=== PATIENT | female | born 1930 | race Caucasian/White ===

== ENCOUNTER → 2016-05-12 | Outpatient (CLI) | payer MEDICARE, OTHER ==
[~2016-05-12] MED LIST: /ONDA4TA OR; /PANT40TA OR; /PANT40TA PO; ACET-654 PO; ACET65TA OR; ALBU17IN INH; ASPI81TA83 OR; ASPI81TA85 PO; ATEN50TA2 OR; ATOR40TA PO; BACITAB OR; BACITAB3 PO; CALCCHW12 OR; CALCTAB9 OR; CALTRATE 600 + D PO; CALTTAB11 PO; CENTTAB PO; CIPR500T89 PO; CIPRO OR; COLA100C PO; DYAZ37.5 OR; ENSUPOW PO; ENTO3CAP5 PO; FERG1TAB PO; FLAG500T OR; FLAG500T PO; FLEEENE4 PR; LIDO5DIS36 TD; LIPI10TA OR; LIPI80TA PO; LOPR1TAB6 PO; LORT5TAB PO; LOVE1INJ SC; LYRI75CA PO; MAGN1TAB25 PO; MAGN250T PO; MAGO400T PO; MECL-68 PO; MECL25CH PO; MELOPOW OR; METO25TAB PO; METR0.00 TOP; METRONIDAZOLE TD; MILKSUS PO; MIRA3350 PO; MOME50SP; MULTCAP11 PO; NYAM10003 EXT; PERCOCET PO; PREG25CA PO; RECL5INJ2 IV; RECLAST IV IV; SENO8.6T10 PO; SENO8.6T2 PO; SYSTANE EYE DROPS OU; SYSTSOL11 OU; TRIA37.53 PO; TYLE167L PO; TYLE500T78 PO; VALI5TAB PO; VITA100037 PO; VITAMIN D OR; WARF05TA PO; [UNRECOGNIZED DRUG - CODE] OR; bactroban TOP
--- NOTE | 2016-05-17 10:17 | RADONC ---
RADIATION ONCOLOGY FOLLOWUP NOTE: DATE: 05/12/2016 DIAGNOSIS: Left breast cancer. STAGE: Stage I A, [id number] ECOG PERFORMANCE STATUS: 0 Ms. 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 The patient presents today reporting that she is doing quite well with no complaints at this time related to her radiation therapy or disease. She has no breast or bone pain. REVIEW OF SYSTEMS: The patient's review of systems is noncontributory. Denies nausea, vomiting, fevers, chills, night sweats, diplopia, headaches, anxiety or depression, anorexia, weight loss, visual disturbances, chest pain, urinary or bowel difficulties, bone pain, or neurological problems. PHYSICAL EXAMINATION: The patient is a well-developed, well-nourished female in no acute distress. HEENT exam is normocephalic, atraumatic. Extraocular movements are intact. There is no palpable cervical, supraclavicular, infraclavicular, axillary, or inguinal lymphadenopathy present. Lungs are clear to auscultation and percussion. Heart has a regular rate and rhythm. Abdomen is benign with no hepatosplenomegaly, masses, or tenderness. Breast examination reveals no masses or discharge bilaterally. Skeletal examination reveals no tenderness to pressure or percussion of the bony skeleton. Extremities reveal no clubbing, cyanosis, or edema. Neurologic exam is grossly intact, as is the remainder of the physical examination. ASSESSMENT: The patient is clinically CHARLES at this time and will be seen by us again in 6 months for further followup. She will also continue to be followed by her other physicians as well. cc: José Antonio Rodriguez MD
== END ==
LOC: M ONCR 13:14
PROVIDERS: ATTEND Radiology Radiation Oncology
DX: C50.412 Malignant neoplasm of upper-outer quadrant of left female breast (principal)

== ENCOUNTER 2016-07-09 20:10 | Observation (INO) | payer MEDICARE, OTHER ==
[~2016-07-09] VITALS: Ht 157.5 cm; Wt 60.0 kg
[~2016-07-09 20:10] MED LIST changes: -COLA100C PO; +COLA100C3 PO
[2016-07-09] MEDS ORDERED: TAMO20TA4 PO (20:41)
[2016-07-09] MEDS ORDERED: FLUTISP (20:41)
[2016-07-09] MEDS ORDERED: LABETALOL HCL 100 MG/20 ML VIAL IV STA (20:44)
[2016-07-09] MEDS ORDERED: MORPHINE 4 MG/ML 1ML SYRINGE IV ONE (20:45)
[2016-07-09 20:47] LABS: BASO % 0.5 % (0.0-1.0); EOS # 0.1 K/mm3 (0.0-0.50); EOS % 1.1 % (0.0-3.0); LARGE UNSTAINED CELL # 0.1 K/mm3 (0.0-0.4); LARGE UNSTAINED CELL % 2.1 % (0.0-4.0); LYMPH # 1.6 K/mm3 (1.5-4.5); LYMPH % 22.9 % (24.0-44.0); MEAN CORPUSCULAR HEMOGLOBIN 29.8 pg (27.0-33.0); MEAN CORPUSCULAR HGB CONC 32.4 g/dl (32.0-36.5); MONO # 0.5 K/mm3 (0.0-0.8); MONO % 8.2 % (0.0-5.0); NEUTROPHILS # 4.3 K/mm3 (1.8-7.7); NEUTROPHILS % 65.2 % (36.0-66.0); PLATELET COUNT, AUTOMATED 158 k/mm3 (150-450); RED CELL DISTRIBUTION WIDTH 13.1 % (11.5-14.5); WHITE BLOOD COUNT 6.5 K/mm3 (4.0-10.0)
[2016-07-09 21:12] LABS: ALBUMIN 3.6 GM/DL (3.2-5.2); ALBUMIN/GLOBULIN RATIO 1.09 (1.00-1.93); ALKALINE PHOSPHATASE 36 U/L (45-117); ALT/SGPT 21 U/L (12-78); ANION GAP 5 MEQ/L (8-16); AST/SGOT 29 U/L (15-37); BILIRUBIN,DIRECT 0.2 MG/DL (0.0-0.2); BILIRUBIN,TOTAL 0.6 MG/DL (0.2-1.0); BLOOD UREA NITROGEN 18 MG/DL (7-18); CALCIUM LEVEL 8.7 MG/DL (8.8-10.2); CARBON DIOXIDE LEVEL 33 MEQ/L (21-32); CHLORIDE LEVEL 101 MEQ/L (98-107); CREATININE FOR GFR 1.22 MG/DL (0.55-1.02); GLOMERULAR FILTRATION RATE 44.4 (>32); GLUCOSE, FASTING 104 MG/DL (83-110); POTASSIUM SERUM 3.8 MEQ/L (3.5-5.1); SODIUM LEVEL 139 MEQ/L (136-145); TOTAL PROTEIN 6.9 GM/DL (6.4-8.2)
[2016-07-09] MEDS ORDERED: ISOVUE-370 76% 100ML VIAL (Q9967) As Ordered ONE (21:33)
--- NOTE | 2016-07-09 22:30 | REPUSA ---
Clinical statement: Pain. Technique: Multiple axial CT images were obtained from the thoracic inlet through the floor of the pe lvis after administration of oral and nonionic intravenous contrast. No comparison is available. Findings: Chest: The pulmonary arteries are well-opacified with contrast, with no intraluminal filling defects to suggest embolism. The thoracic aorta is unremarkable. There is no pericardial or pleural effusion. The lungs are clear. There is no thoracic lymphadenopathy. The thyroid gland is within normal limits . Abdomen: The liver, spleen, pancreas, kidneys, and adrenal glands are unremarkable. Gallbladder is di stended, with moderate amount of pericholecystic free fluid. No gallstones are identified. There is n o evidence of biliary ductal dilatation. The aorta is within normal limits. There is no evidence of a bdominal lymphadenopathy or ascites. Pelvis: There is a large well circumscribed cystic mass in the left lower quadrant, measuring 6.9 x 9 .1 cm. This mass displaces bowel loops to the lateral aspect. There Is moderate sigmoid diverticulos is, without evidence of diverticulitis. Moderate amount of stool fills the colon. The urinary bladder is within normal limits. The other pelvic structures appear grossly intact. There is no evidence of pelvic lymphadenopathy or ascites. Bones: There are no suspicious osseous abnormalities seen. Minimal dextroscoliosis of the thoracis sp ine is appreciated. Right hip arthroplasty is intact. There is internal fixation of the proximal left femur. Multilevel degenerative disc disease is noted in the lower thoracic and lower lumbar spine, m ost severe from L3 through S1. Impression: 1. No evidence of aorticaneurysm or dissection. 2. No acute intrapulmonary disease. 3. Distended gallbladder with moderate pericholecystic free fluid. No gallstones or biliary ductal d ilatation. If there is further clinical concern, ultrasound is recommended. 4. Large, well circumscribed cystic mass in the left lower quadrant. No solid component is seen with in this lesion. Ultrasound may be helpful for further characterizes lesion. 5.. Moderate sigmoid diverticulosis without evidence of diverticulitis. Moderate constipation. No obs tructive or inflammatory bowel changes. 6. Spondylosis of the thoracic and lumbar spine as described. No acute osseous abnormalities.
--- NOTE | 2016-07-09 23:30 | REPUSA ---
Clinical history: Right upper quadrant pain. Findings: The pancreas is limited in visualization secondary to overlying bowel gas, but appears priya sly unremarkable. The liver demonstrates uniform echotexture and echogenicity, with no mass lesions. The gallbladder demonstrates echogenic shadowing foci consistent with gallstones. Gallbladder wall i s thickened, measuring 7 mm. There is a small amount of pericholecystic free fluid. The common bile d uct measures measuring up to 1 c. The right kidney measures 9.6 x 6.7 x 4.6 cm.There is no evidence o f hydronephrosis or nephrolithiasis. Impression: Cholelithiasis with gallbladder wall thickening, pericholecystic free fluid and extrahepa tic biliary ductal dilatation. The findings are highly suspicious for acute cholecystitis..
[2016-07-09] MEDS ORDERED: metroNIDAZOLE 500 MG in APPROPRIATE DILUENT 1 EA IV ONE (23:45)
[2016-07-09] MEDS ORDERED: CIPROFLOXACIN 400 MG in APPROPRIATE DILUENT 1 EA IV ONE (23:45)
[2016-07-10] MEDS ORDERED: METO12TA PO (00:14)
[2016-07-10] MEDS ORDERED: VITMTA PO (00:14)
[2016-07-10] MEDS ORDERED: BUDE3CAP PO (00:14)
[2016-07-10 01:10] VITALS: BP 172/84
[2016-07-10] MEDS ORDERED: ONDANSETRON 4MG/2ML VIAL (J2405) IV PRN (01:30)
[2016-07-10] MEDS ORDERED: MORPHINE 2 MG/ML 1ML SYRINGE IV PRN (01:30)
[2016-07-10] MEDS ORDERED: LR 1,000 ML IV SCH (01:30)
[2016-07-10 06:30] VITALS: BP 186/88
--- NOTE | 2016-07-10 08:48 | ECGEPIP ---
Stationary ECG Study [facility] - ED Test Date: 2016-07-09 Pat Name: LEA CAMPBELL Department: Room: [place] [address] Gender: F Virologist: chen : [id number] Requested By: LUH ALBA Order Number: [id number] Reading MD: Jory Murillo Measurements Intervals [place] Rate: 89 P: 61 NV: 152 QRS: 55 QRSD: 93 T: 112 QT: 356 QTc: 433 Interpretive Statements SINUS RHYTHM NONSPECIFIC ST & T-WAVE ABNORMALITY INCREASED RATE 12/03/15 Electronically Signed On 07-10-2016 8:47:55 EDT by Jory Murillo
--- NOTE | 2016-07-10 15:05 | REP ---
PORTABLE CHEST: ONE VIEW: HISTORY: Chest pain. COMPARISON: 08/02/2015 The lungs are hyperinflated. An increase in interstitial markings is present in the lungs. The cardiac silhouette is enlarged. The pulmonary vasculature is normal in appearance. IMPRESSION: 1. COPD. 2. Cardiomegaly. Signed by Faheem Marks MD 07/10/2016 08:11 A
--- NOTE | 2016-07-10 19:56 | HPE ---
DATE OF ADMISSION: 07/09/2016 CHIEF COMPLAINT: Epigastric pain. HISTORY OF PRESENT ILLNESS: The patient is a 85-year-old female who has never had any types of abdominal or epigastric pains in the past. No recent trauma or travel. She developed pain shortly after eating last evening right in the epigastric area wrapping around both sides of her upper abdomen towards her back. She tried walking it off, thinking that it was gas pains, but without any improvement. She came into emergency room for evaluation. CT scan was completed due to hypertension and to rule out acute vascular injury. However, it did show signs of likely acute cholecystitis which were confirmed on ultrasound. Therefore I was called to evaluate. This morning her pain has completely resolved. She has not had any problems since midnight, denies having any nausea or vomiting, fever, sweats or chills, or changes in bowel or bladder habits associated with this pain. It was a one-time pain and she has never had anything like it in the past. No previous abdominal surgeries. No problems with heartburn or acid reflux or any difficulty with swallowing. PAST MEDICAL HISTORY: Positive for hypertension, previous left breast cancer, hyperlipidemia, diverticulitis. PAST SURGICAL HISTORY: Cataract surgery, sinus surgery, left breast lumpectomy, left femur repair and right hip repair. ALLERGIES: ALENDRONATE KEFLEX, CIPRO, SULFA DRUGS: HOME MEDICATIONS: Please see med rec. SOCIAL HISTORY: Denies drug, alcohol, tobacco abuse. FAMILY HISTORY: Noncontributory. REVIEW OF SYSTEMS: Pertinent positives and negatives as stated in the history of present illness (HPI). PHYSICAL EXAMINATION: GENERAL: Alert and oriented times three. No acute distress. VITALS: Temperature 98.7, pulse 64, respirations 18, blood pressure 165/77, pulse oximetry 99% room air. HEENT: Pupils equal, round, and react to light and accommodation. HEART: S1, S2, regular rate and rhythm. LUNGS: Clear to auscultation bilaterally. ABDOMEN: Soft, nontender, nondistended. Bowel sounds positive. EXTREMITIES: No clubbing, cyanosis or edema. LABORATORY DATA: White count 6.5, hemoglobin 13, platelets 158. Potassium 3.8, creatinine 1.22. BNP 450. IMAGING STUDIES Abdominal ultrasound shows a gallbladder wall thickening at 7 mm. There are also gallstones, bile duct is up to 1 cm, and a very trace amount of pericholecystic fluid. ASSESSMENT/PLAN: The patient is an 85-year-old female with acute onset epigastric abdominal pain that has since then resolved, which was likely secondary to acute on chronic cholecystitis versus a very mild gastritis. Ultrasound findings of wall thickening and trace pericholecystic fluid and stones appear to be more chronic in nature rather than acute, especially associated with normal labs, both normal white count and the liver enzymes. With the patient's symptoms pain completely resolved at this time, recommendation is to discharge home. If symptoms return within the next couple days to a couple weeks, then she will see me in the office and after appropriate cardiac clearance, we will plan for elective surgery. However, if her symptoms do not return anytime in the near future, then she likely will not need any surgical intervention completed.
== END 2016-07-10 11:04 | disposition home or self-care (01) ==
LOC: M ED 21:04 → M ED INP 21:05 → M MSPAV 07-10 01:19
PROVIDERS: ADMIT Surgery; ATTEND Surgery
DX: K81.0 Acute cholecystitis (principal); I10 Essential (primary) hypertension; E78.4 Other hyperlipidemia; K57.32 Diverticulitis of large intestine without perforation or abscess without bleeding; Z85.3 Personal history of malignant neoplasm of breast; Z88.2 Allergy status to sulfonamides; Z79.899 Other long term (current) drug therapy; R06.02 Shortness of breath
CPT/HCPCS: 71010; 71260; 74177; 76705; 80048; 80076; 82550; 82553; 83690; 83880; 84484; 85025; 93005; 93041; 94760; 96365; 96367; 96375; 99285; G0378; J0744; Q9967

== ENCOUNTER 2016-07-12 10:43 | Emergency (ER) | payer MEDICARE, OTHER ==
[~2016-07-12] VITALS: Ht 157.5 cm; Wt 61.2 kg
[~2016-07-12 10:43] MED LIST changes: +BUDE3CAP PO; +FLUTISP; +METO12TA PO; +TAMO20TA4 PO; +VITMTA PO
[2016-07-12] MEDS ORDERED: ENSULIQ2 PO (10:53)
[2016-07-12] MEDS ORDERED: [UNRECOGNIZED DRUG - CODE] TD (10:53)
[2016-07-12] MEDS ORDERED: ONDANSETRON 4 MG TAB (S0181) PO ONE (11:15)
[2016-07-12 11:17] LABS: BASO % 0.6 % (0.0-1.0); EOS # 0.1 K/mm3 (0.0-0.50); EOS % 1.6 % (0.0-3.0); LARGE UNSTAINED CELL # 0.1 K/mm3 (0.0-0.4); LARGE UNSTAINED CELL % 2.1 % (0.0-4.0); LYMPH % 12.4 % (24.0-44.0); MEAN CORPUSCULAR HEMOGLOBIN 29.5 pg (27.0-33.0); MEAN CORPUSCULAR HGB CONC 32.2 g/dl (32.0-36.5); MEAN CORPUSCULAR VOLUME 91.7 fl (80.0-96.0); MONO # 0.4 K/mm3 (0.0-0.8); MONO % 6.2 % (0.0-5.0); NEUTROPHILS # 5.3 K/mm3 (1.8-7.7); PLATELET COUNT, AUTOMATED 176 k/mm3 (150-450); WHITE BLOOD COUNT 6.9 K/mm3 (4.0-10.0)
[2016-07-12] MEDS ORDERED: ZOFR4TAB3 PO (11:55)
[2016-07-12 12:00] VITALS: BP 178/80
[2016-07-16] MEDS ORDERED: AMOX500T2 PO (10:12)
== END 2016-07-12 12:12 | disposition home or self-care (01) ==
LOC: M ED 11:22
DX: R11.0 Nausea (principal); I10 Essential (primary) hypertension; M54.9 Dorsalgia, unspecified; E05.90 Thyrotoxicosis, unspecified without thyrotoxic crisis or storm; Z85.3 Personal history of malignant neoplasm of breast; Z79.82 Long term (current) use of aspirin; Z79.899 Other long term (current) drug therapy; Z79.818 Long term (current) use of other agents affecting estrogen receptors and estrogen levels

== ENCOUNTER 2016-07-26 07:24 | Inpatient (IN) | payer MEDICARE, OTHER ==
[~2016-07-26] VITALS: Ht 157.5 cm; Wt 58.1 kg
[~2016-07-26 07:24] MED LIST changes: +AMOX500T2 PO; +ENSULIQ2 PO; +ZOFR4TAB3 PO; +[UNRECOGNIZED DRUG - CODE] TD
[2016-07-26] MEDS ORDERED: NS 1,000 ML IV SCH (07:50)
[2016-07-26] MEDS ORDERED: ONDANSETRON 4MG/2ML VIAL (J2405) IV ONE (08:00)
--- NOTE | 2016-07-26 08:23 | REP ---
Clinical: Lower chest and abdominal pain . Comparison: 07/09/2016 . Findings: The mediastinum and cardiac silhouette are stable and within normal limits for portable technique. The lung betancur demonstrate chronic stable changes without acute consolidation, effusion, or pneumothorax. Skeletal structures are intact. Impression: No acute cardiopulmonary process. Signed by Pasquale Naranjo MD 07/26/2016 08:14 A
[2016-07-26] MEDS: MORPHINE 2 MG/ML 1ML SYRINGE IV PRN ×2 (08:30→08:54)
[2016-07-26 08:33] LABS: BASO % 0.5 % (0.0-1.0); EOS % 0.5 % (0.0-3.0); LARGE UNSTAINED CELL # 0.1 K/mm3 (0.0-0.4); LARGE UNSTAINED CELL % 1.5 % (0.0-4.0); LYMPH # 0.9 K/mm3 (1.5-4.5); LYMPH % 11.4 % (24.0-44.0); MEAN CORPUSCULAR HEMOGLOBIN 31.2 pg (27.0-33.0); MEAN CORPUSCULAR HGB CONC 33.4 g/dl (32.0-36.5); MEAN CORPUSCULAR VOLUME 93.4 fl (80.0-96.0); MONO # 0.6 K/mm3 (0.0-0.8); MONO % 8.2 % (0.0-5.0); NEUTROPHILS % 77.9 % (36.0-66.0); PLATELET COUNT, AUTOMATED 141 k/mm3 (150-450); RED CELL DISTRIBUTION WIDTH 12.9 % (11.5-14.5); WHITE BLOOD COUNT 7.7 K/mm3 (4.0-10.0)
[2016-07-26 08:45] LABS: INR 1.09
[2016-07-26 08:54] LABS: RENAL EPITHELIAL CELLS 1 /HPF
[2016-07-26 09:01] LABS: ALBUMIN 3.4 GM/DL (3.2-5.2); ALBUMIN/GLOBULIN RATIO 0.87 (1.00-1.93); BILIRUBIN,DIRECT 0.2 MG/DL (0.0-0.2); BILIRUBIN,TOTAL 0.7 MG/DL (0.2-1.0); CALCIUM LEVEL 9.2 MG/DL (8.8-10.2); GLOMERULAR FILTRATION RATE 55.8 (>32); POTASSIUM SERUM 3.5 MEQ/L (3.5-5.1); TOTAL PROTEIN 7.3 GM/DL (6.4-8.2)
[2016-07-26] MEDS ORDERED: ISOVUE-370 76% 100ML VIAL (Q9967) As Ordered ONE (09:28)
--- NOTE | 2016-07-26 11:40 | REP ---
CT STUDY OF THE ABDOMEN AND PELVIS WITH IV BUT WITHOUT ORAL CONTRAST: HISTORY: Left lower quadrant pain. Question diverticulitis. Comparison CT study July 09, 2016. Comparison is also made with November 13, [address] study[address] A remote prior CT is reviewed from February 2010. CT contrast dose: 100 mL of Isovue [address] FINDINGS: Again noted is the known right hepatic lobe hemangioma stable since the 2009 prior study measuring 3.9 cm in greatest diameter. There is some diffuse fatty infiltration of the liver with areas of fat sparing near the hemangioma. No other liver mass lesion is seen. The spleen is unchanged in size and homogeneous in texture. No adrenal lesion is seen on either side. No pancreatic lesion is seen. There is a large cyst at the lower pole left kidney again noted measuring 9.6 x 9.5 x 8.2 cm. No hydronephrosis or renal mass lesion is seen. The gallbladder is unremarkable. No retroperitoneal mass or adenopathy is seen. There is left colonic diverticulosis. There is a segment of left colon demonstrating mural thickening which may reflect mild diverticulitis but no abscess or free air is seen. There is minimal pericolonic stranding. Victor artifact is seen on pelvic CT imaging because of metallic hip replacement on the right and pins on the left. No abdominal wall defect is seen. Moderate colonic stool. IMPRESSION: 1. Segment of mural thickening in the sigmoid colon involved by diverticulosis with some pericolonic stranding. These changes are compatible with mild diverticulitis. No abscess or free air seen. 2. Benign large left renal cyst again noted. 3. Stable 3.9 cm hemangioma of the liver high in the right lobe. 4. No other significant finding. Signed by Ajith Pastrana MD 07/26/2016 12:19 P
[2016-07-26] MEDS ORDERED: metroNIDAZOLE 500 MG in APPROPRIATE DILUENT 1 EA IV ONE (11:45)
[2016-07-26] MEDS ORDERED: ERTAPENEM SODIUM 1 GM in NS MINI-BAG PLUS 50 ML IV ONE (11:45)
[2016-07-26] MEDS ORDERED: KETOROLAC 30 MG/ML VIAL (J1885) IV PRN (12:00)
[2016-07-26] MEDS ORDERED: NORCO, ANEXSIA 5/325MG TABLET (HYDROcodone/ACETAMINOPHEN) PO PRN (12:00)
[2016-07-26] MEDS ORDERED: ACETAMINOPHEN TAB 650MG DOSE (2X325MG) PO PRN (12:00)
[2016-07-26] MEDS ORDERED: ONDANSETRON 4MG/2ML VIAL (J2405) IV PRN (12:00)
[2016-07-26] MEDS ORDERED: MOM 30ML SUSPENSION UDC PO PRN (12:00)
[2016-07-26] MEDS ORDERED: MORPHINE 2 MG/ML 1ML SYRINGE IV PRN (12:00)
[2016-07-26 13:35] VITALS: BP 147/69
[2016-07-26] MEDS: LR 1,000 ML IV SCH ×2 (14:44→20:55)
[2016-07-26] MEDS: HEPARIN SOD (PORCINE) 5000 UNITS/ML VIAL SC SCH ×2 (14:45→20:54)
[2016-07-26] MEDS: SENOKOT S TAB PO SCH ×2 (14:45→20:56)
[2016-07-26] MEDS: ASPIRIN 81 MG ENTERIC TAB PO SCH (14:45)
[2016-07-26] MEDS: MULTIVITAMINS/MINERALS THERAP 1 TAB PO SCH (14:45)
[2016-07-26] MEDS: BUDESONIDE EC 3 MG CAP (ENTOCORT EC) PO SCH (14:45)
[2016-07-26] MEDS: TAMOXIFEN CITRATE 10 MG TAB PO SCH (14:45)
[2016-07-26] MEDS: FLUTICASONE PROP 0.05% NASAL SPRAY 16 GM (FLONASE) SCH (14:45)
[2016-07-26] MEDS: PANTOPRAZOLE 40MG TAB (PROTONIX) PO SCH (14:45)
[2016-07-26] MEDS: VITAMIN D 1,000 INTERNATIONAL UNITS TABLET PO SCH (14:46)
--- NOTE | 2016-07-26 18:49 | CR ---
DATE OF CONSULTATION: 07/26/2016 CONSULT REQUESTED BY: Dr. Morris. REASON FOR CONSULT: Medical management. CHIEF COMPLAINT: Abdominal pain. PRIMARY CARE PHYSICIAN: Dr. Rodriguez. RADIOLOGY ONCOLOGIST: Dr. Schumacher. ONCOLOGIST: Dr. Lopez. PREMISES TECHNICIAN: Dr. Benavides. CODE STATUS: DO NOT RESUSCITATE/DO NOT INTUBATE. HISTORY OF PRESENT ILLNESS: MS. Serrano is an 85-year-old female with multiple past medical history who presented due to experiencing abdominal pain. Patient expressed that the pain is mostly sharp and tender to palpation all over her abdomen and especially on the left lower quadrant. Patient expressed that he pain started yesterday in the morning, 4 or 5 out of 10. Patient could tolerate orals in that time. Patient had three episodes of bowel movements; however, patient did not experience any diarrhea or hematochezia or melena. She also lost her appetite and had some chicken broth for lunch and toast for dinner; however, this morning , around 5 a.m., patient expressed that her pain increased tremendously to 10 out of 10, sharp, especially on the left lower quadrant. Patient expressed that around 6:30, she called her neighbor to bring her to the hospital. Patient had one episode of small bowel movement; however, patient denies noticing melena or hematochezia. Patient also expressed that she was mildly nauseated. However, patient denied episode of vomiting. Patient did not experience chest pain, palpitation, racing or skipping heartbeat. Patient also denies noticing erythema or extending of her abdominal. patient admitted on 07/09/2016 due to epigastric pain secondary to acute on chronic cholecystitis. she was schedule to have elective cholecystectomy today by Dr. Morris. Due to her extended cardiac history she was seen and cleared by Dr. Benavides for elective cholecystectomy. patient also expressed that she has sore throat and rapid test was positive for strep throat. General surgery was consulted and patient was admitted by general surgery. Hospitalist consulted for medical management. Patient received one dose of Zofran as well as started on ertapenem and metronidazole IV. ALLERGIES: ALENDRONATE, CEPHALEXIN, CIPROFLOXACIN, SULFA DRUGS. HOME MEDICATIONS: - amoxicillin clavulanate 500 mg by mouth twice a day - aspirin 81 mg by mouth daily - atorvastatin 40 mg by mouth every evening - budesonide 3 mg by mouth daily - Caltrate one tablet by mouth twice a day - Ensure 1 liquid twice a day - fluticasone propionate one aspirate in nares daily - magnesium 400 mg by mouth twice a day - meclizine 25 mg by mouth as needed for vertigo, dizziness - metoprolol 25 mg by mouth twice a day - metronidazole 1 dose topical daily as needed for rosacea - multivitamin 1 tablet by mouth daily - oxybutynin 3.9 mg transdermally every four days - Systane Ultra one drop each eye as needed for dry eye - tamoxifen 20 mg by mouth daily - vitamin D 1000 units by mouth daily PAST MEDICAL HISTORY: 1. Coronary artery disease. Had dqa-[id number] myocardial infarction (NSTEMI ) 12/2013 and 02/2014. Normal perfusion, ejection fraction 51%. [facility] in [place] 11/2015 was normal, normal perfusion. 2. Hypertension. White coat syndrome. 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 4. Hyperlipidemia. 5. Osteoporosis. Dexa last done on 07/2009, not repeated as had left/right hip fracture, gets re-classed , , 2014 and discontinue after five doses. 6. Hyperplastic cone biopsies in 1988. 7. Generalized osteoarthritis (OA). 8. Vitamin D deficiency. 9. Meniere's disease. 10. Diverticulitis, recurrent. 11. Thyroid nodule. 12. Vestibular neuritis. 13. Echocardiogram 12/2013. Normal left side and systolic function, grade 1 diastolic congestive heart failure and mildly hypokinetic right ventricle, moderate tricuspid insufficiency, severe pulmonary hypertension. 14. Left hip fracture 12/2013. Qny-TN-ohafwhkyc myocardial infarction (NSTEMI) found postoperatively. 15. Right breast cancer, finding ductal carcinoma, ER+ - HI+ - HER2 negative and one scan 12/27 negative for metastasis. 16. Stress urinary incontinence/urge incontinence. PAST SURGICAL HISTORY: 1. Fine needle aspiration (FNA) of thyroid nodules 12/2002. 2. Sinus symptoms times two. 3. Colonoscopy. Hydroplastic polyp only 10/2008. 4. Left hip fracture 11/2011. 5. Right hip fracture 11/2013. 6. Left breast lumpectomy 09/2015. FAMILY HISTORY: Patient does not have any children. Patient does not have any brothers or sisters. Patient's father due to coronary artery disease, diagnosed with heart disease. Patient's mother due to ulcers, due to old age. SOCIAL HISTORY: Patient denies history of illicit drug use. Patient denies history of smoking or alcohol usage. Patient has traveled to [place] and [place]. Patient does not have pets at home. Patient lives alone. REVIEW OF SYSTEMS: GENERAL: Patient denies fever, chills, night sweats, weight loss, weight gain. HEENT: Patient denies acute vision or hearing changes. Patient denies problems with chewing food or sinusitis. NECK: Patient has loss of circulation and motion of her neck; however, she expressed that she has a sore throat. HEART: Patient denies palpitation, racing or skipping heartbeat. No chest pain. LUNGS: Patient has shortness of breath and coughing. ABDOMEN: Patient expressed that her pain has decreased to 5/10, especially on the left lower quadrant, which exists with palpitations. Patient denies melena, hematochezia, hemoptysis; however, patient was nauseated, but no vomiting. NEUROLOGICAL: Patient has history of transient ischemic attack, seizure-type activities. PHYSICAL EXAMINATION: VITAL SIGNS: Temperature 98.1, pulse 88, respiratory rate 16, blood pressure 176/74, pulse oximetry 98% on room air. GENERAL APPEARANCE: Patient was lying on the bed, in no acute distress. Patient was alert, awake and oriented to time, place and person. HEENT: Normocephalic, atraumatic. Pupils are reactive to light. Oral mucosa is moist. NECK: Soft. No lymphadenopathy or thyromegaly. No jugular venous distention (JVD). HEART: Regular rate and rhythm. Normal S1, S2. ABDOMEN: Soft. Tender to palpation in all quadrants, especially tender to palpation in the left upper and lower quadrants; however, no guarding. Positive bowl sounds in all quadrants. No erythema or lymphadenopathy or swelling was noted. No hepatosplenomegaly. LUNGS: Clear breath sounds bilaterally. Good air movement. NEUROLOGIC: Cranial nerves II-XII intact. No focal deficiencies. EXTREMITIES: No lower extremity edema. Plus two pulses in both upper and lower extremities. Normal strength in both upper and lower extremities (however, at this point 5/5). LABORATORY DATA: White blood cells 7.7, red blood cells 4.36, hemoglobin 13.6, hematocrit 40.7, MCV 93.4, MCH 31.2, MCHC 33.4, RDW 12.9, platelet count 141. Neutrophil percentage 7.9, lymphocyte percentage 14.4, monocyte percentage 8.2, eosinophil percentage 0.5, basophil percentage 0.2, leukocyte percentage 1.5. PT 14.2. INR 1.09. APTT 25.4. Sodium 141, potassium 3.5, chloride 103, carbon dioxide 30, anion gap 8, BUN 20, creatinine 1, glomerular filtration rate 55.8, fasting glucose 107, lactic acid 1.2, calcium 9.2, magnesium 2. Total bilirubin 0.7, direct bilirubin 0.2, AST 20, ALT 15, alkaline phosphatase 38, total protein 7.3, albumin 3.4, lipase 233. Urinalysis (UA): Urine color yellow, urine appearance hazy, urine pH 8, urine specific gravity 1.019, urine protein negative, urine glucose negative, urine ketones negative, urine blood negative, urine nitrate negative, urine bilirubin negative, urine urobilinogen 0.2, urine leukocyte esterase negative, urine white blood cells 2, urine red blood cells 2, urine hyaline casts 0.2, urine bacteria negative, urine common epithelial cells 11, urine transient epithelial cells 2. IMAGING TECHNIQUE: Chest x-ray shows no acute cardiopulmonary process. CT abdomen and pelvis with IV contrast only shows segment of mural thickening in the sigmoid colon involved by the diverticulosis and some pericolonic ascending. These changes are compatible with mild diverticulitis. No abscess or free air is seen. A benign large renal cyst again noted. A stable at 3.9 cm hemangioma of the liver high in the right lobe. No other significant finding was noticed. ASSESSMENT AND PLAN: 1. Noncomplicated diverticulitis. Dr. Morris has been consulted by the emergency room (ER). At this time, patient was started on lactate Ringer's at the rate of 125 mL per hour. Patient is also on Flagyl and Invanz 1 gram IV every 24 hours. Patient is on a clear liquid diet. Patient is on Zofran and Protonix. We will continue the patient on Toradol 50 mg IV every 6 hours as needed and morphine. 2. History of coronary artery disease. Patient has a history of eoz-[id number] myocardial infarction (NSTEMI). At this time, we will continue patient on aspirin and Lipitor. Continue patient on Lopressor 25 mg by mouth twice a day. 3. Hyperlipidemia. Patient is on Lipitor 40 mg by mouth every evening. 4. Vitamin D deficiency. We will continue patient on vitamin D 1000 units by mouth daily. 5. Gastrointestinal (GI) prophylaxis. Patient is on Protonix 40 mg by mouth daily. 6. Mixed stress and urgency urinary incontinence. Patient is on oxybutynin 5 mg by mouth daily. 7. Deep venous thrombosis (DVT) prophylaxis. Patient is on heparin 5000 units subcutaneously every 8 hours. 8. Nasal allergies. We will continue patient on fluticasone one spray in each nostril daily. 9. Strep throat. Patient is on Invanz. 10. Chronic Cholecystitis. At this time patient is stable. Surgery is consulted. My preceptor for this patient encounter was Dr. Franchesca Hoff. The preceptor was physically present in the building during the encounter and was fully available as needed. All aspects of the patient interview, examination, medical decision-making process, and medical care plan development were reviewed and approved by the preceptor. The preceptor is aware and concurs with the plan as stated in the body of this note and will attest to such by his/her co-signature. SHYANN
[2016-07-26] MEDS: ATORVASTATIN 20 MG TAB PO SCH (20:55)
[2016-07-26] MEDS: metroNIDAZOLE 500 MG in APPROPRIATE DILUENT 1 EA IV SCH (20:55)
[2016-07-26] MEDS: METOPROLOL TART 25 MG TABLET PO SCH (20:56)
[2016-07-26 22:00] VITALS: BP 119/57
[2016-07-27] MEDS: metroNIDAZOLE 500 MG in APPROPRIATE DILUENT 1 EA IV SCH ×3 (04:24→20:07)
[2016-07-27] MEDS: LR 1,000 ML IV SCH (05:43)
[2016-07-27] MEDS: HEPARIN SOD (PORCINE) 5000 UNITS/ML VIAL SC SCH ×3 (05:44→21:58)
[2016-07-27 06:00] VITALS: BP 142/68
[2016-07-27 07:03] LABS: MEAN CORPUSCULAR HEMOGLOBIN 30.7 pg (27.0-33.0); MEAN CORPUSCULAR HGB CONC 33.4 g/dl (32.0-36.5); MEAN CORPUSCULAR VOLUME 91.7 fl (80.0-96.0); WHITE BLOOD COUNT 5.2 K/mm3 (4.0-10.0)
[2016-07-27 07:19] LABS: ALBUMIN 2.8 GM/DL (3.2-5.2); ALBUMIN/GLOBULIN RATIO 0.78 (1.00-1.93); ALKALINE PHOSPHATASE 33 U/L (45-117); ALT/SGPT 12 U/L (12-78); ANION GAP 3 MEQ/L (8-16); AST/SGOT 19 U/L (15-37); BILIRUBIN,TOTAL 0.6 MG/DL (0.2-1.0); BLOOD UREA NITROGEN 11 MG/DL (7-18); CARBON DIOXIDE LEVEL 33 MEQ/L (21-32); CHLORIDE LEVEL 106 MEQ/L (98-107); CREATININE FOR GFR 0.92 MG/DL (0.55-1.02); GLOMERULAR FILTRATION RATE > 60.0 (>32); GLUCOSE, FASTING 87 MG/DL (83-110); MAGNESIUM LEVEL 1.9 MG/DL (1.8-2.4); POTASSIUM SERUM 3.5 MEQ/L (3.5-5.1); SODIUM LEVEL 142 MEQ/L (136-145); TOTAL PROTEIN 6.4 GM/DL (6.4-8.2)
[2016-07-27] MEDS: TAMOXIFEN CITRATE 10 MG TAB PO SCH (08:40)
[2016-07-27] MEDS: SENOKOT S TAB PO SCH ×2 (08:40→20:06)
[2016-07-27] MEDS: VITAMIN D 1,000 INTERNATIONAL UNITS TABLET PO SCH (08:40)
[2016-07-27] MEDS: MULTIVITAMINS/MINERALS THERAP 1 TAB PO SCH (08:40)
[2016-07-27] MEDS: BUDESONIDE EC 3 MG CAP (ENTOCORT EC) PO SCH (08:40)
[2016-07-27] MEDS: METOPROLOL TART 25 MG TABLET PO SCH ×2 (08:41→20:07)
[2016-07-27] MEDS: ASPIRIN 81 MG ENTERIC TAB PO SCH (08:41)
[2016-07-27] MEDS: PANTOPRAZOLE 40MG TAB (PROTONIX) PO SCH (08:41)
[2016-07-27] MEDS: FLUTICASONE PROP 0.05% NASAL SPRAY 16 GM (FLONASE) SCH (08:41)
[2016-07-27] MEDS ORDERED: oxyBUTYnin *DITROPAN XL* 5 MG TABCR PO SCH (09:00)
[2016-07-27] MEDS ORDERED: ENTER DRUG NAME HERE (PATIENT'S OWN MED) TD SCH (09:00)
--- NOTE | 2016-07-27 09:15 | HPE ---
DATE OF ADMISSION: 07/26/2016 CHIEF COMPLAINT: Abdominal pain. HISTORY OF PRESENT ILLNESS: The patient is an 85-year-old female well-known to me. She was scheduled to have surgery today, 07/26/2016. However, she called in in the morning and canceled her surgery, saying that she was in the emergency room. I came down to evaluate her. She claims that she has been having mild pain the last couple days. However, she woke up around 5 this morning with excruciating sharp pains in the left lower side of her abdomen, as well as a sore throat, so she came into emergency room to be evaluated. They did a rapid stress test that was positive for strep throat and also found that she had severe left lower quadrant abdominal pain. She denies any right upper quadrant pains. No fevers or chills. No nausea or vomiting. No changes in bowel movements. She has had episodes of diverticulitis in the past, most recently 2 years ago, and her pains today feel very similar to that type of pain. Therefore, the emergency room did check a CT abdomen and pelvis, which did come out positive for acute diverticulitis. Her white laboratories are normal. However, she has difficulty taking by mouth Flagyl. Therefore, we will keep her in the hospital for a day or two with intravenous (IV) antibiotics and likely will reschedule her cholecystectomy for the next couple of weeks. ALLERGIES ALENDRONATE. KEFLEX. CIPRO. SULFA DRUGS. HOME MEDICATIONS: Please see medical record. PAST MEDICAL HISTORY: Coronary artery disease, hypertension, hyperlipidemia, osteoporosis, osteoarthritis, vitamin D deficiency, Meniere disease, diverticulitis, right breast cancer. PAST SURGICAL HISTORY: Sinus surgery times two, colonoscopy, left hip fracture repair, right hip fracture repair, left breast lumpectomy. FAMILY HISTORY: Noncontributory. SOCIAL HISTORY: Denies any drug, alcohol, tobacco abuse. REVIEW OF SYSTEMS: Pertinent positives and negative as stated in the history of present illness (HPI). PHYSICAL EXAMINATION: General: Alert and oriented times three. No acute stress. Vitals: Temperature 98.1, pulse 88, respirations 16, blood pressure 176/74, pulse oximetry 98% on room air. HEENT: Pupils equal, round, and react to light accommodation. Heart: S1, S2. Regular rate and rhythm. Lungs: Clear to auscultation bilaterally. Abdomen: Soft, tender to palpation left lower quadrant only. No rebound and no guarding. Extremities: No clubbing, cyanosis, or edema. LABORATORIES: White count 7.7, hemoglobin 13.6, platelets 141. IMAGING: CT abdomen and pelvis with contrast shows segment of mural thickening in the sigmoid colon involved by diverticulosis with some pericolonic ascending inflammation. Changes are compatible with mild diverticulitis. No signs of abscess or free air. There is also benign large right renal cyst again noted and a stable 3.9 cm hemangioma of the liver of the right lobe. ASSESSMENT AND PLAN: Again, the patient is an 85-year-old female currently with noncomplicated diverticulitis having severe pains in the left side. We will keep her in the hospital for a day or two with IV antibiotics, clear-liquid diet until her pain is resolved. Once her pain is resolved, she will be discharged home with by mouth antibiotics, and she will followup with me to reschedule her outpatient cholecystectomy in the next week or two. She has already been cleared by Dr. Benavides for that procedure. She also has a history of [id number] elevation myocardial infarction (NSTEMI), hyperlipidemia, vitamin D deficiency, stress urgency, urinary incontinence, and recent breast cancer. I have asked the medicine service to evaluate her and help with her medical management during this hospital stay. She will be seen by Dr. Franchesca Hoff. Any recommendations that they have will be appreciated.
[2016-07-27] MEDS ORDERED: ERTAPENEM SODIUM 1 GM in NS MINI-BAG PLUS 50 ML IV SCH (12:00)
[2016-07-27 14:00] VITALS: BP 155/69
[2016-07-27] MEDS: ATORVASTATIN 20 MG TAB PO SCH (20:06)
[2016-07-27 22:00] VITALS: BP 170/78
[2016-07-28] MEDS: metroNIDAZOLE 500 MG in APPROPRIATE DILUENT 1 EA IV SCH (03:35)
[2016-07-28] MEDS: HEPARIN SOD (PORCINE) 5000 UNITS/ML VIAL SC SCH (05:14)
[2016-07-28 06:00] VITALS: BP 164/74
[2016-07-28 06:12] LABS: ALBUMIN 2.6 GM/DL (3.2-5.2); ALBUMIN/GLOBULIN RATIO 0.84 (1.00-1.93); ALKALINE PHOSPHATASE 29 U/L (45-117); ALT/SGPT 12 U/L (12-78); ANION GAP 7 MEQ/L (8-16); AST/SGOT 22 U/L (15-37); BILIRUBIN,TOTAL 0.4 MG/DL (0.2-1.0); BLOOD UREA NITROGEN 9 MG/DL (7-18); CALCIUM LEVEL 8.5 MG/DL (8.8-10.2); CARBON DIOXIDE LEVEL 31 MEQ/L (21-32); CHLORIDE LEVEL 106 MEQ/L (98-107); CREATININE FOR GFR 0.84 MG/DL (0.55-1.02); GLOMERULAR FILTRATION RATE > 60.0 (>32); GLUCOSE, FASTING 88 MG/DL (83-110); MAGNESIUM LEVEL 1.7 MG/DL (1.8-2.4); POTASSIUM SERUM 3.4 MEQ/L (3.5-5.1); SODIUM LEVEL 144 MEQ/L (136-145); TOTAL PROTEIN 5.7 GM/DL (6.4-8.2)
[2016-07-28 06:16] LABS: MEAN CORPUSCULAR HEMOGLOBIN 30.5 pg (27.0-33.0); MEAN CORPUSCULAR HGB CONC 32.9 g/dl (32.0-36.5); MEAN CORPUSCULAR VOLUME 92.7 fl (80.0-96.0); RED CELL DISTRIBUTION WIDTH 12.8 % (11.5-14.5)
[2016-07-28] MEDS ORDERED: AMOX500T2 PO (07:27)
[2016-07-28] MEDS ORDERED: FLUC10TA PO (07:27)
[2016-07-28] MEDS: BUDESONIDE EC 3 MG CAP (ENTOCORT EC) PO SCH (08:26)
[2016-07-28] MEDS: TAMOXIFEN CITRATE 10 MG TAB PO SCH (08:26)
[2016-07-28] MEDS: SENOKOT S TAB PO SCH (08:26)
[2016-07-28] MEDS: PANTOPRAZOLE 40MG TAB (PROTONIX) PO SCH (08:26)
[2016-07-28] MEDS: ASPIRIN 81 MG ENTERIC TAB PO SCH (08:26)
[2016-07-28 08:27] VITALS: BP 172/82
[2016-07-28] MEDS: VITAMIN D 1,000 INTERNATIONAL UNITS TABLET PO SCH (08:27)
[2016-07-28] MEDS: MULTIVITAMINS/MINERALS THERAP 1 TAB PO SCH (08:27)
[2016-07-28] MEDS: METOPROLOL TART 25 MG TABLET PO SCH (08:27)
[2016-07-28] MEDS: FLUTICASONE PROP 0.05% NASAL SPRAY 16 GM (FLONASE) SCH (08:27)
[2016-07-28 09:00] VITALS: BP 141/85
--- NOTE | 2016-07-28 10:09 | DSES ---
DATE OF ADMISSION: 07/26/2016 DATE OF DISCHARGE: 07/28/2016 ADMISSION DIAGNOSIS: Acute noncomplicated diverticulitis. DISCHARGE DIAGNOSIS: Acute noncomplicated diverticulitis. HOSPITAL COURSE: The patient 85-year-old female who presented with left lower quadrant abdominal pain, found have acute diverticulitis on CT scan in the emergency room. Due to pain and inability to take p.o. Flagyl at home, with multiple other drug allergies, the recommendation was to keep her in the hospital for a couple of days on IV antibiotics until her pain improved. Over the last 48 hours her pain has continually improved. She is tolerating clear liquid diet. No nausea, no vomiting. No other complaints. She also had a sore throat on admission and was diagnosed positive for strep throat in the ER. By hospital day 1, her pain and her throat was completely resolved. The plan is to discharge home today and continue with clear liquid diet until her pain is 100% gone. Once that is the case, she will be advanced to low-residue, low fiber diet for the next 2 weeks and then she will be switched over to a high fiber diet. She will also be discharged home with p.o. antibiotics for the next 10 days that will cover both the diverticulitis as well as her strep throat. She already has an appointment to followup with me in the office as an outpatient and she has an outpatient cholecystectomy scheduled for next Tuesday as well due to her history of chronic cholecystitis.
== END 2016-07-28 09:08 | disposition home or self-care (01) | DRG 392 ==
LOC: M ED 10:04 → M ED INP 12:00 → M MSPAV 13:36
PROVIDERS: ADMIT Surgery; ATTEND Surgery
DX: K57.92 Diverticulitis of intestine, part unspecified, without perforation or abscess without bleeding (principal); I50.32 Chronic diastolic (congestive) heart failure; Z66 Do not resuscitate; Z79.899 Other long term (current) drug therapy; Z79.82 Long term (current) use of aspirin; I25.2 Old myocardial infarction; I25.10 Atherosclerotic heart disease of native coronary artery without angina pectoris; E78.5 Hyperlipidemia, unspecified; M81.0 Age-related osteoporosis without current pathological fracture; E55.9 Vitamin D deficiency, unspecified; M19.90 Unspecified osteoarthritis, unspecified site; E04.1 Nontoxic single thyroid nodule; I36.0 Nonrheumatic tricuspid (valve) stenosis; N39.46 Mixed incontinence; Z88.2 Allergy status to sulfonamides; Z88.8 Allergy status to other drugs, medicaments and biological substances; Z85.3 Personal history of malignant neoplasm of breast

== ENCOUNTER → 2016-08-06 | Day surgery (SDC) | payer MEDICARE, OTHER ==
[~2016-08-06] VITALS: Ht 157.5 cm; Wt 59.0 kg
[~2016-08-06] MED LIST changes: +ACET500L PO; +ACET500T37 PO; +BUPIVACAINE/EPIN 0.25% 30 ML VIAL As Ordered ONE; +CLINDAMYCIN 600 MG in APPROPRIATE DILUENT 1 EA IV ONE; +FLUC10TA PO; +GLYCOPYRROLATE INJ 0.2 MG/ML 2 ML VIAL As Ordered ONE; +LABETALOL HCL 100 MG/20 ML VIAL As Ordered ONE; +LR 1,000 ML IV ONE; +LR 1,000 ML IV SCH; +MIDAZOLAM INJ 2 MG/2 ML VIAL (J2250) As Ordered ONE; +NEOSTIGMINE 1MG/ML 5 ML SYRINGE (J2710) As Ordered ONE; +NORCO, ANEXSIA 5/325MG TABLET (HYDROcodone/ACETAMINOPHEN) PO PRN; +ONDANSETRON 4MG/2ML VIAL (J2405) IV PRN; +PERCOCET 5MG/325MG TAB PO PRN; +PHENYLephrine HCL 500 MCG/5 ML (100MCG/ML) SYRINGE (J2370) As Ordered ONE; +ePHEDrine SULFATE 25 MG/5 ML(5MG/ML) SYRINGE As Ordered ONE; +fentaNYL 100 MCG/2 ML INJECTION (J3010) As Ordered ONE; +fentaNYL 100 MCG/2 ML INJECTION (J3010) IV PRN
[2016-08-06 16:30] VITALS: BP 136/61
--- NOTE | 2016-08-07 00:35 | RO ---
DATE OF PROCEDURE: 08/06/2016 PREOPERATIVE DIAGNOSIS: Acute cholecystitis. POSTOPERATIVE DIAGNOSIS: Acute cholecystitis. PROCEDURE: Laparoscopic cholecystectomy. SURGEON: Dr. Sammy Morris LITERARY AGENT: Dr. Taylor ANESTHESIA: General. ESTIMATED BLOOD LOSS: 5 mL. COMPLICATIONS: None. INDICATIONS FOR PROCEDURE: The patient is an 85-year-old female who presents with right upper quadrant abdominal pain. In the emergency room (ER), she was found to have signs of acute cholecystitis on ultrasound. She was discharged home on antibiotics for elective outpatient cholecystectomy. She has not had any pain in the last 2 weeks. She is now here for surgery. The risks and benefits of the procedure, not limited to but including bleeding, infection, hernia formation, damage to surrounding structure and need for further surgery was discussed in detail with the patient, informed consent was obtained, procedure was planned. DESCRIPTION OF PROCEDURE: The patient was brought back to operating room six after sufficient sedation, the abdomen was sterilely prepped and draped. Next, a time-out was done to confirm proper patient, proper procedure. Following that, an incision was made in the left upper quadrant at Novak's point, Veress needle was inserted and the abdomen was insufflated 15 mmHg. Next, a 5 mm infraumbilical incision was made. Incision was carried down to the level of the fascia. A 5 mm Optiview port was used to gain access to the abdomen. Once the abdomen was entered, the Veress needle site was examined. There were no signs of injury. Veress needle was then removed, 10 mm port placed subxiphoid, two 5 mm ports in the right upper quadrant. Fundus of the gallbladder was grasped and elevated up to her right shoulder. Cystic duct and cystic artery were both clearly identified. They were both doubly clipped and cut. The gallbladder was then removed from the gallbladder fossa using electrocautery. The gallbladder was brought out intact through a 10 mm EndoCatch bag and subxiphoid port site. Abdomen was then desufflated. Skin incision was closed with #4-0 Vicryl subcuticular sutures, abdomen was cleaned and dried. Steri-Strips, 4 x 4 and tape were applied, thus ending procedure.
== END | disposition home or self-care (01) ==
LOC: M SDC 11:16
PROVIDERS: ATTEND Surgery
DX: K81.0 Acute cholecystitis (principal); I10 Essential (primary) hypertension; E78.00 Pure hypercholesterolemia, unspecified; F41.9 Anxiety disorder, unspecified; F32.9 Major depressive disorder, single episode, unspecified; C50.912 Malignant neoplasm of unspecified site of left female breast; K57.32 Diverticulitis of large intestine without perforation or abscess without bleeding; R60.0 Localized edema; M12.9 Arthropathy, unspecified; R29.898 Other symptoms and signs involving the musculoskeletal system; R32 Unspecified urinary incontinence; Z88.1 Allergy status to other antibiotic agents; Z88.2 Allergy status to sulfonamides; Z88.8 Allergy status to other drugs, medicaments and biological substances; Z79.899 Other long term (current) drug therapy; Z79.82 Long term (current) use of aspirin; Z96.1 Presence of intraocular lens; Z78.0 Asymptomatic menopausal state; Z92.3 Personal history of irradiation; Z92.21 Personal history of antineoplastic chemotherapy; Z87.81 Personal history of (healed) traumatic fracture
CPT/HCPCS: 47562; 88304; J2250; J2370; J2710; J3010

== ENCOUNTER → 2016-08-26 | Outpatient (CLI) | payer MEDICARE, OTHER ==
[~2016-08-26] MED LIST changes: -ACET-654 PO; +ACET-683 PO; +ACET1TAB17 PO; -ACET500T37 PO; +ACET50TAOT PO; +AMOX875T2 PO; +AQUAOIN2 TOP; -ATOR40TA PO; +ATOR40TA75 PO; +AUGM875T28 PO; +BACITAB PO; -BACITAB3 PO; +BOOSLIQ PO; -BUPIVACAINE/EPIN 0.25% 30 ML VIAL As Ordered ONE; +CIPR-249 PO; -CIPR500T89 PO; +CLEO150C PO; -CLINDAMYCIN 600 MG in APPROPRIATE DILUENT 1 EA IV ONE; -COLA100C3 PO; +COLA100C5 PO; +DOCU100C16 PO; +ENSULIQ10 PO; -ENSULIQ2 PO; -GLYCOPYRROLATE INJ 0.2 MG/ML 2 ML VIAL As Ordered ONE; -LABETALOL HCL 100 MG/20 ML VIAL As Ordered ONE; +LASI20TA PO; -LIDO5DIS36 TD; +LIDO5DIS41 TD; +LISI10TA4 PO; -LR 1,000 ML IV ONE; -LR 1,000 ML IV SCH; +MECL1CHW2 PO; -MECL25CH PO; -METO12TA PO; +METO1TAB87 PO; -MIDAZOLAM INJ 2 MG/2 ML VIAL (J2250) As Ordered ONE; -NEOSTIGMINE 1MG/ML 5 ML SYRINGE (J2710) As Ordered ONE; -NORCO, ANEXSIA 5/325MG TABLET (HYDROcodone/ACETAMINOPHEN) PO PRN; -ONDANSETRON 4MG/2ML VIAL (J2405) IV PRN; -PERCOCET 5MG/325MG TAB PO PRN; -PHENYLephrine HCL 500 MCG/5 ML (100MCG/ML) SYRINGE (J2370) As Ordered ONE; +POTA10CA PO; -SENO8.6T2 PO; +SENO8.6T5 PO; -VITA100037 PO; +VITA100067 PO; -ePHEDrine SULFATE 25 MG/5 ML(5MG/ML) SYRINGE As Ordered ONE; -fentaNYL 100 MCG/2 ML INJECTION (J3010) As Ordered ONE; -fentaNYL 100 MCG/2 ML INJECTION (J3010) IV PRN
[2016-08-26 17:54] LABS: ANION GAP 5 MEQ/L (8-16); BLOOD UREA NITROGEN 17 MG/DL (7-18); CALCIUM LEVEL 9.6 MG/DL (8.8-10.2); CARBON DIOXIDE LEVEL 33 MEQ/L (21-32); CHLORIDE LEVEL 105 MEQ/L (98-107); CREATININE FOR GFR 0.89 MG/DL (0.55-1.02); GLOMERULAR FILTRATION RATE > 60.0 (>32); GLUCOSE, FASTING 94 MG/DL (83-110); MAGNESIUM LEVEL 2.1 MG/DL (1.8-2.4); POTASSIUM SERUM 3.4 MEQ/L (3.5-5.1); SODIUM LEVEL 143 MEQ/L (136-145)
== END ==
LOC: M LAB 16:59
PROVIDERS: ATTEND Physician Assistant
DX: I10 Essential (primary) hypertension (principal)
CPT/HCPCS: 36415; 80048; 83735; 93005; G0463

== ENCOUNTER → 2016-08-30 | Outpatient (CLI) | payer MEDICARE, OTHER ==
[~2016-08-30] MED LIST changes: +ACET-654 PO; -ACET-683 PO; -ACET1TAB17 PO; +ACET500T37 PO; -ACET50TAOT PO; -AMOX875T2 PO; -AQUAOIN2 TOP; +ATOR40TA PO; -ATOR40TA75 PO; -AUGM875T28 PO; -BACITAB PO; +BACITAB3 PO; -BOOSLIQ PO; -CIPR-249 PO; +CIPR500T89 PO; -CLEO150C PO; +COLA100C3 PO; -COLA100C5 PO; -DOCU100C16 PO; -ENSULIQ10 PO; +ENSULIQ2 PO; -LASI20TA PO; +LIDO5DIS36 TD; -LIDO5DIS41 TD; -LISI10TA4 PO; -MECL1CHW2 PO; +MECL25CH PO; +METO12TA PO; -METO1TAB87 PO; -POTA10CA PO; +SENO8.6T2 PO; -SENO8.6T5 PO; +VITA100037 PO; -VITA100067 PO
--- NOTE | 2016-08-30 10:08 | REPMRS ---
Patient History The patient states she had a clinical breast exam in 05/28 Patient is postmenopausal, has history of cancer in the left breast at age 84, and is nulliparous. Family history of endometrial cancer in mother at age 50 or over. Malignant ultrasound-guided core biopsy of the left breast, September 04, 2015. Radiation therapy of the left breast, 2016. Taking tamoxifen for 1 year. Digital Woman Screen Mammo: August 30, 2016 - Exam #: [id number] Bilateral MLO and CC view(s) were taken. XCCL view(s) were taken of the left breast. Technologist: Jayla Jacobo, Technologist Prior study comparison: August 27, 2015, left breast digital mammo diagnostic unilateral, performed at [facility]. August 21, 2015, digital woman screen mammo performed at [facility]. FINDINGS: There are scattered fibroglandular densities. There is no evidence of cancer on this mammogram. Post surgical and radiation changes are seen on the left. ASSESSMENT: BI-RADS/ACR category 2 mammogram. Benign finding(s). Recommendation Routine screening mammogram of both breasts in 1 year (for women over age 40). This mammogram was interpreted with the aid of an FDA-approved computer-aided dectection system. Electronically Signed By: Sammy Wong MD 08/30/16 1007
== END ==
LOC: M WHC 08:18
PROVIDERS: ATTEND Obstetrics & Gynecology
DX: Z12.31 Encounter for screening mammogram for malignant neoplasm of breast (principal); Z78.0 Asymptomatic menopausal state; R92.8 Other abnormal and inconclusive findings on diagnostic imaging of breast

== ENCOUNTER → 2016-09-28 | Outpatient (REF) | payer MEDICARE, OTHER ==
[~2016-09-28] MED LIST changes: -ACET-654 PO; +ACET-683 PO; +ACET1TAB17 PO; -ACET500T37 PO; +ACET50TAOT PO; +AMOX875T2 PO; +AQUAOIN2 TOP; -ATOR40TA PO; +ATOR40TA75 PO; +AUGM875T28 PO; +BACITAB PO; -BACITAB3 PO; +BOOSLIQ PO; +CIPR-249 PO; -CIPR500T89 PO; +CLEO150C PO; -COLA100C3 PO; +COLA100C5 PO; +DOCU100C16 PO; +ENSULIQ10 PO; -ENSULIQ2 PO; +LASI20TA PO; -LIDO5DIS36 TD; +LIDO5DIS41 TD; +LISI10TA4 PO; +MECL1CHW2 PO; -MECL25CH PO; -METO12TA PO; +METO1TAB87 PO; +POTA10CA PO; -SENO8.6T2 PO; +SENO8.6T5 PO; -VITA100037 PO; +VITA100067 PO
[2016-09-28 11:41] LABS: MEAN CORPUSCULAR HEMOGLOBIN 30.1 pg (27.0-33.0); MEAN CORPUSCULAR HGB CONC 32.9 g/dl (32.0-36.5); MEAN CORPUSCULAR VOLUME 91.5 fl (80.0-96.0); RED CELL DISTRIBUTION WIDTH 13.3 % (11.5-14.5); WHITE BLOOD COUNT 5.4 K/mm3 (4.0-10.0)
[2016-09-28 12:15] LABS: ALBUMIN 3.7 GM/DL (3.2-5.2); ALBUMIN/GLOBULIN RATIO 1.09 (1.00-1.93); BILIRUBIN,TOTAL 0.8 MG/DL (0.2-1.0); CALCIUM LEVEL 9.9 MG/DL (8.8-10.2); GLOMERULAR FILTRATION RATE 55.8 (>32); POTASSIUM SERUM 3.6 MEQ/L (3.5-5.1); TOTAL PROTEIN 7.1 GM/DL (6.4-8.2)
== END ==
LOC: M SFHCPLAZ 08:10
PROVIDERS: ATTEND Family Medicine
DX: I25.10 Atherosclerotic heart disease of native coronary artery without angina pectoris (principal); E78.2 Mixed hyperlipidemia; E55.9 Vitamin D deficiency, unspecified

== ENCOUNTER 2016-11-30 15:07 | Emergency (ER) | payer MEDICARE, OTHER ==
[~2016-11-30] VITALS: Ht 157.5 cm; Wt 98.6 kg
[~2016-11-30 15:07] MED LIST changes: -ACET50TAOT PO; -AMOX875T2 PO; -AQUAOIN2 TOP; -AUGM875T28 PO; -BOOSLIQ PO; -CLEO150C PO; -DOCU100C16 PO; -LASI20TA PO; -LISI10TA4 PO; -POTA10CA PO
[2016-11-30 17:10] LABS: BASO % 0.7 % (0.0-1.0); EOS % 0.9 % (0.0-3.0); LARGE UNSTAINED CELL # 0.1 K/mm3 (0.0-0.4); LARGE UNSTAINED CELL % 2.4 % (0.0-4.0); LYMPH # 1.1 K/mm3 (1.5-4.5); LYMPH % 21.7 % (24.0-44.0); MEAN CORPUSCULAR HEMOGLOBIN 30.5 pg (27.0-33.0); MEAN CORPUSCULAR HGB CONC 33.7 g/dl (32.0-36.5); MEAN CORPUSCULAR VOLUME 90.7 fl (80.0-96.0); MONO # 0.4 K/mm3 (0.0-0.8); MONO % 7.3 % (0.0-5.0); NEUTROPHILS # 3.3 K/mm3 (1.8-7.7); NEUTROPHILS % 67.1 % (36.0-66.0); PLATELET COUNT, AUTOMATED 159 k/mm3 (150-450); RED CELL DISTRIBUTION WIDTH 13.5 % (11.5-14.5)
[2016-11-30 17:33] LABS: ALBUMIN 3.7 GM/DL (3.2-5.2); ALBUMIN/GLOBULIN RATIO 0.97 (1.00-1.93); BILIRUBIN,TOTAL 0.6 MG/DL (0.2-1.0); CALCIUM LEVEL 9.1 MG/DL (8.8-10.2); CREATININE FOR GFR 0.99 MG/DL (0.55-1.02); GLOMERULAR FILTRATION RATE 56.5 (>32); POTASSIUM SERUM 3.7 MEQ/L (3.5-5.1); TOTAL PROTEIN 7.5 GM/DL (6.4-8.2)
[2016-11-30] MEDS ORDERED: AUGM875T28 PO (17:56)
[2016-11-30 18:06] VITALS: BP 183/99
== END 2016-11-30 18:07 | disposition home or self-care (01) ==
LOC: M ED 15:07
DX: K57.90 Diverticulosis of intestine, part unspecified, without perforation or abscess without bleeding (principal); T36.8X1A Poisoning by other systemic antibiotics, accidental (unintentional), initial encounter; Y92.9 Unspecified place or not applicable; Y93.9 Activity, unspecified; I10 Essential (primary) hypertension; Z79.82 Long term (current) use of aspirin; Z79.899 Other long term (current) drug therapy; Z88.2 Allergy status to sulfonamides; Z88.1 Allergy status to other antibiotic agents; Z88.8 Allergy status to other drugs, medicaments and biological substances
CPT/HCPCS: 80053; 81001; 85025; 87086; 99282; G0463

== ENCOUNTER 2016-12-03 06:53 | Emergency (ER) | payer MEDICARE, OTHER ==
[~2016-12-03 06:53] MED LIST changes: +AUGM875T28 PO
[2016-12-03] MEDS ORDERED: ONDANSETRON 4MG/2ML VIAL (J2405) IV ONE (08:00)
[2016-12-03] MEDS ORDERED: MORPHINE 4 MG/ML 1ML SYRINGE IV ONE (08:00)
[2016-12-03] MEDS ORDERED: NS 500 ML IV ONE (08:00)
[2016-12-03 08:34] LABS: BASO % 0.4 % (0.0-1.0); EOS % 1.1 % (0.0-3.0); LARGE UNSTAINED CELL # 0.1 K/mm3 (0.0-0.4); LYMPH # 0.9 K/mm3 (1.5-4.5); LYMPH % 18.1 % (24.0-44.0); MEAN CORPUSCULAR HEMOGLOBIN 31.1 pg (27.0-33.0); MEAN CORPUSCULAR HGB CONC 34.3 g/dl (32.0-36.5); MEAN CORPUSCULAR VOLUME 90.8 fl (80.0-96.0); MONO # 0.4 K/mm3 (0.0-0.8); MONO % 8.2 % (0.0-5.0); NEUTROPHILS # 3.4 K/mm3 (1.8-7.7); NEUTROPHILS % 69.2 % (36.0-66.0); PLATELET COUNT, AUTOMATED 149 k/mm3 (150-450); RED CELL DISTRIBUTION WIDTH 13.2 % (11.5-14.5); WHITE BLOOD COUNT 4.8 K/mm3 (4.0-10.0)
[2016-12-03] MEDS ORDERED: diphenhydrAMINE INJ 50MG/ML VIAL (J1200) IV ONE (09:00)
[2016-12-03 09:53] LABS: ALBUMIN 3.6 GM/DL (3.2-5.2); ALBUMIN/GLOBULIN RATIO 1.06 (1.00-1.93); ALKALINE PHOSPHATASE 29 U/L (45-117); ALT/SGPT 21 U/L (12-78); AMYLASE 56 U/L (25-115); ANION GAP 8 MEQ/L (8-16); AST/SGOT 26 U/L (15-37); BILIRUBIN,DIRECT 0.2 MG/DL (0.0-0.2); BILIRUBIN,TOTAL 0.8 MG/DL (0.2-1.0); BLOOD UREA NITROGEN 19 MG/DL (7-18); CALCIUM LEVEL 8.4 MG/DL (8.8-10.2); CARBON DIOXIDE LEVEL 27 MEQ/L (21-32); CHLORIDE LEVEL 109 MEQ/L (98-107); CREATININE FOR GFR 0.87 MG/DL (0.55-1.02); GLOMERULAR FILTRATION RATE > 60.0 (>32); GLUCOSE, FASTING 90 MG/DL (83-110); POTASSIUM SERUM 3.7 MEQ/L (3.5-5.1); SODIUM LEVEL 144 MEQ/L (136-145)
[2016-12-03] MEDS ORDERED: ISOVUE-370 76% 100ML VIAL (Q9967) As Ordered ONE (10:00)
--- NOTE | 2016-12-03 10:54 | REP ---
CT ABDOMEN AND PELVIS WITH IV CONTRAST: TECHNIQUE: Axial contrast enhanced images from the lung bases to the pubic symphysis using 100 mL Isovue 370 intravenous contrast material with multiplanar reformations. Comparison 07/26/2016. Visualized lung bases demonstrate mild interstitial fibrotic change. The liver again demonstrates a benign hemangioma superiorly. Spleen, adrenals, and pancreas appear unremarkable. Patient has had a cholecystectomy. Prominent common bile duct is again noted unchanged. There is a large left renal cyst unchanged. There is no hydronephrosis bilaterally. There is abdominal aortic aneurysm. There is no adenopathy. There is no free air. Extensive sigmoid diverticulosis is noted with questionable thickening of a segment of the sigmoid deep in the pelvis, with minor adjacent free fluid. Metallic internal fixation is seen in both hips limiting evaluation of pelvic structures, but no other definite pelvic abnormality is seen. There are degenerative changes of the spine. IMPRESSION: Question minor diverticulitis deep in the pelvis. There is very mild free fluid in the pelvis. No other acute abnormality is seen. Signed by Sammy Wong MD 12/03/2016 02:23 P
[2016-12-03 11:27] VITALS: BP 179/84
== END 2016-12-03 11:29 | disposition home or self-care (01) ==
LOC: M ED 06:53
DX: K57.30 Diverticulosis of large intestine without perforation or abscess without bleeding (principal); E86.0 Dehydration; R10.32 Left lower quadrant pain; I10 Essential (primary) hypertension; Z85.3 Personal history of malignant neoplasm of breast; Z79.82 Long term (current) use of aspirin; Z79.899 Other long term (current) drug therapy; Z88.1 Allergy status to other antibiotic agents; Z88.2 Allergy status to sulfonamides; Z88.8 Allergy status to other drugs, medicaments and biological substances
CPT/HCPCS: 36415; 74177; 80048; 80076; 81001; 82150; 83690; 85025; 96361; 96374; 96375; 99283; J1200; J2405; Q9967

== ENCOUNTER → 2016-12-08 | Outpatient (CLI) | payer MEDICARE, OTHER ==
[~2016-12-08] MED LIST changes: +ACET50TAOT PO; +AMOX875T2 PO; +AQUAOIN2 TOP; +BOOSLIQ PO; +CLEO150C PO; +DOCU100C16 PO; +LASI20TA PO; +LISI10TA4 PO; +POTA10CA PO
--- NOTE | 2016-12-09 10:12 | RADONC ---
RADIATION ONCOLOGY FOLLOWUP NOTE DATE: 12/08/2016 CHART NUMBER: [id number]. DIAGNOSIS: Left breast cancer. STAGE: IA, [id number]. ECOG PERFORMANCE STATUS: Zero. FOLLOWUP NOTE: Ms. 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 The patient presents today reporting that she is doing quite well with no complaints at this time related to her radiation therapy disease. She has no breast or bone pain. REVIEW OF SYSTEMS: The patient's review of systems is noncontributory. Denies nausea, vomiting, fevers, chills, night sweats, diplopia, headaches, anxiety or depression, anorexia, weight loss, visual disturbances, chest pain, urinary or bowel difficulties, bone pain, or neurological problems. PHYSICAL EXAMINATION: The patient is a well-developed, well-nourished, 86-year-old white female in no acute distress. HEENT exam is normocephalic, atraumatic. Extraocular movements are intact. There is no palpable cervical, supraclavicular, infraclavicular, axillary, or inguinal lymphadenopathy present. Lungs are clear to auscultation and percussion. Heart has a regular rate and rhythm. Abdomen is benign with no hepatosplenomegaly, masses, or tenderness. Breast examination reveals no masses or discharge bilaterally. Skeletal examination reveals no tenderness to pressure or percussion of the bony skeleton. Extremities reveal no clubbing, cyanosis, or edema. Neurologic exam is grossly intact, as is the remainder of the physical examination. ASSESSMENT: The patient is clinically CHARLES at this time and will be seen by me again in 1 year for further followup. She will also continue be followed by her other physicians as well. cc: José Antonio Rodriguez MD
== END ==
LOC: M ONCR 13:03
PROVIDERS: ATTEND Radiology Radiation Oncology
DX: C50.412 Malignant neoplasm of upper-outer quadrant of left female breast (principal); K57.92 Diverticulitis of intestine, part unspecified, without perforation or abscess without bleeding; I10 Essential (primary) hypertension; I25.10 Atherosclerotic heart disease of native coronary artery without angina pectoris
CPT/HCPCS: G0463 ×2

== ENCOUNTER 2016-12-15 16:18 | Inpatient (IN) | payer MEDICARE, OTHER ==
[~2016-12-15] VITALS: Ht 157.5 cm; Wt 64.9 kg
[~2016-12-15 16:18] MED LIST changes: -ACET50TAOT PO; -AMOX875T2 PO; -AQUAOIN2 TOP; -BOOSLIQ PO; -CLEO150C PO; -DOCU100C16 PO; -LASI20TA PO; -LISI10TA4 PO; -POTA10CA PO
[2016-12-15] MEDS ORDERED: ACETAMINOPHEN TAB 650MG DOSE (2X325MG) PO PRN (16:30)
[2016-12-15 18:00] VITALS: BP 150/85
[2016-12-15] MEDS: NS 1,000 ML IV SCH (18:32)
[2016-12-15 18:43] LABS: ANION GAP 7 MEQ/L (8-16); AST/SGOT 41 U/L (15-37); BLOOD UREA NITROGEN 19 MG/DL (7-18); CALCIUM LEVEL 9.5 MG/DL (8.8-10.2); CARBON DIOXIDE LEVEL 31 MEQ/L (21-32); CHLORIDE LEVEL 103 MEQ/L (98-107); CREATININE FOR GFR 0.91 MG/DL (0.55-1.02); GLOMERULAR FILTRATION RATE > 60.0 (>32); GLUCOSE, FASTING 91 MG/DL (83-110); POTASSIUM SERUM 3.9 MEQ/L (3.5-5.1); SODIUM LEVEL 141 MEQ/L (136-145)
[2016-12-15 18:44] LABS: ALBUMIN 3.8 GM/DL (3.2-5.2); ALBUMIN/GLOBULIN RATIO 1.19 (1.00-1.93); ALKALINE PHOSPHATASE 33 U/L (45-117); ALT/SGPT 27 U/L (12-78); BILIRUBIN,TOTAL 0.5 MG/DL (0.2-1.0)
[2016-12-15 18:46] LABS: BASO % 0.4 % (0.0-1.0); EOS % 0.3 % (0.0-3.0); IMMATURE GRANULOCYTE % 0.1 % (0-0); LYMPH # 1.6 10^3/uL (1.5-4.5); LYMPH % 20.5 % (24.0-44.0); MEAN CORPUSCULAR HEMOGLOBIN 30.4 pg (27.0-33.0); MEAN CORPUSCULAR HGB CONC 33.3 g/dl (32.0-36.5); MEAN CORPUSCULAR VOLUME 91.2 fl (80.0-96.0); MONO # 0.8 10^3/uL (0.0-0.8); NEUTROPHILS # 5.5 10^3/uL (1.8-7.7); NEUTROPHILS % 68.7 % (36.0-66.0); PLATELET COUNT, AUTOMATED 145 10^3/uL (150-450); RED CELL DISTRIBUTION WIDTH 13.6 % (11.5-14.5); WHITE BLOOD COUNT 7.9 10^3/uL (4.0-10.0)
[2016-12-15 18:59] LABS: ADD MORPHOLOGY? NO
[2016-12-15] MEDS ORDERED: ACET1TAB17 PO (18:59)
[2016-12-15] MEDS ORDERED: DOCU100C16 PO (19:03)
[2016-12-15] MEDS ORDERED: BOOSLIQ PO (19:03)
[2016-12-15] MEDS ORDERED: AQUAOIN2 TOP (19:05)
[2016-12-15] MEDS: metroNIDAZOLE 500 MG in APPROPRIATE DILUENT 1 EA IV SCH (20:41)
[2016-12-15] MEDS: ATORVASTATIN 20 MG TAB PO SCH (20:42)
[2016-12-15] MEDS: HEPARIN SOD (PORCINE) 5000 UNITS/ML VIAL SC SCH (20:42)
[2016-12-15] MEDS: METOPROLOL TART 25 MG TABLET PO SCH (20:43)
[2016-12-15] MEDS ORDERED: oxyBUTYnin 5 MG TAB PO SCH (21:00)
[2016-12-15 22:00] VITALS: BP_SYST 151; BP_SYST 155; BP_DIAS 76; BP_DIAS 81
[2016-12-15] MEDS: ERTAPENEM SODIUM 1 GM in NS MINI-BAG PLUS 50 ML IV SCH (22:13)
[2016-12-16] MEDS: metroNIDAZOLE 500 MG in APPROPRIATE DILUENT 1 EA IV SCH ×3 (03:55→20:03)
[2016-12-16] MEDS: HEPARIN SOD (PORCINE) 5000 UNITS/ML VIAL SC SCH ×3 (05:09→21:53)
[2016-12-16 06:00] VITALS: BP 141/64
[2016-12-16] MEDS: PANTOPRAZOLE 40MG TAB (PROTONIX) PO SCH (08:54)
[2016-12-16] MEDS: TAMOXIFEN CITRATE 10 MG TAB PO SCH (08:54)
[2016-12-16] MEDS: METOPROLOL TART 25 MG TABLET PO SCH ×2 (08:54→20:09)
[2016-12-16] MEDS: ASPIRIN 81 MG ENTERIC TAB PO SCH (08:55)
[2016-12-16] MEDS: OXYBUTYNIN TD SCH (08:57)
[2016-12-16 09:47] LABS: BASO % 0.8 % (0.0-1.0); EOS # 0.1 10^3/uL (0.0-0.50); IMMATURE GRANULOCYTE % 0.4 % (0-0); LYMPH # 1.3 10^3/uL (1.5-4.5); LYMPH % 26.6 % (24.0-44.0); MEAN CORPUSCULAR HEMOGLOBIN 30.2 pg (27.0-33.0); MEAN CORPUSCULAR HGB CONC 32.5 g/dl (32.0-36.5); MEAN CORPUSCULAR VOLUME 92.9 fl (80.0-96.0); MONO # 0.6 10^3/uL (0.0-0.8); MONO % 11.7 % (0.0-5.0); NEUTROPHILS % 59.5 % (36.0-66.0); PLATELET COUNT, AUTOMATED 135 10^3/uL (150-450); RED CELL DISTRIBUTION WIDTH 13.7 % (11.5-14.5)
[2016-12-16 10:25] LABS: ALBUMIN 2.9 GM/DL (3.2-5.2); ALBUMIN/GLOBULIN RATIO 1.12 (1.00-1.93); ALKALINE PHOSPHATASE 25 U/L (45-117); ALT/SGPT 19 U/L (12-78); ANION GAP 9 MEQ/L (8-16); AST/SGOT 30 U/L (15-37); BILIRUBIN,TOTAL 0.4 MG/DL (0.2-1.0); BLOOD UREA NITROGEN 13 MG/DL (7-18); CALCIUM LEVEL 8.2 MG/DL (8.8-10.2); CARBON DIOXIDE LEVEL 27 MEQ/L (21-32); CHLORIDE LEVEL 107 MEQ/L (98-107); CREATININE FOR GFR 0.89 MG/DL (0.55-1.02); GLOMERULAR FILTRATION RATE > 60.0 (>32); GLUCOSE, FASTING 134 MG/DL (83-110); POTASSIUM SERUM 3.6 MEQ/L (3.5-5.1); SODIUM LEVEL 143 MEQ/L (136-145); TOTAL PROTEIN 5.5 GM/DL (6.4-8.2)
--- NOTE | 2016-12-16 12:20 | IPNPDOC ---
Subjective Date Seen The patient was seen on 12/16/16. Subjective Chief Complaint/HPI The patient is a 86-year-old female admitted with a reason for visit of Diverticulitis. Events since last encounter Pt still with some abd pain and nausea but she feels it is better than yesterday. Denies CP, SOB. Constitutional: Denies: Chills, Fever Pulmonary: Denies: Dyspnea Cardiovascular: Denies: Chest Pain Objective Physical Examination General Exam: Positive: Alert, No Acute Distress Neck Exam: Positive: Supple, Negative: JVD Chest Exam: Positive: Clear to auscultation Heart Exam: Positive: Rate Normal, Regular Rhythm Abdomen Exam: Positive: Normal bowel sounds, Soft, Tenderness Extremity Exam: Negative: Edema Assessment /Plan Problems (1) Diverticulitis Status: Acute Problem Specific Plan: Monitor Clinically, Repeat Labs Problem Text: 12/16 - Pt failed outpt treatment. Many abx allergies/ intolerances. Started on IV Ertapenem and IV Flagyl. WBC 5.0. Afebrile. CT Abd/pel pending. (2) HTN (hypertension) Status: Chronic Problem Specific Plan: Monitor Clinically Problem Text: On Lopressor with hold parameters. (3) CAD (coronary artery disease) Status: Chronic Problem Specific Plan: Monitor Clinically Problem Text: On Aspirin and Lipitor. Plan/VTE VTE Prophylaxis Ordered?: Yes (Heparin) VS, I&O, 24H, Fishbone Vital Signs/I&O Vital Signs Date Time Temp Pulse Resp B/P (MAP) Pulse Ox O2 Delivery O2 Flow Rate FiO2 12/16/16 06:00 97.9 68 16 141/64 (89) 96 Room Air I&O- Last 24 Hours up to 6 AM 12/17/16 06:00 Intake Total 1325 ml Output Total 300 ml Balance 1025 ml Laboratory Data 24H LABS Laboratory Tests 2 12/15/16 18:02: Immature Granulocyte % (Auto) 0.1H, White Blood Count 7.9, Red Blood Count 4.08 , Hemoglobin 12.4, Hematocrit 37.2, Mean Corpuscular Volume 91.2, Mean Corpuscular Hemoglobin 30.4, Mean Corpuscular Hemoglobin Concent 33.3, Red Cell Distribution Width 13.6, Platelet Count 145L, Neutrophils (%) (Auto) 68.7H, Lymphocytes (%) (Auto) 20.5L, Monocytes (%) (Auto) 10.0H, Eosinophils (%) (Auto ) 0.3, Basophils (%) (Auto) 0.4, Neutrophils # (Auto) 5.5, Lymphocytes # (Auto) 1.6, Monocytes # (Auto) 0.8, Eosinophils # (Auto) 0.0, Basophils # (Auto) 0.0, Immature Granulocyte # (Auto) 0.0, Nucleated Red Blood Cells % (auto) 0.0, Anion Gap 7L, Glomerular Filtration Rate > 60.0, Blood Urea Nitrogen 19H, Creatinine 0.91, Sodium Level 141, Potassium Level 3.9, Chloride Level 103, Carbon Dioxide Level 31, Calcium Level 9.5, Aspartate Amino Transf (AST/SGOT) 41H, Alanine Aminotransferase (ALT/SGPT) 27, Alkaline Phosphatase 33L, Total Bilirubin 0.5, Total Protein 7.0, Albumin 3.8, Albumin/Globulin Ratio 1.19 12/15/16 18:30: Urine Appearance CLEAR, Urine Color YELLOW, Urine pH 6.0, Urine Specific [place] 1.005, Urine Protein NEGATIVE, Urine Glucose (UA) NEGATIVE, Urine Ketones NEGATIVE, Urine Urobilinogen 0.2, Urine Bilirubin NEGATIVE, Urine Leukocyte Esterase NEGATIVE, Urine Blood NEGATIVE, Urine Nitrite NEGATIVE, Urine WBC (Auto) 1, Urine RBC (Auto) 2, Urine Hyaline Casts (Auto) 0, Urine Bacteria (Auto) NEGATIVE, Urine Squamous Epithelial Cells 0, Urine Sperm (Auto) 12/16/16 09:35: Immature Granulocyte % (Auto) 0.4H, White Blood Count 5.0, Red Blood Count 3.94L , Hemoglobin 11.9L, Hematocrit 36.6, Mean Corpuscular Volume 92.9, Mean Corpuscular Hemoglobin 30.2, Mean Corpuscular Hemoglobin Concent 32.5, Red Cell Distribution Width 13.7, Platelet Count 135L, Neutrophils (%) (Auto) 59.5, Lymphocytes (%) (Auto) 26.6, Monocytes (%) (Auto) 11.7H, Eosinophils (%) (Auto) 1.0, Basophils (%) (Auto) 0.8, Neutrophils # (Auto) 3.0, Lymphocytes # (Auto) 1.3L, Monocytes # (Auto) 0.6, Eosinophils # (Auto) 0.1, Basophils # (Auto) 0.0, Immature Granulocyte # (Auto) 0.0, Nucleated Red Blood Cells % (auto) 0.0, Anion Gap 9, Glomerular Filtration Rate > 60.0, Blood Urea Nitrogen 13, Creatinine 0.89, Sodium Level 143, Potassium Level 3.6, Chloride Level 107, Carbon Dioxide Level 27, Calcium Level 8.2L, Aspartate Amino Transf (AST/SGOT) 30, Alanine Aminotransferase (ALT/SGPT) 19, Alkaline Phosphatase 25L, Total Bilirubin 0.4, Total Protein 5.5#L, Albumin 2.9#L, Albumin/Globulin Ratio 1.12 CBC/BMP Laboratory Tests 12/15/16 18:02 Red Blood Count 4.08, Mean Corpuscular Volume 91.2, Mean Corpuscular Hemoglobin 30.4, Mean Corpuscular Hemoglobin Concent 33.3, Red Cell Distribution Width 13.6 , Neutrophils (%) (Auto) 68.7 H, Lymphocytes (%) (Auto) 20.5 L, Monocytes (%) ( Auto) 10.0 H, Eosinophils (%) (Auto) 0.3, Basophils (%) (Auto) 0.4, Neutrophils # (Auto) 5.5, Lymphocytes # (Auto) 1.6, Monocytes # (Auto) 0.8, Eosinophils # ( Auto) 0.0, Basophils # (Auto) 0.0, Calcium Level 9.5, Aspartate Amino Transf ( AST/SGOT) 41 H, Alanine Aminotransferase (ALT/SGPT) 27, Alkaline Phosphatase 33 L, Total Bilirubin 0.5, Total Protein 7.0, Albumin 3.8 12/16/16 09:35 Red Blood Count 3.94 L, Mean Corpuscular Volume 92.9, Mean Corpuscular Hemoglobin 30.2, Mean Corpuscular Hemoglobin Concent 32.5, Red Cell Distribution Width 13.7, Neutrophils (%) (Auto) 59.5, Lymphocytes (%) (Auto) 26.6, Monocytes (%) (Auto) 11.7 H, Eosinophils (%) (Auto) 1.0, Basophils (%) ( Auto) 0.8, Neutrophils # (Auto) 3.0, Lymphocytes # (Auto) 1.3 L, Monocytes # ( Auto) 0.6, Eosinophils # (Auto) 0.1, Basophils # (Auto) 0.0, Calcium Level 8.2 L , Aspartate Amino Transf (AST/SGOT) 30, Alanine Aminotransferase (ALT/SGPT) 19, Alkaline Phosphatase 25 L, Total Bilirubin 0.4, Total Protein 5.5 #L, Albumin 2.9 #L Microbiology Microbiology 12/15/16 Urine Culture - Final, Complete Cesar Wang Dec 16, 2016 12:20
[2016-12-16] MEDS: NS 1,000 ML IV SCH (12:28)
[2016-12-16 14:00] VITALS: BP 127/60
[2016-12-16] MEDS: ATORVASTATIN 20 MG TAB PO SCH (20:03)
[2016-12-16 20:16] VITALS: BP 142/88
--- NOTE | 2016-12-16 20:20 | REPUSA ---
CT of the abdomen and pelvis without contrast Clinical statement: Pain. Technique: Multiple axial CT images were obtained from the base of the lungs to the floor of the pelv is utilizing 5 mm axial slices without administration of contrast. Coronal and sagittal reconstructio ns were also obtained. Comparison: 12/03/2016. Findings: Chest: The visualized lung bases are clear. Abdomen: The kidneys are normal in size bilaterally. The large simple cyst extending from the left ki dney into the left lower quadrant is stable. There is no evidence of hydronephrosis or nephrolithiasi s. The liver, spleen, pancreas, and adrenal glands are unremarkable. The aorta demonstrates normal ca liber and contour. There is no abdominal lymphadenopathy or ascites. Pelvis: The bowel is unremarkable, with no obstructive or inflammatory changes. There is extensive si gmoid diverticulosis, without evidence of diverticulitis. Moderate amount of stool fills the colon. T he urinary bladder is within normal limits. There is no pelvic lymphadenopathy or ascites. The other pelvic structures appear unremarkable. Bones: There are no suspicious osseous abnormalities seen. Left hip internal fixation is intact. Righ t hip arthroplasty is unremarkable. Multilevel degenerative disc disease is noted throughout the lumb ar spine, most severe at L4/L5 and L5/S1. There is a 7 mm anterior spondylolisthesis of L4 upon L5. Impression: 1. No evidence of hydronephrosis or nephrolithiasis. Large simple left renal cyst extending into the left pelvis is unchanged. 2. Moderate constipation. Diffuse sigmoid diverticulosis. No obstructive or inflammatory bowel change s. 3. Moderate diffuse stable spondylosis of the lumbar spine. Grade 2 anterior spondylolisthesis of L4 upon L5.
[2016-12-16] MEDS: ERTAPENEM SODIUM 1 GM in NS MINI-BAG PLUS 50 ML IV SCH (21:53)
[2016-12-17] MEDS: NS 1,000 ML IV SCH ×3 (03:13→21:34)
[2016-12-17] MEDS: metroNIDAZOLE 500 MG in APPROPRIATE DILUENT 1 EA IV SCH ×3 (03:13→19:54)
[2016-12-17] MEDS: HEPARIN SOD (PORCINE) 5000 UNITS/ML VIAL SC SCH ×3 (05:14→21:34)
[2016-12-17 05:43] VITALS: BP 146/74
[2016-12-17 06:00] VITALS: BP 178/88
[2016-12-17 06:32] LABS: BASO % 0.6 % (0.0-1.0); EOS # 0.1 10^3/uL (0.0-0.50); EOS % 1.9 % (0.0-3.0); IMMATURE GRANULOCYTE % 0.2 % (0-0); LYMPH # 1.3 10^3/uL (1.5-4.5); LYMPH % 26.4 % (24.0-44.0); MEAN CORPUSCULAR HEMOGLOBIN 30.3 pg (27.0-33.0); MEAN CORPUSCULAR HGB CONC 32.9 g/dl (32.0-36.5); MONO # 0.6 10^3/uL (0.0-0.8); MONO % 12.1 % (0.0-5.0); NEUTROPHILS # 2.8 10^3/uL (1.8-7.7); NEUTROPHILS % 58.8 % (36.0-66.0); PLATELET COUNT, AUTOMATED 128 10^3/uL (150-450); RED CELL DISTRIBUTION WIDTH 13.8 % (11.5-14.5); WHITE BLOOD COUNT 4.7 10^3/uL (4.0-10.0)
[2016-12-17 07:07] LABS: ALBUMIN 2.6 GM/DL (3.2-5.2); ALKALINE PHOSPHATASE 22 U/L (45-117); ALT/SGPT 20 U/L (12-78); ANION GAP 7 MEQ/L (8-16); AST/SGOT 23 U/L (15-37); BILIRUBIN,TOTAL 0.4 MG/DL (0.2-1.0); BLOOD UREA NITROGEN 10 MG/DL (7-18); CALCIUM LEVEL 7.6 MG/DL (8.8-10.2); CARBON DIOXIDE LEVEL 26 MEQ/L (21-32); CHLORIDE LEVEL 110 MEQ/L (98-107); CREATININE FOR GFR 0.63 MG/DL (0.55-1.02); GLOMERULAR FILTRATION RATE > 60.0 (>32); GLUCOSE, FASTING 86 MG/DL (83-110); POTASSIUM SERUM 3.5 MEQ/L (3.5-5.1); SODIUM LEVEL 143 MEQ/L (136-145); TOTAL PROTEIN 5.2 GM/DL (6.4-8.2)
[2016-12-17] MEDS: ONDANSETRON 4 MG TAB (S0181) PO PRN ×2 (08:02→16:59)
[2016-12-17] MEDS: ASPIRIN 81 MG ENTERIC TAB PO SCH (08:46)
[2016-12-17] MEDS: TAMOXIFEN CITRATE 10 MG TAB PO SCH (08:46)
[2016-12-17] MEDS: PANTOPRAZOLE 40MG TAB (PROTONIX) PO SCH (08:46)
[2016-12-17] MEDS: METOPROLOL TART 25 MG TABLET PO SCH ×2 (08:46→21:33)
[2016-12-17] MEDS: BUDESONIDE EC 3 MG CAP (ENTOCORT EC) PO SCH (09:00)
[2016-12-17] MEDS ORDERED: INFLUENZA VIRUS VACCINE HIGH DOSE 0.5 ML SYRINGE (90662) IM ONE (09:00)
--- NOTE | 2016-12-17 16:39 | IPN ---
DATE: 12/17/2016 Katarzyna is seen at [address] [place] [address]. I tried to advance her diet. She has severe nausea and vomiting this morning, so she was back on clear liquids. PHYSICAL EXAMINATION: Afebrile. Vital signs stable. Lungs clear. Heart: Regular rhythm. Abdomen: Soft. Mildly tender lower abdomen. No costovertebral angle (CVA) tenderness. LABS: White count 4.7, CBC is unremarkable. Electrolytes unremarkable. Calcium is borderline 3.6. PLAN: 1. Continue her ertapenem and metronidazole, advance diet tomorrow. Hopefully she will be able to go home Tuesday or Tuesday. 2. History of hypertension. Continue metoprolol. 3. Coronary artery disease. Continue her aspirin and atorvastatin. 4. History of microscopic colitis. Restart her Entocort 3 mg daily. 5. History of breast cancer. She is on tamoxifen for prophylaxis. 6. Deep venous thrombosis (DVT) prophylaxis has been ordered as the tamoxifen will increase her thromboembolic risk.
[2016-12-17] MEDS: ATORVASTATIN 20 MG TAB PO SCH (16:57)
[2016-12-17] MEDS: ERTAPENEM SODIUM 1 GM in NS MINI-BAG PLUS 50 ML IV SCH (21:33)
[2016-12-17 22:00] VITALS: BP 162/78
[2016-12-18] MEDS: metroNIDAZOLE 500 MG in APPROPRIATE DILUENT 1 EA IV SCH ×2 (03:47→13:00)
[2016-12-18] MEDS: HEPARIN SOD (PORCINE) 5000 UNITS/ML VIAL SC SCH ×3 (05:39→21:05)
[2016-12-18 06:00] VITALS: BP 130/81
[2016-12-18] MEDS: TAMOXIFEN CITRATE 10 MG TAB PO SCH (09:18)
[2016-12-18] MEDS: BUDESONIDE EC 3 MG CAP (ENTOCORT EC) PO SCH (09:19)
[2016-12-18] MEDS: PANTOPRAZOLE 40MG TAB (PROTONIX) PO SCH (09:19)
[2016-12-18] MEDS: ASPIRIN 81 MG ENTERIC TAB PO SCH (09:19)
[2016-12-18] MEDS: METOPROLOL TART 25 MG TABLET PO SCH ×2 (09:20→21:05)
[2016-12-18] MEDS: NS 1,000 ML IV SCH (10:59)
[2016-12-18 14:00] VITALS: BP 141/60
--- NOTE | 2016-12-18 16:38 | IPNPDOC ---
Subjective Date Seen The patient was seen on 12/18/16. Subjective Chief Complaint/HPI The patient is a 86-year-old female admitted with a reason for visit of Diverticulitis. Events since last encounter Patient states that she feels much better today. She says she has no belly pain and is able to tolerate a regular diet now. She is willing to switch to oral antibiotics in preparation for a possible discharge home tomorrow or Tuesday. Constitutional: Denies: Chills, Fever Skin: Denies: Rash, Lesions Pulmonary: Denies: Cough Cardiovascular: Denies: Chest Pain Gastrointestinal: Denies: Nausea, Vomiting, Abdominal Pain, Diarrhea, Constipation Objective Physical Examination General Exam: Positive: Alert, No Acute Distress Chest Exam: Positive: Clear to auscultation Heart Exam: Positive: Rate Normal, Regular Rhythm Abdomen Exam: Positive: Normal bowel sounds, Soft, Tenderness (slight tenderness to palpation along RUQ and LUQ, dullness to percussion noted in RUQ LLQ and RLQ.) Psych Exam: Positive: Mental status NL Assessment /Plan Problems (1) Diverticulitis Status: Acute Response to Treatment: Improving Problem Specific Plan: Monitor Clinically, Repeat Labs Problem Text: Patient states that she feels much better today. She denies belly pain, nausea, vomiting, diarrhea or constipation. She is now able to tolerate a regular diet. I have ordered a probiotic to be taken 30 minutes before her oral antibiotic as we are switching her to oral Clindamycin and Augmentin. Hopefully she will be able to be discharged tomorrow or Tuesday. (2) HTN (hypertension) Status: Chronic Problem Specific Plan: Monitor Clinically Problem Text: On Lopressor with hold parameters. (3) CAD (coronary artery disease) Status: Chronic Problem Specific Plan: Monitor Clinically Problem Text: On Aspirin and Lipitor. Plan/VTE VTE Prophylaxis Ordered?: Yes (Heparin) Plan Family Medicine Attending Note: I was present on site to supervise Renate Villasenor DO (PGY-1). We discussed the history and exam. I confirmed the langley elements during my [id number] encounter with the patient. We conferred on the assessment and plan; I agree with the note as documented. Mrs. Serrano seems to be doing quite well. We changed her to oral antibiotics in anticipation of a discharge tomorrow. I do note that she's had quite a few diverticulitis flares over the years and wonder whether she should receive a surgical consultation to consider resection of diseased bowel. I'll defer this to her out-patient care team. 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
[2016-12-18] MEDS: AUGMENTIN 875 MG TAB PO SCH (16:59)
[2016-12-18] MEDS: CLINDAMYCIN 150 MG CAP PO SCH ×2 (16:59→21:04)
[2016-12-18] MEDS: ATORVASTATIN 20 MG TAB PO SCH (17:00)
[2016-12-18 22:00] VITALS: BP 148/70
[2016-12-18] MEDS: LACTOBACILLUS ACIDOPHILUS CAP (BACID) PO SCH (23:04)
[2016-12-19] MEDS: NS 1,000 ML IV SCH ×3 (00:48→22:26)
[2016-12-19] MEDS: LACTOBACILLUS ACIDOPHILUS CAP (BACID) PO SCH ×2 (05:31→22:25)
[2016-12-19] MEDS: HEPARIN SOD (PORCINE) 5000 UNITS/ML VIAL SC SCH ×3 (05:31→22:26)
[2016-12-19 06:00] VITALS: BP 146/79
[2016-12-19] MEDS: TAMOXIFEN CITRATE 10 MG TAB PO SCH (09:05)
[2016-12-19] MEDS: CLINDAMYCIN 150 MG CAP PO SCH ×4 (09:06→20:47)
[2016-12-19] MEDS: PANTOPRAZOLE 40MG TAB (PROTONIX) PO SCH (09:06)
[2016-12-19] MEDS: BUDESONIDE EC 3 MG CAP (ENTOCORT EC) PO SCH (09:06)
[2016-12-19] MEDS: ASPIRIN 81 MG ENTERIC TAB PO SCH (09:07)
[2016-12-19] MEDS: AUGMENTIN 875 MG TAB PO SCH ×2 (09:07→20:47)
[2016-12-19] MEDS: METOPROLOL TART 25 MG TABLET PO SCH ×2 (09:08→20:48)
--- NOTE | 2016-12-19 12:52 | IPNPDOC ---
Subjective Date Seen The patient was seen on 12/19/16. Subjective Chief Complaint/HPI The patient is a 86-year-old female admitted with a reason for visit of Diverticulitis. Events since last encounter Patient reports that her abdomen is feeling a little bit more tender today, a little bit worse than yesterday. She states that she ate a good dinner yesterday but was having some nausea this morning. She is unsure if she wants to go home today. After seeing the patient I was later called back to reevaluate the patient by the nurse, who noticed a tremor on her left side. General: Denies: Night Sweats Constitutional: Denies: Chills, Fever Pulmonary: Denies: Dyspnea Cardiovascular: Denies: Chest Pain Gastrointestinal: Reports: Nausea, Abdominal Pain Neurological: Reports: Other Symptoms (positive tremor in left hand) Objective Physical Examination General Exam: Positive: Alert, No Acute Distress Chest Exam: Positive: Clear to auscultation, Negative: Rales, Rhonchi, Wheezing Heart Exam: Positive: Rate Normal, Regular Rhythm, Normal S1, Normal S2, Other (occasional extra beat), Negative: Gallops, Murmurs, Rubs Abdomen Exam: Positive: Normal bowel sounds, Soft, Tenderness (mild tenderness in left lower quadrant) Neuro Exam: Positive: Other (on reevaluation very mild resting tremor in left hand, tremor in bilateral hands with activity. By the end of her recheck resting tremor had resolved) Assessment /Plan Assessment 86-year-old female admitted with diverticulitis. She is slightly worse today, will require another day hospitalized to ensure she is improving, tolerating food Problems (1) Diverticulitis Status: Acute Response to Treatment: Worse Problem Specific Plan: Monitor Clinically, Repeat Labs Problem Text: 12/19: Slightly worse today, likely secondary to advancement of diet. We will keep her inpatient for another day, continue to monitor. Hopeful discharge tomorrow 12/18: Patient states that she feels much better today. She denies belly pain, nausea, vomiting, diarrhea or constipation. She is now able to tolerate a regular diet. I have ordered a probiotic to be taken 30 minutes before her oral antibiotic as we are switching her to oral Clindamycin and Augmentin. Hopefully she will be able to be discharged tomorrow or Tuesday. (2) HTN (hypertension) Status: Chronic Problem Specific Plan: Monitor Clinically Problem Text: On Lopressor with hold parameters. (3) CAD (coronary artery disease) Status: Chronic Problem Specific Plan: Monitor Clinically Problem Text: On Aspirin and Lipitor. (4) Tremor of both hands Problem Text: 12/19: Hand tremor brought to my attention today by nursing, duration of tremor is unknown. 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 Continue to monitor. Plan/VTE VTE Prophylaxis Ordered?: Yes (heparin 5000 units subcutaneously every 8 hours) Plan Diet: Continue Current Family Medicine Attending Note: I was present on site to supervise Radha Lindsay D.O. (PGY-3). We discussed the langley elements of the history and examination. I independently evaluated the patient. I agree with his note as documented above. 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
[2016-12-19 14:00] VITALS: BP 132/67
[2016-12-19] MEDS: ATORVASTATIN 20 MG TAB PO SCH (18:22)
[2016-12-19 22:00] VITALS: BP 140/67
[2016-12-20] MEDS: LACTOBACILLUS ACIDOPHILUS CAP (BACID) PO SCH (05:34)
[2016-12-20] MEDS: HEPARIN SOD (PORCINE) 5000 UNITS/ML VIAL SC SCH ×3 (05:35→22:03)
[2016-12-20 06:00] VITALS: BP 160/92
[2016-12-20 07:53] LABS: BASO % 0.4 % (0.0-1.0); EOS # 0.1 10^3/uL (0.0-0.50); EOS % 1.7 % (0.0-3.0); IMMATURE GRANULOCYTE % 0.3 % (0-0); LYMPH % 13.8 % (24.0-44.0); MEAN CORPUSCULAR HEMOGLOBIN 30.1 pg (27.0-33.0); MEAN CORPUSCULAR HGB CONC 32.7 g/dl (32.0-36.5); MEAN CORPUSCULAR VOLUME 91.9 fl (80.0-96.0); MONO # 0.7 10^3/uL (0.0-0.8); MONO % 10.2 % (0.0-5.0); NEUTROPHILS % 73.6 % (36.0-66.0); PLATELET COUNT, AUTOMATED 128 10^3/uL (150-450); RED CELL DISTRIBUTION WIDTH 13.9 % (11.5-14.5); WHITE BLOOD COUNT 6.9 10^3/uL (4.0-10.0)
[2016-12-20 07:55] LABS: ADD MANUAL DIFFER NO; DIFF SLIDE NUMBER 99
[2016-12-20 08:19] LABS: ALBUMIN 2.6 GM/DL (3.2-5.2); ALBUMIN/GLOBULIN RATIO 0.87 (1.00-1.93); ALKALINE PHOSPHATASE 27 U/L (45-117); ALT/SGPT 16 U/L (12-78); ANION GAP 6 MEQ/L (8-16); AST/SGOT 20 U/L (15-37); BILIRUBIN,TOTAL 0.5 MG/DL (0.2-1.0); BLOOD UREA NITROGEN 12 MG/DL (7-18); CALCIUM LEVEL 8.1 MG/DL (8.8-10.2); CARBON DIOXIDE LEVEL 28 MEQ/L (21-32); CHLORIDE LEVEL 110 MEQ/L (98-107); CREATININE FOR GFR 0.72 MG/DL (0.55-1.02); GLOMERULAR FILTRATION RATE > 60.0 (>32); GLUCOSE, FASTING 86 MG/DL (83-110); POTASSIUM SERUM 3.5 MEQ/L (3.5-5.1); SODIUM LEVEL 144 MEQ/L (136-145); TOTAL PROTEIN 5.6 GM/DL (6.4-8.2)
[2016-12-20] MEDS: CLINDAMYCIN 150 MG CAP PO SCH ×4 (09:58→22:02)
[2016-12-20] MEDS: ASPIRIN 81 MG ENTERIC TAB PO SCH (09:59)
[2016-12-20] MEDS: BUDESONIDE EC 3 MG CAP (ENTOCORT EC) PO SCH (09:59)
[2016-12-20] MEDS: TAMOXIFEN CITRATE 10 MG TAB PO SCH (09:59)
[2016-12-20] MEDS: METOPROLOL TART 25 MG TABLET PO SCH ×2 (10:00→22:03)
[2016-12-20] MEDS: AUGMENTIN 875 MG TAB PO SCH ×2 (10:00→22:02)
[2016-12-20] MEDS: PANTOPRAZOLE 40MG TAB (PROTONIX) PO SCH (10:00)
[2016-12-20] MEDS ORDERED: BISACODYL 5 MG TAB PO ONE (10:00)
[2016-12-20] MEDS: OXYBUTYNIN TD SCH (10:01)
[2016-12-20] MEDS: DOCUSATE SODIUM 100 MG CAP PO SCH ×2 (10:06→22:02)
--- NOTE | 2016-12-20 10:09 | IPNPDOC ---
Subjective Date Seen The patient was seen on 12/20/16. Subjective Chief Complaint/HPI The patient is a 86-year-old female admitted with a reason for visit of Diverticulitis. Events since last encounter Tolerating po well. No documented BM x 4 days. Patient takes daily stool softener at home with relief. Has not been taking that while inpatient. Constitutional: Denies: Chills, Fever, Night Sweats Gastrointestinal: Denies: Nausea, Vomiting, Abdominal Pain, Diarrhea, Constipation Genitourinary: Denies: Dysuria, Frequency, Incontinence, Retention Psych: Reports: Mood Normal, Denies: Depression, Memory Issues Objective Physical Examination General Exam: Positive: Alert, No Acute Distress Chest Exam: Positive: Clear to auscultation, Negative: Rales, Rhonchi, Wheezing Heart Exam: Positive: Rate Normal, Regular Rhythm, Normal S1, Normal S2, Negative: Gallops, Murmurs, Rubs Abdomen Exam: Positive: Normal bowel sounds, Soft, Negative: Tenderness Neuro Exam: Positive: Other (on reevaluation very mild resting tremor in left hand, tremor in bilateral hands with activity. By the end of her recheck resting tremor had resolved) Assessment /Plan Problems (1) Diverticulitis Status: Acute Response to Treatment: Worse Problem Specific Plan: Monitor Clinically, Repeat Labs Problem Text: 12/20/16: moderate constipation CT. Only 1 Bm in last 4 days. Will provide tool softeners and Dulcolax. Re-eval for potential DC after BM 12/19: Slightly worse today, likely secondary to advancement of diet. We will keep her inpatient for another day, continue to monitor. Hopeful discharge tomorrow 12/18: Patient states that she feels much better today. She denies belly pain, nausea, vomiting, diarrhea or constipation. She is now able to tolerate a regular diet. I have ordered a probiotic to be taken 30 minutes before her oral antibiotic as we are switching her to oral Clindamycin and Augmentin. Hopefully she will be able to be discharged tomorrow or Tuesday. (2) HTN (hypertension) Status: Chronic Problem Specific Plan: Monitor Clinically Problem Text: On Lopressor with hold parameters. (3) CAD (coronary artery disease) Status: Chronic Problem Specific Plan: Monitor Clinically Problem Text: On Aspirin and Lipitor. (4) Tremor of both hands Problem Text: 12/19: Hand tremor brought to my attention today by nursing, duration of tremor is unknown. 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 Continue to monitor. Plan/VTE VTE Prophylaxis Ordered?: Yes (heparin 5000 units subcutaneously every 8 hours) Plan Diet: Continue Current VS, I&O, 24H, Fishbone Vital Signs/I&O Vital Signs Date Time Temp Pulse Resp B/P (MAP) Pulse Ox O2 Delivery O2 Flow Rate FiO2 12/20/16 10:00 160/92 12/20/16 06:00 97.8 80 20 96 12/19/16 14:00 Room Air I&O- Last 24 Hours up to 6 AM 12/21/16 06:00 Intake Total 360 ml Output Total 450 ml Balance -90 ml Laboratory Data 24H LABS Laboratory Tests 2 12/20/16 07:37: Immature Granulocyte % (Auto) 0.3H, White Blood Count 6.9, Red Blood Count 3.96L , Hemoglobin 11.9L, Hematocrit 36.4, Mean Corpuscular Volume 91.9, Mean Corpuscular Hemoglobin 30.1, Mean Corpuscular Hemoglobin Concent 32.7, Red Cell Distribution Width 13.9, Platelet Count 128L, Neutrophils (%) (Auto) 73.6H, Lymphocytes (%) (Auto) 13.8L, Monocytes (%) (Auto) 10.2H, Eosinophils (%) (Auto ) 1.7, Basophils (%) (Auto) 0.4, Neutrophils # (Auto) 5.0, Lymphocytes # (Auto) 1.0L, Monocytes # (Auto) 0.7, Eosinophils # (Auto) 0.1, Basophils # (Auto) 0.0, Immature Granulocyte # (Auto) 0.0, Nucleated Red Blood Cells % (auto) 0.0, Anion Gap 6L, Glomerular Filtration Rate > 60.0, Blood Urea Nitrogen 12, Creatinine 0.72, Sodium Level 144, Potassium Level 3.5, Chloride Level 110H, Carbon Dioxide Level 28, Calcium Level 8.1L, Aspartate Amino Transf (AST/SGOT) 20, Alanine Aminotransferase (ALT/SGPT) 16, Alkaline Phosphatase 27L, Total Bilirubin 0.5, Total Protein 5.6L, Albumin 2.6L, Albumin/Globulin Ratio 0.87L CBC/BMP Laboratory Tests 12/20/16 07:37 Red Blood Count 3.96 L, Mean Corpuscular Volume 91.9, Mean Corpuscular Hemoglobin 30.1, Mean Corpuscular Hemoglobin Concent 32.7, Red Cell Distribution Width 13.9, Neutrophils (%) (Auto) 73.6 H, Lymphocytes (%) (Auto) 13.8 L, Monocytes (%) (Auto) 10.2 H, Eosinophils (%) (Auto) 1.7, Basophils (%) ( Auto) 0.4, Neutrophils # (Auto) 5.0, Lymphocytes # (Auto) 1.0 L, Monocytes # ( Auto) 0.7, Eosinophils # (Auto) 0.1, Basophils # (Auto) 0.0, Calcium Level 8.1 L , Aspartate Amino Transf (AST/SGOT) 20, Alanine Aminotransferase (ALT/SGPT) 16, Alkaline Phosphatase 27 L, Total Bilirubin 0.5, Total Protein 5.6 L, Albumin 2.6 L Microbiology Microbiology 12/15/16 Urine Culture - Final, Complete Ela RoblesP Dec 20, 2016 10:09
[2016-12-20 14:00] VITALS: BP 142/61
[2016-12-20] MEDS: NS 1,000 ML IV SCH (16:19)
[2016-12-20] MEDS: ATORVASTATIN 20 MG TAB PO SCH (16:52)
[2016-12-20] MEDS ORDERED: SENNA 8.6 MG TAB (SENOKOT) PO SCH (21:00)
[2016-12-20 22:00] VITALS: BP 136/78
[2016-12-21] MEDS: LACTOBACILLUS ACIDOPHILUS CAP (BACID) PO SCH ×2 (00:15→05:34)
[2016-12-21] MEDS: NS 1,000 ML IV SCH (05:34)
[2016-12-21] MEDS: HEPARIN SOD (PORCINE) 5000 UNITS/ML VIAL SC SCH (05:34)
[2016-12-21 06:00] VITALS: BP 145/82
[2016-12-21] MEDS ORDERED: CLEO150C PO (08:05)
[2016-12-21] MEDS ORDERED: AMOX875T2 PO (08:05)
[2016-12-21 08:47] VITALS: BP 145/82
[2016-12-21] MEDS: AUGMENTIN 875 MG TAB PO SCH (08:47)
[2016-12-21] MEDS: BUDESONIDE EC 3 MG CAP (ENTOCORT EC) PO SCH (08:47)
[2016-12-21] MEDS: METOPROLOL TART 25 MG TABLET PO SCH (08:47)
[2016-12-21] MEDS: TAMOXIFEN CITRATE 10 MG TAB PO SCH (08:48)
[2016-12-21] MEDS: ASPIRIN 81 MG ENTERIC TAB PO SCH (08:48)
[2016-12-21] MEDS: PANTOPRAZOLE 40MG TAB (PROTONIX) PO SCH (08:48)
[2016-12-21] MEDS: CLINDAMYCIN 150 MG CAP PO SCH (08:48)
--- NOTE | 2016-12-21 11:23 | DSES ---
DATE OF ADMISSION: 12/15/2016 DATE OF DISCHARGE: 12/21/2016 ATTENDING PHYSICIAN: Dr. Janice Doran PRIMARY CARE PROVIDER: Dr. José Antonio Rodriguez HISTORY OF PRESENT ILLNESS: 86-year-old female who had multiple visits, both to her outpatient primary care provider as well as the emergency department (ED) for continuing abdominal pain. She was subsequently admitted for diverticulitis with family medicine service. CT on admission demonstrated moderate diffuse sigmoid diverticulosis with moderate constipation. Patient has a significant intolerance to by mouth Flagyl and clindamycin. She was placed on intravenous (IV) ertapenem and IV Flagyl. White blood cell count remained stable throughout hospitalization. Patient remained afebrile. As of yesterday, patient had not had a bowel movement for several days. She was given stool softeners and, subsequently, experienced six bowel movements with excellent relief of her abdominal pain and bloating. The patient is tolerating a low-residue diet well. Denies any complaints today. PHYSICAL EXAM: VITAL SIGNS: Are stable. She is afebrile. White blood cell count 6000. Hemoglobin and hematocrit (H and H) 11 and 36. Platelets are 128 and remain stable and at baseline. Electrolytes are stable. Creatinine 0.72. HEENT: Neck is supple without lymphadenopathy or jugular venous distention (JVD). CARDIOVASCULAR: Heart rate and rhythm are regular. PULMONARY: Lungs are clear. ABDOMEN: Is soft with positive bowel sounds times all four quadrants and is nontender throughout. NEUROLOGICAL: Patient is alert and oriented times three. PSYCHIATRIC: Affect is appropriate. Conversation is congruent. Patient maintains eye contact. ASSESSMENT AND DISCHARGE DIAGNOSES: 1. Moderate sigmoid diverticulosis. 2. Moderate constipation. SECONDARY DIAGNOSES: Include; 1. Hypertension. 2. Coronary artery disease. PLAN: Patient will be discharged to home. She will followup with her primary care provider (PCP), Dr. José Antonio Rodriguez, at her regularly scheduled appointment on 12/31/2016. Diet is low residue. Activity is as tolerated. Medications are as follows: - Augmentin 875 mg by mouth twice a day for seven more days - clindamycin 300 mg by mouth four times a day for seven more days - Tylenol 650 mg by mouth twice a day as needed - Aquaphor ointment as needed irritation - aspirin 81 mg one daily - atorvastatin 40 mg by mouth nightly - Boost one can daily - budesonide 3 mg by mouth daily - calcium/vitamin D one tablet by mouth twice a day - Colace 100 mg by mouth nightly - fluticasone one spray each nostril daily - magnesium oxide 400 mg by mouth twice a day - meclizine 25 mg by mouth as needed for vertigo or dizziness - metoprolol 25 mg by mouth twice a day - Metrogel one dose topically daily - multivitamin one tablet daily - oxybutynin 3.9 mg TD as directed - Systane eye drops both eyes as needed dry eyes - tamoxifen 20 mg by mouth daily - vitamin D 1000 international units by mouth daily Patient is discharged in stable and satisfactory condition with no further questions at the time of discharge.
== END 2016-12-21 10:13 | disposition home or self-care (01) | DRG 392 ==
LOC: M MSPAV 17:17
PROVIDERS: ADMIT Family Medicine; ATTEND Family Medicine
DX: K57.92 Diverticulitis of intestine, part unspecified, without perforation or abscess without bleeding (principal); K59.00 Constipation, unspecified; I10 Essential (primary) hypertension; I25.10 Atherosclerotic heart disease of native coronary artery without angina pectoris; Z79.899 Other long term (current) drug therapy; Z79.82 Long term (current) use of aspirin; E78.5 Hyperlipidemia, unspecified; M19.90 Unspecified osteoarthritis, unspecified site; E55.9 Vitamin D deficiency, unspecified

== ENCOUNTER → 2016-12-29 | Outpatient (REF) | payer MEDICARE, OTHER ==
[~2016-12-29] MED LIST changes: +ACET50TAOT PO; +AMOX875T2 PO; +AQUAOIN2 TOP; +BOOSLIQ PO; +CLEO150C PO; +DOCU100C16 PO; +LASI20TA PO; +LISI10TA4 PO; +POTA10CA PO
[2016-12-29 20:54] LABS: MEAN CORPUSCULAR HEMOGLOBIN 30.1 pg (27.0-33.0); MEAN CORPUSCULAR HGB CONC 32.5 g/dl (32.0-36.5); MEAN CORPUSCULAR VOLUME 92.7 fl (80.0-96.0); RED CELL DISTRIBUTION WIDTH 14.3 % (11.5-14.5); WHITE BLOOD COUNT 6.7 10^3/uL (4.0-10.0)
[2016-12-29 21:11] LABS: CREATININE FOR GFR 0.95 MG/DL (0.55-1.02); GLOMERULAR FILTRATION RATE 59.1 (>32); POTASSIUM SERUM 4.1 MEQ/L (3.5-5.1)
== END ==
LOC: M SFHCADAM 13:50
PROVIDERS: ATTEND Physician Assistant
DX: R60.0 Localized edema (principal); L98.9 Disorder of the skin and subcutaneous tissue, unspecified

== ENCOUNTER 2016-12-30 15:32 | Inpatient (IN) | payer MEDICARE, OTHER ==
[~2016-12-30] VITALS: Ht 157.5 cm; Wt 55.6 kg
[~2016-12-30 15:32] MED LIST changes: -ACET50TAOT PO; -LASI20TA PO; -LISI10TA4 PO; -POTA10CA PO
[2016-12-30] MEDS ORDERED: LASI20TA PO (16:00)
[2016-12-30 16:28] LABS: BASO % 0.6 % (0.0-1.0); EOS # 0.1 10^3/uL (0.0-0.50); EOS % 0.8 % (0.0-3.0); IMMATURE GRANULOCYTE % 0.3 % (0-0); LYMPH # 1.5 10^3/uL (1.5-4.5); LYMPH % 23.4 % (24.0-44.0); MEAN CORPUSCULAR HEMOGLOBIN 29.9 pg (27.0-33.0); MEAN CORPUSCULAR HGB CONC 32.6 g/dl (32.0-36.5); MEAN CORPUSCULAR VOLUME 91.8 fl (80.0-96.0); MONO # 0.7 10^3/uL (0.0-0.8); MONO % 11.8 % (0.0-5.0); NEUTROPHILS % 63.1 % (36.0-66.0); PLATELET COUNT, AUTOMATED 282 10^3/uL (150-450); RED CELL DISTRIBUTION WIDTH 14.2 % (11.5-14.5); WHITE BLOOD COUNT 6.3 10^3/uL (4.0-10.0)
[2016-12-30 16:39] LABS: INR 0.96
--- NOTE | 2016-12-30 16:42 | REP ---
Chest one-view HISTORY: Dyspnea Comparison: 07/09/2016 An increase in interstitial markings is present in the lungs. Small bilateral pleural effusions are present. The cardiac silhouette is enlarged. The pulmonary vasculature is prominent. The heart is normal in size. The pulmonary vasculature is normal in appearance. Impression: 1. COPD. 2. Small bilateral effusions. 3. Cardiomegaly. Signed by Faheem Marks MD 12/30/2016 04:34 P
[2016-12-30 16:47] LABS: ANION GAP 7 MEQ/L (8-16); BLOOD UREA NITROGEN 15 MG/DL (7-18); CALCIUM LEVEL 9.1 MG/DL (8.8-10.2); CARBON DIOXIDE LEVEL 30 MEQ/L (21-32); CHLORIDE LEVEL 101 MEQ/L (98-107); CREATININE FOR GFR 1.01 MG/DL (0.55-1.02); GLOMERULAR FILTRATION RATE 55.1 (>32); GLUCOSE, FASTING 156 MG/DL (83-110); POTASSIUM SERUM 3.7 MEQ/L (3.5-5.1); SODIUM LEVEL 138 MEQ/L (136-145)
[2016-12-30 16:54] LABS: ALBUMIN 3.4 GM/DL (3.2-5.2); BILIRUBIN,DIRECT 0.2 MG/DL (0.0-0.2); BILIRUBIN,TOTAL 0.6 MG/DL (0.2-1.0); TOTAL PROTEIN 6.8 GM/DL (6.4-8.2)
[2016-12-30] MEDS ORDERED: FUROSEMIDE 40 MG/4 ML VIAL (J1940) IV ONE (17:15)
[2016-12-30] MEDS ORDERED: ACET50TAOT PO (17:53)
--- NOTE | 2016-12-30 18:30 | REP ---
BILATERAL LOWER EXTREMITY DOPPLER VENOUS ULTRASOUND: 12/30/2016. Comparison: Left leg 12/04/2011. Clinical history: Lower extremity swelling weeping fluid. Findings: The deep venous system from the groin to the popliteal fossa was studied with standard duplex techniques, compression ultrasound and wong-scale imaging with color flow. There is full compressibility throughout the deep venous system. Wong scale imaging and color-flow show patency throughout. There is respiratory variation throughout both lower extremities. There is somewhat limited augmentation on the left because of swelling and poor ability to compress the calf. Impression: 1. No Doppler venous ultrasound evidence of DVT in the bilateral lower extremities. Signed by Stu Villegas MD 12/30/2016 08:12 P
[2016-12-30] MEDS ORDERED: LISINOPRIL 10 MG TAB PO ONE (19:00)
--- NOTE | 2016-12-30 19:52 | HPEPDOC ---
[facility] Medical History & Physical Date of Admission Dec 30, 2016 History and Physical PRIMARY CARE PROVIDER: Dr. Rodriguez ATTENDING: Dr. Rodriguez CHIEF COMPLAINT: Dyspnea HISTORY OF PRESENT ILLNESS: This is a 86-year-old female past medical history hypertension, hyperlipidemia, recent admission for diverticulitis, remote history of breast cancer, osteoporosis who presents with dyspnea. Patient states she was recently admitted for diverticulitis and had received a lot of IV fluids. States that her lower extremities is been progressively getting more swollen, followed up with Dr. Rodriguez and on Tuesday, and now progressively developed dyspnea for which she was advised to come to the ED. Patient denies chest pain/palpitations. No nausea/vomiting/abdominal pain. No syncope. PAST MEDICAL HISTORY: As per HPI PAST SURGICAL HISTORY: L and R hip fx, L breast lumpectomy, cholecystectomy SOCIAL HISTORY: Denies tobacco, alcohol, illicit drug use. FAMILY HISTORY: Noncontributory ALLERGIES: Please see below. REVIEW OF SYSTEMS: HEENT: Denies sore throat/headache CARDIOVASCULAR: Denies chest pain/palpitations RESPIRATORY: Positive shortness of breath. No cough GASTROINTESTINAL: denies nausea/vomiting GENITOURINARY: Denies dysuria/urinary urgency. MUSCULOSKELETAL: Denies myalgias/arthralgias NEUROLOGICAL: Denies any focal weakness HOME MEDICATIONS: Please see below. PHYSICAL EXAMINATION: Vitals: (see below) General: No acute distress, laying comfortably in bed. HEENT: Moist mucous membranes. Neck: No JVD or lymphadenopathy Cardiac: RRR, No murmurs Pulm: Coarse crackles at the bases b/l. No wheezing, rhonchi Abd: NT/ND + BS Ext: 2+ pitting edema bilateral lower extremities. No cyanosis. Distal pulses intact. LABORATORY DATA: See below. IMAGING: BLE U/S 12/30/16 Impression: No Doppler venous ultrasound evidence of DVT in the bilateral lower extremities. CXR 12/30/16 Impression: 1. COPD. 2. Small bilateral effusions. 3. Cardiomegaly. MICROBIOLOGY: Please see below. ASSESSMENT/PLAN: 1. Acute decompensated heart failure- recent IV fluids from recent admission with progression of fluid retention. We'll start patient on Lasix IV twice a day. Echocardiogram. Cardiac enzymes negative. Patient denies chest pain. 2. Hypertension - uncontrolled. Started on lisinopril. 3. Hyperlipidemia- statin 4. Recent admission for diverticulitis-no abdominal pain at this point. 5. Remote history of breast cancer 6. History of osteoporosis DVT prophylaxis- enoxaparin Patient will be signed out to Dr.Wetterhahn dhillon and will be followed by the family medicine team thereafter. Vital Signs Vital Signs Date Time Temp Pulse Resp B/P (MAP) Pulse Ox O2 Delivery O2 Flow Rate FiO2 12/30/16 18:47 75 92 12/30/16 18:46 191/86 (121) 12/30/16 16:07 Room Air 2.0 12/30/16 15:33 99.8 Laboratory Data Labs 24H Laboratory Tests 2 12/30/16 16:00: Immature Granulocyte % (Auto) 0.3H, White Blood Count 6.3, Red Blood Count 4.28 , Hemoglobin 12.8, Hematocrit 39.3, Mean Corpuscular Volume 91.8, Mean Corpuscular Hemoglobin 29.9, Mean Corpuscular Hemoglobin Concent 32.6, Red Cell Distribution Width 14.2, Platelet Count 282, Neutrophils (%) (Auto) 63.1, Lymphocytes (%) (Auto) 23.4L, Monocytes (%) (Auto) 11.8H, Eosinophils (%) (Auto ) 0.8, Basophils (%) (Auto) 0.6, Neutrophils # (Auto) 4.0, Lymphocytes # (Auto) 1.5, Monocytes # (Auto) 0.7, Eosinophils # (Auto) 0.1, Basophils # (Auto) 0.0, Immature Granulocyte # (Auto) 0.0, Nucleated Red Blood Cells % (auto) 0.0, Prothrombin Time 12.9, Prothromb Time International Ratio 0.96, Anion Gap 7L, Glomerular Filtration Rate 55.1, Blood Urea Nitrogen 15, Creatinine 1.01, Sodium Level 138, Potassium Level 3.7, Chloride Level 101, Carbon Dioxide Level 30, Calcium Level 9.1, Total Creatine Kinase 127, Aspartate Amino Transf (AST/ SGOT) 28, Alanine Aminotransferase (ALT/SGPT) 23, Alkaline Phosphatase 36L, Total Bilirubin 0.6, Direct Bilirubin 0.2, Creatine Kinase MB 2.5, Creatine Kinase MB Relative Index 1.96, Troponin I < 0.02, GR-Fpe-T-Type Natriuretic Peptide 5277H, Total Protein 6.8, Albumin 3.4, Albumin/Globulin Ratio 1.00, Thyroid Stimulating Hormone (TSH) 0.423 CBC/BMP Laboratory Tests 12/30/16 16:00 Red Blood Count 4.28, Mean Corpuscular Volume 91.8, Mean Corpuscular Hemoglobin 29.9, Mean Corpuscular Hemoglobin Concent 32.6, Red Cell Distribution Width 14.2 , Neutrophils (%) (Auto) 63.1, Lymphocytes (%) (Auto) 23.4 L, Monocytes (%) ( Auto) 11.8 H, Eosinophils (%) (Auto) 0.8, Basophils (%) (Auto) 0.6, Neutrophils # (Auto) 4.0, Lymphocytes # (Auto) 1.5, Monocytes # (Auto) 0.7, Eosinophils # ( Auto) 0.1, Basophils # (Auto) 0.0, Calcium Level 9.1, Total Creatine Kinase 127 Home Medications Scheduled (Caltrate 600+D 600-800 mg-Unit) 1 Tab Tab, 1 TAB PO BID (Boost High Protein) 1 Liq Liq, 1 LIQ PO DAILY TAKES AT NOON Acetaminophen (Acetaminophen) 500 Mg Tab, 1,000 MG PO BID Aspirin (Aspir-81) 81 Mg Tab, 81 MG PO DAILY Atorvastatin Calcium (Atorvastatin Calcium) 40 Mg Tab, 40 MG PO ACS Budesonide (Budesonide) 3 Mg Cap, 3 MG PO DAILY Docusate Sodium (Docusate Sodium) 100 Mg Cap, 100 MG PO QHS Fluticasone Propionate (Fluticasone Propionate) 50 Mcg/Act Spr, 1 SPRAY NA DAILY Furosemide (Lasix) 20 Mg Tab, 20 MG PO DAILY Magnesium Oxide (Magnesium) 400 Mg Tab, 400 MG PO BID Metoprolol Tartrate (Metoprolol Tartrate) 25 Mg Tab, 25 MG PO BID Metronidazole (Metronidazole 0.75% Crm) 1 Dose/45 Gm Cream, 1 DOSE TOP DAILY FOR ROSACEA Multivitamins *[facility] STOCKED* (Thera M Plus *[facility] STOCKED*) 1 Tab Tab, 1 TAB PO DAILY TAKES AT NOON Oxybutynin Base (Oxytrol For Women) 3.9 Mg/24 Hr Dis, 3.9 MG TD ASDIRECTED EVERY 4 DAYS, PATCH IS CURRENTLY ON RIGHT SIDE Tamoxifen Citrate (Tamoxifen Citrate) 20 Mg Tab, 20 MG PO DAILY Vitamin D (Vitamin D) 1,000 Unit Cap, 1,000 UNIT PO DAILY Scheduled PRN (Systane Ultra 0.4-0.3 %) 1 Nicole Nicole, 1 DROP OU PRN PRN for DRY EYES (Aquaphor) 1 Oin Oin, 1 DOSE TOP PRN PRN for IRRITATION USES WHEN CHANGES PATCH Allergies Coded Allergies: Ciprofloxacin (Verified Allergy, Mild, redness, itching, 07/10/16) Metronidazole (Unverified Adverse Reaction, Intermediate, ORAL FORM- SEVERE N/V, IV FORM IS OK PER PATIENT, 12/18/16) Alendronate (Verified Adverse Reaction, Mild, JAW PAIN, 07/16/16) Cephalexin (Unverified Adverse Reaction, Mild, GI/N/V/D, 07/16/16) Sulfa Drugs (Verified Adverse Reaction, Mild, GI/N/V/D, 07/16/16) MICHAEL SANTAMARIA MD Dec 30, 2016 19:52
[2016-12-31] VITALS (8 sets, daily range): BP systolic 113–170; BP diastolic 62–75
--- NOTE | 2016-12-31 06:08 | ECGEPIP ---
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
[2016-12-31 06:45] LABS: MEAN CORPUSCULAR HEMOGLOBIN 29.9 pg (27.0-33.0); MEAN CORPUSCULAR HGB CONC 33.2 g/dl (32.0-36.5); MEAN CORPUSCULAR VOLUME 89.9 fl (80.0-96.0); PLATELET COUNT, AUTOMATED 240 10^3/uL (150-450)
[2016-12-31 07:03] LABS: ANION GAP 8 MEQ/L (8-16); BLOOD UREA NITROGEN 15 MG/DL (7-18); CALCIUM LEVEL 8.8 MG/DL (8.8-10.2); CARBON DIOXIDE LEVEL 31 MEQ/L (21-32); CHLORIDE LEVEL 104 MEQ/L (98-107); CREATININE FOR GFR 0.92 MG/DL (0.55-1.02); GLOMERULAR FILTRATION RATE > 60.0 (>32); GLUCOSE, FASTING 90 MG/DL (83-110); MAGNESIUM LEVEL 2.2 MG/DL (1.8-2.4); SODIUM LEVEL 143 MEQ/L (136-145)
[2016-12-31] MEDS: FUROSEMIDE 40 MG/4 ML VIAL (J1940) IV SCH ×2 (10:24→21:00)
[2016-12-31] MEDS: LISINOPRIL 10 MG TAB PO SCH (10:24)
[2016-12-31] MEDS: ENOXAPARIN 40 MG/0.4 ML SYRINGE (J1650) SC SCH (10:25)
--- NOTE | 2016-12-31 10:51 | IPNPDOC ---
Subjective Date Seen The patient was seen on 12/31/16. Subjective Chief Complaint/HPI The patient is a 86-year-old female admitted with a reason for visit of CHF. Events since last encounter Pt feeling much better this morning. She states that her breathing is better, her legs less swollen. General: Denies: Fatigue Constitutional: Denies: Chills, Fever ENT: Denies: Head Aches Pulmonary: Denies: Dyspnea, Cough Cardiovascular: Denies: Chest Pain, Palpitations Gastrointestinal: Denies: Nausea, Vomiting, Diarrhea Neurological: Denies: Weakness Psych: Reports: Mood Normal Objective Physical Examination General Exam: Positive: Alert, No Acute Distress ENT Exam: Positive: Mucous membr. moist/pink Chest Exam: Positive: Other (few crackles at B bases), Negative: Clear to auscultation Heart Exam: Positive: Rate Normal, Normal S1, Normal S2 Abdomen Exam: Positive: Normal bowel sounds, Soft, Negative: Tenderness Extremity Exam: Negative: Edema (trace BLE) Psych Exam: Positive: Mood NL Assessment /Plan Problems (1) CHF (congestive heart failure) Status: Acute Response to Treatment: Improving Discussed With: Nurse, Patient Problem Specific Plan: Monitor Clinically, Repeat Labs Problem Text: symptomatically significantly better. She will cont with IV lasix 40 BID, monitor I & Os, KYLER diet, ECHO ordered. Anticipate d/c home in AM. (2) Hypokalemia Status: Acute Problem Text: Likely related to increased loop diuretic therapy. We'll start her on 40 mEq by mouth twice a day and monitor. Plan/VTE VTE Prophylaxis Ordered?: Yes Plan Family Medicine Attending Note: I saw and examined Ms. Mcintyre, discussed with MEHRAN Reddy. Agree with their note as documented. She reports she feels much better than she did yesterday. She still has some leg edema and crackles at her lung bases, but they're not significant. Her potassium needs to be repleted and I will start that now. I anticipate we will continue to to oral medications tomorrow and discharge her either tomorrow or Tuesday. 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) VS, I&O, 24H, Fishbone Vital Signs/I&O Vital Signs Date Time Temp Pulse Resp B/P (MAP) Pulse Ox O2 Delivery O2 Flow Rate FiO2 12/31/16 10:24 152/67 12/31/16 07:10 98.2 73 20 95 Room Air 12/30/16 16:07 2.0 I&O- Last 24 Hours up to 6 AM 01/01/17 05:59 Output Total 250 ml Balance -250 ml Laboratory Data 24H LABS Laboratory Tests 2 12/30/16 16:00: Immature Granulocyte % (Auto) 0.3H, White Blood Count 6.3, Red Blood Count 4.28 , Hemoglobin 12.8, Hematocrit 39.3, Mean Corpuscular Volume 91.8, Mean Corpuscular Hemoglobin 29.9, Mean Corpuscular Hemoglobin Concent 32.6, Red Cell Distribution Width 14.2, Platelet Count 282, Neutrophils (%) (Auto) 63.1, Lymphocytes (%) (Auto) 23.4L, Monocytes (%) (Auto) 11.8H, Eosinophils (%) (Auto ) 0.8, Basophils (%) (Auto) 0.6, Neutrophils # (Auto) 4.0, Lymphocytes # (Auto) 1.5, Monocytes # (Auto) 0.7, Eosinophils # (Auto) 0.1, Basophils # (Auto) 0.0, Immature Granulocyte # (Auto) 0.0, Nucleated Red Blood Cells % (auto) 0.0, Prothrombin Time 12.9, Prothromb Time International Ratio 0.96, Anion Gap 7L, Glomerular Filtration Rate 55.1, Blood Urea Nitrogen 15, Creatinine 1.01, Sodium Level 138, Potassium Level 3.7, Chloride Level 101, Carbon Dioxide Level 30, Calcium Level 9.1, Total Creatine Kinase 127, Aspartate Amino Transf (AST/ SGOT) 28, Alanine Aminotransferase (ALT/SGPT) 23, Alkaline Phosphatase 36L, Total Bilirubin 0.6, Direct Bilirubin 0.2, Creatine Kinase MB 2.5, Creatine Kinase MB Relative Index 1.96, Troponin I < 0.02, LW-Hos-P-Type Natriuretic Peptide 5277H, Total Protein 6.8, Albumin 3.4, Albumin/Globulin Ratio 1.00, Thyroid Stimulating Hormone (TSH) 0.423 12/31/16 06:21: Nucleated Red Blood Cells % (auto) 0.0, Anion Gap 8, Glomerular Filtration Rate > 60.0, Blood Urea Nitrogen 15, Creatinine 0.92, Sodium Level 143, Potassium Level 3.0L, Chloride Level 104, Carbon Dioxide Level 31, Calcium Level 8.8, Magnesium Level 2.2 CBC/BMP Laboratory Tests 12/30/16 16:00 Red Blood Count 4.28, Mean Corpuscular Volume 91.8, Mean Corpuscular Hemoglobin 29.9, Mean Corpuscular Hemoglobin Concent 32.6, Red Cell Distribution Width 14.2 , Neutrophils (%) (Auto) 63.1, Lymphocytes (%) (Auto) 23.4 L, Monocytes (%) ( Auto) 11.8 H, Eosinophils (%) (Auto) 0.8, Basophils (%) (Auto) 0.6, Neutrophils # (Auto) 4.0, Lymphocytes # (Auto) 1.5, Monocytes # (Auto) 0.7, Eosinophils # ( Auto) 0.1, Basophils # (Auto) 0.0, Calcium Level 9.1, Total Creatine Kinase 127 12/31/16 06:21 Red Blood Count 3.88 L, Mean Corpuscular Volume 89.9, Mean Corpuscular Hemoglobin 29.9, Mean Corpuscular Hemoglobin Concent 33.2, Red Cell Distribution Width 14.0, Calcium Level 8.8 AYESHA OLIVO PA-C Dec 31, 2016 10:51 Von Barber MD Dec 31, 2016 17:10
[2016-12-31] MEDS: POTASSIUM CHLORIDE 10 MEQ SR TABLET PO SCH (17:41)
[2016-12-31] MEDS: PANTOPRAZOLE 40MG TAB (PROTONIX) PO SCH (17:41)
[2016-12-31] MEDS: NYSTATIN 500,000 U/5 ML SUSP UDC SS SCH (21:00)
[2017-01-01 04:00] VITALS: BP 129/64
[2017-01-01 05:32] LABS: MEAN CORPUSCULAR HEMOGLOBIN 29.7 pg (27.0-33.0); MEAN CORPUSCULAR HGB CONC 32.8 g/dl (32.0-36.5); MEAN CORPUSCULAR VOLUME 90.6 fl (80.0-96.0); PLATELET COUNT, AUTOMATED 237 10^3/uL (150-450); WHITE BLOOD COUNT 5.1 10^3/uL (4.0-10.0)
[2017-01-01 05:49] LABS: ANION GAP 6 MEQ/L (8-16); BLOOD UREA NITROGEN 18 MG/DL (7-18); CALCIUM LEVEL 8.7 MG/DL (8.8-10.2); CARBON DIOXIDE LEVEL 33 MEQ/L (21-32); CHLORIDE LEVEL 103 MEQ/L (98-107); CREATININE FOR GFR 0.88 MG/DL (0.55-1.02); GLOMERULAR FILTRATION RATE > 60.0 (>32); GLUCOSE, FASTING 83 MG/DL (83-110); POTASSIUM SERUM 3.1 MEQ/L (3.5-5.1); SODIUM LEVEL 142 MEQ/L (136-145)
[2017-01-01 08:00] VITALS: BP 151/73
[2017-01-01] MEDS: FUROSEMIDE 40 MG/4 ML VIAL (J1940) IV SCH (09:23)
[2017-01-01] MEDS: NYSTATIN 500,000 U/5 ML SUSP UDC SS SCH ×2 (09:23→21:36)
[2017-01-01] MEDS: ENOXAPARIN 40 MG/0.4 ML SYRINGE (J1650) SC SCH (09:23)
[2017-01-01] MEDS: PANTOPRAZOLE 40MG TAB (PROTONIX) PO SCH (09:24)
[2017-01-01] MEDS: POTASSIUM CHLORIDE 10 MEQ SR TABLET PO SCH ×2 (09:24→21:36)
[2017-01-01] MEDS: LISINOPRIL 10 MG TAB PO SCH (09:24)
--- NOTE | 2017-01-01 11:56 | ECHO ---
DATE OF PROCEDURE: 12/31/2016 REFERRING PHYSICIAN: Dr. Rodriguez and Dr. Montes. INDICATION: Congestive heart failure. Study was performed on 12/31/2016. Patient measures 158 cm and weighs 61 kg. DIMENSIONS: IVS: 1.2 LV: 3.6 LVPW: 1.1 LA: 4.1 Aorta: 3.0 FINDINGS: Study is of good technical quality. Left ventricle is of normal size and normal systolic function. I estimate left ventricular ejection fraction (LVEF) approximately 60-65%. Right ventricle also appears normal. Both atria are probably severely enlarged, even though the visualization was limited. Aortic valve appears normal for patient's age. There appears to be echodensity attached to the edge of aortic cusp that measures approximately 1 cm. 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 Mitral valve appears normal for patient's age. Mild degenerative abnormalities are noted. Tricuspid and pulmonic valve appear normal. There is trivial pericardial effusion. There is apparent left pleural effusion. Inferior vena cava is normal size. Aortic root is normal. Aortic arch and abdominal aorta grossly appear normal, even though visualization was limited. Doppler interrogation of aortic valve reveals no stenosis and trivial insufficiency. There is mild mitral insufficiency and mild tricuspid insufficiency. Calculated pulmonary artery pressure is in 30s corresponding to mild pulmonary hypertension. Trace pulmonic insufficiency is seen. Evaluation of diastolic function reveals grade 2 diastolic dysfunction, E velocity on mitral inflow was 47 cm/sec, A velocity 34 cm/sec, E prime septal 4.7, E prime lateral 7.6 cm/sec. CONCLUSION: 1. Study is of good technical quality. 2. Normal LV size with borderline left ventricular hypertrophy (LVH) and normal LV systolic function. Grade 2 diastolic dysfunction. 3. Normal RV size and systolic function. 4. 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 5. Mild degenerative abnormality of mitral valve with mild mitral insufficiency. 6. Normal central venous pressure and likely mild pulmonary hypertension. 7. Left pleural effusion. COMMENT: Subacute bacterial endocarditis (SBE) prophylaxis is not recommended. Edited: 01/01/2017 1158 vm MTDD
[2017-01-01 12:00] VITALS: BP 123/62
[2017-01-01 13:00] LABS: CALCIUM LEVEL 9.3 MG/DL (8.8-10.2); CREATININE FOR GFR 1.03 MG/DL (0.55-1.02); GLOMERULAR FILTRATION RATE 53.8 (>32); POTASSIUM SERUM 4.2 MEQ/L (3.5-5.1)
[2017-01-01 16:00] VITALS: BP 116/73
[2017-01-01] MEDS ORDERED: FUROSEMIDE 20 MG TAB PO SCH (17:00)
[2017-01-01] MEDS ORDERED: FUROSEMIDE 20 MG TAB PO ONE (17:00)
[2017-01-01 20:00] VITALS: BP 106/51
--- NOTE | 2017-01-01 21:46 | IPNPDOC ---
Subjective Date Seen The patient was seen on 01/01/17. Subjective Chief Complaint/HPI The patient is a 86-year-old female admitted with a reason for visit of CHF. Events since last encounter Patient seen and examined this morning. She reports improved swelling in the lower extremities. She denies any shortness of breath or chest pain. Patient states that she had an echo cardiogram last night. Constitutional: Denies: Chills, Fever, Night Sweats Pulmonary: Denies: Dyspnea, Cough Cardiovascular: Denies: Chest Pain, Palpitations, Orthopnea, Paroxysmal Noc. Dyspnea, Lt Headedness Gastrointestinal: Denies: Nausea, Vomiting, Abdominal Pain, Diarrhea, Constipation Genitourinary: Denies: Dysuria, Frequency, Incontinence, Retention Objective Physical Examination General Exam: Positive: Alert, No Acute Distress ENT Exam: Positive: Mucous membr. moist/pink Chest Exam: Positive: Other (few crackles at B bases), Negative: Clear to auscultation Heart Exam: Positive: Rate Normal, Normal S1, Normal S2 Abdomen Exam: Positive: Normal bowel sounds, Soft, Negative: Tenderness Extremity Exam: Negative: Edema (trace BLE) Psych Exam: Positive: Mood NL Assessment /Plan Problems (1) CHF (congestive heart failure) Status: Acute Response to Treatment: Improving Discussed With: Nurse, Patient Problem Specific Plan: Monitor Clinically, Repeat Labs Problem Text: Patient had echocardiogram completed on 12/31/2016 which showed a LVEF of 60-65%. There is a noted grade 2 diastolic dysfunction. Symptomatically significantly better. change to oral Lasix 20 mg daily, will start with 1 dose tonight. Continue to monitor I & Os, KYLER diet, ECHO ordered. Anticipate d/c home tomorrow morning. (2) Hypokalemia Status: Acute Problem Text: Likely related to increased loop diuretic therapy. We'll start her on 40 mEq by mouth twice a day and monitor. Plan/VTE VTE Prophylaxis Ordered?: Yes VS, I&O, 24H, Fishbone Vital Signs/I&O Vital Signs Date Time Temp Pulse Resp B/P (MAP) Pulse Ox O2 Delivery O2 Flow Rate FiO2 01/01/17 12:00 Room Air 01/01/17 12:00 99.1 75 18 123/62 (82) 98 12/30/16 16:07 2.0 I&O- Last 24 Hours up to 6 AM 01/02/17 06:00 Intake Total 960 ml Output Total 550 ml Balance 410 ml Laboratory Data 24H LABS Laboratory Tests 2 01/01/17 04:54: Nucleated Red Blood Cells % (auto) 0.0, Anion Gap 6L, Glomerular Filtration Rate > 60.0, Blood Urea Nitrogen 18, Creatinine 0.88, Sodium Level 142, Potassium Level 3.1L, Chloride Level 103, Carbon Dioxide Level 33H, Calcium Level 8.7L, Magnesium Level 2.0 01/01/17 12:24: Anion Gap 6L, Glomerular Filtration Rate 53.8, Blood Urea Nitrogen 19H, Creatinine 1.03H, Sodium Level 139, Potassium Level 4.2#, Chloride Level 101, Carbon Dioxide Level 32, Calcium Level 9.3 CBC/BMP Laboratory Tests 01/01/17 04:54 Red Blood Count 4.04, Mean Corpuscular Volume 90.6, Mean Corpuscular Hemoglobin 29.7, Mean Corpuscular Hemoglobin Concent 32.8, Red Cell Distribution Width 14.0 , Calcium Level 8.7 L 01/01/17 12:24 Calcium Level 9.3 GME ATTESTATION GME ATTESTATION My preceptor for this patient encounter was physically present in the building during the encounter and was fully available. As needed, all aspects of the patient interview, examination, medical decision making process, and medical care plan development were reviewed and approved by the preceptor. Preceptor is aware and concurs with the plan as stated in the body of this note and will attest to such by his/her cosignature. ATTENDING NOTE Family Medicine Attending Note: I was present on site to supervise Jung Garcia DO (PGY-2). We discussed the history and exam. I confirmed the langley elements during my [id number] encounter with the patient. We conferred on the assessment and plan; I agree with the note as documented. 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
[2017-01-01 23:59] VITALS: BP 144/70
[2017-01-02 04:00] VITALS: BP 136/72
[2017-01-02 05:32] LABS: MEAN CORPUSCULAR HEMOGLOBIN 29.8 pg (27.0-33.0); MEAN CORPUSCULAR HGB CONC 32.7 g/dl (32.0-36.5); MEAN CORPUSCULAR VOLUME 91.2 fl (80.0-96.0); PLATELET COUNT, AUTOMATED 230 10^3/uL (150-450); RED CELL DISTRIBUTION WIDTH 13.9 % (11.5-14.5); WHITE BLOOD COUNT 4.9 10^3/uL (4.0-10.0)
[2017-01-02 05:55] LABS: CALCIUM LEVEL 8.8 MG/DL (8.8-10.2); CREATININE FOR GFR 0.97 MG/DL (0.55-1.02); GLOMERULAR FILTRATION RATE 57.7 (>32); POTASSIUM SERUM 3.7 MEQ/L (3.5-5.1)
[2017-01-02 07:30] VITALS: BP 157/80
[2017-01-02] MEDS: ENOXAPARIN 40 MG/0.4 ML SYRINGE (J1650) SC SCH (08:17)
[2017-01-02 08:18] VITALS: BP 136/72
[2017-01-02] MEDS: PANTOPRAZOLE 40MG TAB (PROTONIX) PO SCH (08:18)
[2017-01-02] MEDS: POTASSIUM CHLORIDE 10 MEQ SR TABLET PO SCH (08:18)
[2017-01-02] MEDS: LISINOPRIL 10 MG TAB PO SCH (08:18)
[2017-01-02] MEDS: NYSTATIN 500,000 U/5 ML SUSP UDC SS SCH (08:19)
[2017-01-02] MEDS ORDERED: FUROSEMIDE 20 MG TAB PO SCH (09:00)
[2017-01-02] MEDS ORDERED: POTA10CA PO (14:09)
[2017-01-02] MEDS ORDERED: LISI10TA4 PO (14:09)
--- NOTE | 2017-01-02 14:12 | DS.PDOC ---
Discharge Summary General Date of Admission Dec 30, 2016 at 18:57 Date of Discharge 01/02/2017 Primary Care Physician: José Antonio Rodriguez MD Attending Physician: Von Barber MD Discharge Summary ADMITTING DIAGNOSES: 1. Acute decompensated congestive heart failure. 2. Hypertension. 3. Anemia. 4. treated for recent diverticulitis. 5. Remote history of breast cancer. 6. Osteoporosis. DISCHARGE DIAGNOSES: 1. Chronic diastolic congestive heart failure. 2. Hypokalemia. PROCEDURES PERFORMED DURING STAY: Echocardiogram on 12/30/16. ADMISSION HISTORY: Mrs. Serrano was recently discharged from the hospital after a bout of diverticulitis. At that time she was breathing fine, however, within a couple days she noticed increased leg edema and difficulty breathing. She came back to the emergency department for further evaluation.. Please see the admission history and physical for the remaining details. HOSPITAL COURSE: Ms. Serrano was admitted with a acute on chronic diastolic congestive heart failure exacerbation. She had been started on 20 mg of by mouth Lasix by her PCP just 1-2 days prior to admission. She diuresed nicely with IV Lasix in the hospital. She was changed to oral medications and did well , therefore she was discharged back home again. DISCHARGE CONDITION: Stable. FOLLOW-UP: Prior to discharge an appointment was scheduled with Ashley Taylor NP on 01/05/17 at 11:00 Am. ACTIVITY: As tolerated. DISCHARGE MEDICATIONS: Please see below. ALLERGIES: Please see below. LABORATORY DATA: Please see below. IMAGING: Chest x-ray, bilateral lower extremity venous Doppler ultrasounds DISCHARGE INSTRUCTIONS: 1. Please start a 1500 mL daily fluid restriction. 2. Please take Lasix 20 mg by mouth twice a day until or unless you are instructed to do so otherwise by a physician. Vital Signs/I&Os Vital Signs Date Time Temp Pulse Resp B/P (MAP) Pulse Ox O2 Delivery O2 Flow Rate FiO2 01/02/17 08:18 136/72 01/02/17 07:30 98.1 86 16 96 Room Air 12/30/16 16:07 2.0 I&O- Last 24 Hours up to 6 AM 01/03/17 05:59 Intake Total 180 ml Output Total 0 ml Balance 180 ml Laboratory Data Labs 24H Laboratory Tests 2 01/02/17 05:23: Nucleated Red Blood Cells % (auto) 0.0, Anion Gap 6L, Glomerular Filtration Rate 57.7, Blood Urea Nitrogen 23H, Creatinine 0.97, Sodium Level 143, Potassium Level 3.7, Chloride Level 106, Carbon Dioxide Level 31, Calcium Level 8.8, Magnesium Level 2.0 CBC/BMP Laboratory Tests 01/02/17 05:23 Red Blood Count 3.96 L, Mean Corpuscular Volume 91.2, Mean Corpuscular Hemoglobin 29.8, Mean Corpuscular Hemoglobin Concent 32.7, Red Cell Distribution Width 13.9, Calcium Level 8.8 Discharge Medications Scheduled (Caltrate 600+D 600-800 mg-Unit) 1 Tab Tab, 1 TAB PO BID, (Reported) (Boost High Protein) 1 Liq Liq, 1 LIQ PO DAILY, (Reported) TAKES AT NOON Acetaminophen (Acetaminophen) 500 Mg Tab, 1,000 MG PO BID, (Reported) Aspirin (Aspir-81) 81 Mg Tab, 81 MG PO DAILY, (Reported) Atorvastatin Calcium (Atorvastatin Calcium) 40 Mg Tab, 40 MG PO ACS, (Reported) Budesonide (Budesonide) 3 Mg Cap, 3 MG PO DAILY, (Reported) Docusate Sodium (Docusate Sodium) 100 Mg Cap, 100 MG PO QHS, (Reported) Fluticasone Propionate (Fluticasone Propionate) 50 Mcg/Act Spr, 1 SPRAY NA DAILY , (Reported) Furosemide (Lasix) 20 Mg Tab, 20 MG PO DAILY, (Reported) Lisinopril (Lisinopril) 10 Mg Tab, 10 MG PO DAILY Magnesium Oxide (Magnesium) 400 Mg Tab, 400 MG PO BID, (Reported) Metronidazole (Metronidazole 0.75% Crm) 1 Dose/45 Gm Cream, 1 DOSE TOP DAILY, ( Reported) FOR ROSACEA Multivitamins *[facility] STOCKED* (Thera M Plus *[facility] STOCKED*) 1 Tab Tab, 1 TAB PO DAILY, (Reported) TAKES AT NOON Oxybutynin Base (Oxytrol For Women) 3.9 Mg/24 Hr Dis, 3.9 MG TD ASDIRECTED, ( Reported) EVERY 4 DAYS, PATCH IS CURRENTLY ON RIGHT SIDE Potassium Chloride (Klor-Con M10) 10 Meq Tabcr, 40 MEQ PO DAILY Tamoxifen Citrate (Tamoxifen Citrate) 20 Mg Tab, 20 MG PO DAILY, (Reported) Vitamin D (Vitamin D) 1,000 Unit Cap, 1,000 UNIT PO DAILY, (Reported) Scheduled PRN (Systane Ultra 0.4-0.3 %) 1 Nicole Nicole, 1 DROP OU PRN PRN for DRY EYES, (Reported) (Aquaphor) 1 Oin Oin, 1 DOSE TOP PRN PRN for IRRITATION, (Reported) USES WHEN CHANGES PATCH Allergies Coded Allergies: Ciprofloxacin (Verified Allergy, Mild, redness, itching, 07/10/16) Metronidazole (Unverified Adverse Reaction, Intermediate, ORAL FORM- SEVERE N/V, IV FORM IS OK PER PATIENT, 12/18/16) Alendronate (Verified Adverse Reaction, Mild, JAW PAIN, 07/16/16) Cephalexin (Unverified Adverse Reaction, Mild, GI/N/V/D, 07/16/16) Sulfa Drugs (Verified Adverse Reaction, Mild, GI/N/V/D, 07/16/16) Von Barber MD Jan 02, 2017 14:12
== END 2017-01-02 14:50 | disposition home or self-care (01) | DRG 293 ==
LOC: M ED 15:32 → M ED INP 18:57 → M PCU 23:54
PROVIDERS: ADMIT Internal Medicine; ATTEND Family Medicine
DX: I11.0 Hypertensive heart disease with heart failure (principal); E87.6 Hypokalemia; I50.31 Acute diastolic (congestive) heart failure; E78.5 Hyperlipidemia, unspecified; Z85.3 Personal history of malignant neoplasm of breast

== ENCOUNTER → 2017-01-05 | Outpatient (REF) | payer MEDICARE, OTHER ==
[~2017-01-05] MED LIST changes: +ACET50TAOT PO; +LASI20TA PO; +LISI10TA4 PO; +POTA10CA PO
[2017-01-05 14:22] LABS: ALBUMIN 3.9 GM/DL (3.2-5.2); BILIRUBIN,TOTAL 0.7 MG/DL (0.2-1.0); CALCIUM LEVEL 10.1 MG/DL (8.8-10.2); CREATININE FOR GFR 0.95 MG/DL (0.55-1.02); GLOMERULAR FILTRATION RATE 59.1 (>32); POTASSIUM SERUM 4.9 MEQ/L (3.5-5.1); TOTAL PROTEIN 7.8 GM/DL (6.4-8.2)
== END ==
LOC: M SFHCPLAZ 11:34
PROVIDERS: ATTEND Nurse Practitioner Family
DX: I50.9 Heart failure, unspecified (principal)
CPT/HCPCS: 80053; G0463

== ENCOUNTER → 2017-02-11 | Outpatient (REF) | payer MEDICARE, OTHER ==
[~2017-02-11] MED LIST changes: +PROB1TAB PO
[2017-02-11 13:54] LABS: MEAN CORPUSCULAR HEMOGLOBIN 29.6 pg (27.0-33.0); MEAN CORPUSCULAR HGB CONC 31.7 g/dl (32.0-36.5); MEAN CORPUSCULAR VOLUME 93.5 fl (80.0-96.0); PLATELET COUNT, AUTOMATED 199 10^3/uL (150-450); RED CELL DISTRIBUTION WIDTH 13.9 % (11.5-14.5); WHITE BLOOD COUNT 7.4 10^3/uL (4.0-10.0)
[2017-02-11 14:12] LABS: ALBUMIN 3.8 GM/DL (3.2-5.2); ALBUMIN/GLOBULIN RATIO 1.09 (1.00-1.93); BILIRUBIN,TOTAL 0.6 MG/DL (0.2-1.0); CALCIUM LEVEL 9.5 MG/DL (8.8-10.2); CREATININE FOR GFR 0.97 MG/DL (0.55-1.02); FREE T4 1.03 NG/DL (0.76-1.46); GLOMERULAR FILTRATION RATE 57.7 (>32); MAGNESIUM LEVEL 2.4 MG/DL (1.8-2.4); POTASSIUM SERUM 4.3 MEQ/L (3.5-5.1); TOTAL PROTEIN 7.3 GM/DL (6.4-8.2)
== END ==
LOC: M SFHCPLAZ 10:48
PROVIDERS: ATTEND Family Medicine
DX: K52.89 Other specified noninfective gastroenteritis and colitis (principal); F43.22 Adjustment disorder with anxiety; I50.9 Heart failure, unspecified; I25.10 Atherosclerotic heart disease of native coronary artery without angina pectoris
CPT/HCPCS: 36415; 80053; 80061; 83735; 84439; 84443; 85027; G0463

== ENCOUNTER → 2017-03-04 | Outpatient (REF) | payer MEDICARE, OTHER ==
[2017-03-04 14:12] LABS: BASO # 0.1 10^3/uL (0.0-0.2); BASO % 0.4 % (0.0-1.0); IMMATURE GRANULOCYTE % 0.3 % (0-0); LYMPH % 8.6 % (24.0-44.0); MEAN CORPUSCULAR HEMOGLOBIN 30.2 pg (27.0-33.0); MEAN CORPUSCULAR HGB CONC 32.8 g/dl (32.0-36.5); MEAN CORPUSCULAR VOLUME 92.3 fl (80.0-96.0); MONO # 0.9 10^3/uL (0.0-0.8); MONO % 7.8 % (0.0-5.0); NEUTROPHILS # 9.7 10^3/uL (1.8-7.7); NEUTROPHILS % 82.9 % (36.0-66.0); PLATELET COUNT, AUTOMATED 175 10^3/uL (150-450); RED CELL DISTRIBUTION WIDTH 13.9 % (11.5-14.5); WHITE BLOOD COUNT 11.8 10^3/uL (4.0-10.0)
[2017-03-04 14:38] LABS: ERYTHROCYTE SEDIMENTATION RATE 6 mm/hr (0-42)
== END ==
LOC: M SFHCPLAZ 13:34
PROVIDERS: ATTEND Family Medicine
DX: R10.32 Left lower quadrant pain (principal)

== ENCOUNTER 2017-03-07 10:27 | Inpatient (IN) | payer MEDICARE, OTHER ==
[2017-03-07] MEDS ORDERED: **NOTE PATIENT COMMENT** MISC XX (13:00)
[2017-03-07 13:58] LABS: INR 1.07
[2017-03-07 13:59] LABS: PARTIAL THROMBOPLASTIN TIME 26.5 SECONDS (26.8-37.9)
[2017-03-07] MEDS: PIPERACILLIN/TAZOBACTAM SOD 3.375 GM in APPROPRIATE DILUENT 1 EA IV ×2 (16:23→21:45)
[2017-03-07] MEDS: ATORVASTATIN 20 MG TAB PO (18:21)
[2017-03-07] MEDS: ENOXAPARIN 40 MG/0.4 ML SYRINGE (J1650) SC (18:22)
[2017-03-07 20:43] LABS: BASO % 0.6 % (0.0-1.0); EOS % 0.4 % (0.0-3.0); HEMATOCRIT 36.5 % (36.0-47.0); HEMOGLOBIN 11.8 g/dl (12.0-16.0); LYMPH % 19.9 % (24.0-44.0); MEAN CORPUSCULAR HGB CONC 32.3 g/dl (32.0-36.5); MEAN CORPUSCULAR VOLUME 92.9 fl (80.0-96.0); MONO # 0.5 10^3/uL (0.0-0.8); NEUTROPHILS # 3.7 10^3/uL (1.8-7.7); NEUTROPHILS % 70.1 % (36.0-66.0); PLATELET COUNT, AUTOMATED 190 10^3/uL (150-450); RED BLOOD COUNT 3.93 10^6/uL (4.00-5.40); RED CELL DISTRIBUTION WIDTH 13.5 % (11.5-14.5); WHITE BLOOD COUNT 5.2 10^3/uL (4.0-10.0)
[2017-03-07 20:55] LABS: ALBUMIN 3.2 GM/DL (3.2-5.2); ALBUMIN/GLOBULIN RATIO 1.14 (1.00-1.93); ALKALINE PHOSPHATASE 28 U/L (45-117); ALT/SGPT 16 U/L (12-78); ANION GAP 7 MEQ/L (8-16); AST/SGOT 22 U/L (7-37); BILIRUBIN,TOTAL 0.4 MG/DL (0.2-1.0); BLOOD UREA NITROGEN 12 MG/DL (7-18); CALCIUM LEVEL 8.4 MG/DL (8.8-10.2); CARBON DIOXIDE LEVEL 29 MEQ/L (21-32); CHLORIDE LEVEL 107 MEQ/L (98-107); CREATININE FOR GFR 1.01 MG/DL (0.55-1.02); GLOMERULAR FILTRATION RATE 55.1 (>32); GLUCOSE, FASTING 143 MG/DL (83-110); POTASSIUM SERUM 3.6 MEQ/L (3.5-5.1); SODIUM LEVEL 143 MEQ/L (136-145)
[2017-03-08] MEDS: PIPERACILLIN/TAZOBACTAM SOD 3.375 GM in APPROPRIATE DILUENT 1 EA IV ×3 (05:18→21:51)
[2017-03-08 07:07] LABS: HEMATOCRIT 40.5 % (36.0-47.0); HEMOGLOBIN 13.4 g/dl (12.0-16.0); MEAN CORPUSCULAR HGB CONC 33.1 g/dl (32.0-36.5); MEAN CORPUSCULAR VOLUME 90.6 fl (80.0-96.0); PLATELET COUNT, AUTOMATED 183 10^3/uL (150-450); RED BLOOD COUNT 4.47 10^6/uL (4.00-5.40); RED CELL DISTRIBUTION WIDTH 13.6 % (11.5-14.5); WHITE BLOOD COUNT 4.8 10^3/uL (4.0-10.0)
[2017-03-08 07:27] LABS: ANION GAP 6 MEQ/L (8-16); BLOOD UREA NITROGEN 10 MG/DL (7-18); CALCIUM LEVEL 8.8 MG/DL (8.8-10.2); CARBON DIOXIDE LEVEL 30 MEQ/L (21-32); CHLORIDE LEVEL 106 MEQ/L (98-107); CREATININE FOR GFR 0.89 MG/DL (0.55-1.02); GLOMERULAR FILTRATION RATE > 60.0 (>32); GLUCOSE, FASTING 87 MG/DL (83-110); POTASSIUM SERUM 3.6 MEQ/L (3.5-5.1); SODIUM LEVEL 142 MEQ/L (136-145)
[2017-03-08] MEDS: BUDESONIDE EC 3 MG CAP (ENTOCORT EC) PO (08:34)
[2017-03-08] MEDS: ASPIRIN 81 MG ENTERIC TAB PO (08:34)
[2017-03-08] MEDS: TAMOXIFEN CITRATE 10 MG TAB PO (08:34)
[2017-03-08] MEDS: OXYTROL TOP (13:42)
[2017-03-08] MEDS: ATORVASTATIN 20 MG TAB PO (17:28)
[2017-03-08] MEDS: ENOXAPARIN 40 MG/0.4 ML SYRINGE (J1650) SC (17:28)
[2017-03-09] MEDS: PIPERACILLIN/TAZOBACTAM SOD 3.375 GM in APPROPRIATE DILUENT 1 EA IV ×3 (05:35→21:49)
[2017-03-09] MEDS: LISINOPRIL 10 MG TAB PO (06:56)
[2017-03-09 06:59] LABS: HEMATOCRIT 40.5 % (36.0-47.0); HEMOGLOBIN 13.1 g/dl (12.0-16.0); MEAN CORPUSCULAR HEMOGLOBIN 29.8 pg (27.0-33.0); MEAN CORPUSCULAR HGB CONC 32.3 g/dl (32.0-36.5); PLATELET COUNT, AUTOMATED 153 10^3/uL (150-450); RED CELL DISTRIBUTION WIDTH 13.5 % (11.5-14.5)
[2017-03-09 07:18] LABS: ANION GAP 7 MEQ/L (8-16); BLOOD UREA NITROGEN 7 MG/DL (7-18); CALCIUM LEVEL 8.9 MG/DL (8.8-10.2); CARBON DIOXIDE LEVEL 29 MEQ/L (21-32); CHLORIDE LEVEL 107 MEQ/L (98-107); CREATININE FOR GFR 0.91 MG/DL (0.55-1.02); GLOMERULAR FILTRATION RATE > 60.0 (>32); GLUCOSE, FASTING 82 MG/DL (83-110); POTASSIUM SERUM 3.1 MEQ/L (3.5-5.1); SODIUM LEVEL 143 MEQ/L (136-145)
[2017-03-09] MEDS: TAMOXIFEN CITRATE 10 MG TAB PO (08:47)
[2017-03-09] MEDS: BUDESONIDE EC 3 MG CAP (ENTOCORT EC) PO (08:47)
[2017-03-09] MEDS: POTASSIUM CHLORIDE 10 MEQ SR TABLET PO (08:47)
[2017-03-09] MEDS: ASPIRIN 81 MG ENTERIC TAB PO (08:47)
[2017-03-09] MEDS: ATORVASTATIN 20 MG TAB PO (17:27)
[2017-03-09] MEDS: ENOXAPARIN 40 MG/0.4 ML SYRINGE (J1650) SC (17:27)
[2017-03-10] MEDS: PIPERACILLIN/TAZOBACTAM SOD 3.375 GM in APPROPRIATE DILUENT 1 EA IV ×3 (05:52→22:42)
[2017-03-10 07:08] LABS: HEMATOCRIT 38.9 % (36.0-47.0); HEMOGLOBIN 12.6 g/dl (12.0-16.0); MEAN CORPUSCULAR HEMOGLOBIN 29.4 pg (27.0-33.0); MEAN CORPUSCULAR HGB CONC 32.4 g/dl (32.0-36.5); MEAN CORPUSCULAR VOLUME 90.7 fl (80.0-96.0); PLATELET COUNT, AUTOMATED 151 10^3/uL (150-450); RED BLOOD COUNT 4.29 10^6/uL (4.00-5.40); RED CELL DISTRIBUTION WIDTH 13.6 % (11.5-14.5); WHITE BLOOD COUNT 8.2 10^3/uL (4.0-10.0)
[2017-03-10 07:28] LABS: ANION GAP 6 MEQ/L (8-16); BLOOD UREA NITROGEN 13 MG/DL (7-18); CALCIUM LEVEL 8.8 MG/DL (8.8-10.2); CARBON DIOXIDE LEVEL 28 MEQ/L (21-32); CHLORIDE LEVEL 108 MEQ/L (98-107); CREATININE FOR GFR 0.91 MG/DL (0.55-1.02); GLOMERULAR FILTRATION RATE > 60.0 (>32); GLUCOSE, FASTING 84 MG/DL (83-110); POTASSIUM SERUM 3.6 MEQ/L (3.5-5.1); SODIUM LEVEL 142 MEQ/L (136-145)
[2017-03-10] MEDS: TAMOXIFEN CITRATE 10 MG TAB PO (09:27)
[2017-03-10] MEDS: ASPIRIN 81 MG ENTERIC TAB PO (09:27)
[2017-03-10] MEDS: BUDESONIDE EC 3 MG CAP (ENTOCORT EC) PO (09:27)
[2017-03-10] MEDS: LISINOPRIL 10 MG TAB PO (09:27)
[2017-03-10] MEDS: ENOXAPARIN 40 MG/0.4 ML SYRINGE (J1650) SC (18:00)
[2017-03-10] MEDS: ATORVASTATIN 20 MG TAB PO (18:00)
[2017-03-11] MEDS: PIPERACILLIN/TAZOBACTAM SOD 3.375 GM in APPROPRIATE DILUENT 1 EA IV ×3 (05:12→22:05)
[2017-03-11 06:39] LABS: HEMATOCRIT 34.4 % (36.0-47.0); HEMOGLOBIN 11.4 g/dl (12.0-16.0); MEAN CORPUSCULAR HEMOGLOBIN 30.1 pg (27.0-33.0); MEAN CORPUSCULAR HGB CONC 33.1 g/dl (32.0-36.5); MEAN CORPUSCULAR VOLUME 90.8 fl (80.0-96.0); PLATELET COUNT, AUTOMATED 155 10^3/uL (150-450); RED BLOOD COUNT 3.79 10^6/uL (4.00-5.40); RED CELL DISTRIBUTION WIDTH 13.5 % (11.5-14.5); WHITE BLOOD COUNT 13.7 10^3/uL (4.0-10.0)
[2017-03-11 06:54] LABS: ANION GAP 7 MEQ/L (8-16); BLOOD UREA NITROGEN 12 MG/DL (7-18); CALCIUM LEVEL 8.4 MG/DL (8.8-10.2); CARBON DIOXIDE LEVEL 27 MEQ/L (21-32); CHLORIDE LEVEL 107 MEQ/L (98-107); CREATININE FOR GFR 0.91 MG/DL (0.55-1.02); GLOMERULAR FILTRATION RATE > 60.0 (>32); GLUCOSE, FASTING 105 MG/DL (83-110); SODIUM LEVEL 141 MEQ/L (136-145)
[2017-03-11] MEDS: TAMOXIFEN CITRATE 10 MG TAB PO (08:33)
[2017-03-11] MEDS: ASPIRIN 81 MG ENTERIC TAB PO (08:33)
[2017-03-11] MEDS: LISINOPRIL 10 MG TAB PO (08:33)
[2017-03-11] MEDS: BUDESONIDE EC 3 MG CAP (ENTOCORT EC) PO (08:33)
[2017-03-11] MEDS: GASTROGRAFIN SOLUTION 30ML (Q9963) PO (14:58)
[2017-03-11] MEDS: GASTROGRAFIN SOLUTION 30ML PO (14:59)
[2017-03-11] MEDS ORDERED: ISOVUE-370 76% 100ML VIAL (Q9967) As Ordered (16:03)
[2017-03-11] MEDS: POTASSIUM CHLORIDE 10 MEQ SR TABLET PO (17:00)
[2017-03-11] MEDS: ATORVASTATIN 20 MG TAB PO (17:00)
[2017-03-11] MEDS: KCL 10MEQ IN 100ML SWI (KRUN) 10 MEQ in APPROPRIATE DILUENT 1 EA IV (17:01)
[2017-03-11] MEDS: ENOXAPARIN 40 MG/0.4 ML SYRINGE (J1650) SC (17:01)
[2017-03-11] MEDS: NYSTATIN 500,000 U/5 ML SUSP UDC SS (22:05)
[2017-03-12] MEDS: PIPERACILLIN/TAZOBACTAM SOD 3.375 GM in APPROPRIATE DILUENT 1 EA IV ×3 (05:00→21:45)
[2017-03-12 06:34] LABS: HEMATOCRIT 35.3 % (36.0-47.0); HEMOGLOBIN 11.6 g/dl (12.0-16.0); MEAN CORPUSCULAR HEMOGLOBIN 29.8 pg (27.0-33.0); MEAN CORPUSCULAR HGB CONC 32.9 g/dl (32.0-36.5); MEAN CORPUSCULAR VOLUME 90.7 fl (80.0-96.0); PLATELET COUNT, AUTOMATED 161 10^3/uL (150-450); RED BLOOD COUNT 3.89 10^6/uL (4.00-5.40); RED CELL DISTRIBUTION WIDTH 13.7 % (11.5-14.5); WHITE BLOOD COUNT 9.4 10^3/uL (4.0-10.0)
[2017-03-12 07:05] LABS: ANION GAP 9 MEQ/L (8-16); BLOOD UREA NITROGEN 11 MG/DL (7-18); CALCIUM LEVEL 8.6 MG/DL (8.8-10.2); CARBON DIOXIDE LEVEL 26 MEQ/L (21-32); CHLORIDE LEVEL 108 MEQ/L (98-107); CREATININE FOR GFR 0.86 MG/DL (0.55-1.02); GLOMERULAR FILTRATION RATE > 60.0 (>32); GLUCOSE, FASTING 88 MG/DL (83-110); POTASSIUM SERUM 3.1 MEQ/L (3.5-5.1); SODIUM LEVEL 143 MEQ/L (136-145)
[2017-03-12] MEDS: TAMOXIFEN CITRATE 10 MG TAB PO (09:00)
[2017-03-12] MEDS: NYSTATIN 500,000 U/5 ML SUSP UDC SS ×4 (09:00→21:45)
[2017-03-12] MEDS: BUDESONIDE EC 3 MG CAP (ENTOCORT EC) PO (09:00)
[2017-03-12] MEDS: POTASSIUM CHLORIDE 10 MEQ SR TABLET PO ×2 (09:00→21:45)
[2017-03-12] MEDS: LISINOPRIL 10 MG TAB PO (09:00)
[2017-03-12] MEDS: metroNIDAZOLE 500 MG in APPROPRIATE DILUENT 1 EA IV (09:00)
[2017-03-12] MEDS: OXYTROL TOP (09:00)
[2017-03-12] MEDS: ASPIRIN 81 MG ENTERIC TAB PO (09:00)
[2017-03-12] MEDS: VANCOMYCIN ORAL SOL 250MG/5ML ORAL SYRINGE PO ×3 (12:00→23:07)
[2017-03-12] MEDS: ATORVASTATIN 20 MG TAB PO (17:52)
[2017-03-12] MEDS: ENOXAPARIN 40 MG/0.4 ML SYRINGE (J1650) SC (17:57)
[2017-03-13] MEDS: VANCOMYCIN ORAL SOL 250MG/5ML ORAL SYRINGE PO ×4 (05:11→23:35)
[2017-03-13] MEDS: PIPERACILLIN/TAZOBACTAM SOD 3.375 GM in APPROPRIATE DILUENT 1 EA IV ×2 (05:11→14:00)
[2017-03-13 06:51] LABS: HEMATOCRIT 35.8 % (36.0-47.0); HEMOGLOBIN 11.8 g/dl (12.0-16.0); MEAN CORPUSCULAR HEMOGLOBIN 29.7 pg (27.0-33.0); MEAN CORPUSCULAR VOLUME 90.2 fl (80.0-96.0); PLATELET COUNT, AUTOMATED 187 10^3/uL (150-450); RED BLOOD COUNT 3.97 10^6/uL (4.00-5.40); RED CELL DISTRIBUTION WIDTH 13.5 % (11.5-14.5); WHITE BLOOD COUNT 7.8 10^3/uL (4.0-10.0)
[2017-03-13 07:13] LABS: ANION GAP 10 MEQ/L (8-16); BLOOD UREA NITROGEN 11 MG/DL (7-18); CALCIUM LEVEL 8.6 MG/DL (8.8-10.2); CARBON DIOXIDE LEVEL 26 MEQ/L (21-32); CHLORIDE LEVEL 107 MEQ/L (98-107); CREATININE FOR GFR 0.91 MG/DL (0.55-1.02); GLOMERULAR FILTRATION RATE > 60.0 (>32); GLUCOSE, FASTING 84 MG/DL (83-110); POTASSIUM SERUM 3.2 MEQ/L (3.5-5.1); SODIUM LEVEL 143 MEQ/L (136-145)
[2017-03-13] MEDS: TAMOXIFEN CITRATE 10 MG TAB PO (10:41)
[2017-03-13] MEDS: BUDESONIDE EC 3 MG CAP (ENTOCORT EC) PO (10:41)
[2017-03-13] MEDS: NYSTATIN 500,000 U/5 ML SUSP UDC SS ×4 (10:41→20:56)
[2017-03-13] MEDS: POTASSIUM CHLORIDE 10 MEQ SR TABLET PO ×2 (10:42→20:56)
[2017-03-13] MEDS: ASPIRIN 81 MG ENTERIC TAB PO (10:42)
[2017-03-13] MEDS: LISINOPRIL 10 MG TAB PO (10:42)
[2017-03-13] MEDS: ENOXAPARIN 40 MG/0.4 ML SYRINGE (J1650) SC (18:00)
[2017-03-13] MEDS: ATORVASTATIN 20 MG TAB PO (18:14)
[2017-03-14] MEDS: VANCOMYCIN ORAL SOL 250MG/5ML ORAL SYRINGE PO ×4 (05:50→23:03)
[2017-03-14 07:09] LABS: HEMATOCRIT 36.2 % (36.0-47.0); HEMOGLOBIN 11.5 g/dl (12.0-16.0); MEAN CORPUSCULAR HEMOGLOBIN 28.9 pg (27.0-33.0); MEAN CORPUSCULAR HGB CONC 31.8 g/dl (32.0-36.5); PLATELET COUNT, AUTOMATED 209 10^3/uL (150-450); RED BLOOD COUNT 3.98 10^6/uL (4.00-5.40); RED CELL DISTRIBUTION WIDTH 13.4 % (11.5-14.5)
[2017-03-14 07:43] LABS: ANION GAP 7 MEQ/L (8-16); BLOOD UREA NITROGEN 12 MG/DL (7-18); CALCIUM LEVEL 8.7 MG/DL (8.8-10.2); CARBON DIOXIDE LEVEL 27 MEQ/L (21-32); CHLORIDE LEVEL 108 MEQ/L (98-107); CREATININE FOR GFR 0.79 MG/DL (0.55-1.02); GLOMERULAR FILTRATION RATE > 60.0 (>32); GLUCOSE, FASTING 78 MG/DL (83-110); POTASSIUM SERUM 3.2 MEQ/L (3.5-5.1); SODIUM LEVEL 142 MEQ/L (136-145)
[2017-03-14] MEDS: BUDESONIDE EC 3 MG CAP (ENTOCORT EC) PO (09:32)
[2017-03-14] MEDS: NYSTATIN 500,000 U/5 ML SUSP UDC SS ×4 (09:32→20:14)
[2017-03-14] MEDS: LISINOPRIL 10 MG TAB PO (09:33)
[2017-03-14] MEDS: ASPIRIN 81 MG ENTERIC TAB PO (09:33)
[2017-03-14] MEDS: TAMOXIFEN CITRATE 10 MG TAB PO (09:33)
[2017-03-14] MEDS: POTASSIUM CHLORIDE 10 MEQ SR TABLET PO ×3 (09:33→20:14)
[2017-03-14] MEDS: ONDANSETRON 4 MG ORAL DISINTEGRATING TAB (S0181) SL ×3 (11:12→23:02)
[2017-03-14] MEDS: ATORVASTATIN 20 MG TAB PO (17:17)
[2017-03-14] MEDS: ENOXAPARIN 40 MG/0.4 ML SYRINGE (J1650) SC (17:17)
[2017-03-15] MEDS: VANCOMYCIN ORAL SOL 250MG/5ML ORAL SYRINGE PO ×3 (05:39→17:22)
[2017-03-15] MEDS: ONDANSETRON 4 MG ORAL DISINTEGRATING TAB (S0181) SL ×4 (05:39→23:38)
[2017-03-15] MEDS: TAMOXIFEN CITRATE 10 MG TAB PO (08:52)
[2017-03-15] MEDS: BUDESONIDE EC 3 MG CAP (ENTOCORT EC) PO (08:52)
[2017-03-15] MEDS: NYSTATIN 500,000 U/5 ML SUSP UDC SS ×4 (08:52→20:55)
[2017-03-15] MEDS: ASPIRIN 81 MG ENTERIC TAB PO (08:53)
[2017-03-15] MEDS: POTASSIUM CHLORIDE 10 MEQ SR TABLET PO ×3 (08:53→20:55)
[2017-03-15] MEDS: LISINOPRIL 10 MG TAB PO (08:53)
[2017-03-15] MEDS: ATORVASTATIN 20 MG TAB PO (17:21)
[2017-03-15] MEDS: ENOXAPARIN 40 MG/0.4 ML SYRINGE (J1650) SC (17:22)
[2017-03-16] MEDS: VANCOMYCIN ORAL SOL 250MG/5ML ORAL SYRINGE PO ×5 (00:18→23:27)
[2017-03-16] MEDS: ONDANSETRON 4 MG ORAL DISINTEGRATING TAB (S0181) SL ×3 (05:59→17:26)
[2017-03-16 06:10] LABS: BASO % 0.6 % (0.0-1.0); EOS # 0.1 10^3/uL (0.0-0.50); EOS % 1.2 % (0.0-3.0); HEMATOCRIT 32.7 % (36.0-47.0); HEMOGLOBIN 10.7 g/dl (12.0-16.0); IMMATURE GRANULOCYTE % 0.5 % (0-0); LYMPH # 1.3 10^3/uL (1.5-4.5); LYMPH % 19.5 % (24.0-44.0); MEAN CORPUSCULAR HEMOGLOBIN 29.6 pg (27.0-33.0); MEAN CORPUSCULAR HGB CONC 32.7 g/dl (32.0-36.5); MEAN CORPUSCULAR VOLUME 90.6 fl (80.0-96.0); MONO # 0.8 10^3/uL (0.0-0.8); MONO % 11.9 % (0.0-5.0); NEUTROPHILS # 4.3 10^3/uL (1.8-7.7); NEUTROPHILS % 66.3 % (36.0-66.0); PLATELET COUNT, AUTOMATED 175 10^3/uL (150-450); RED BLOOD COUNT 3.61 10^6/uL (4.00-5.40); RED CELL DISTRIBUTION WIDTH 13.2 % (11.5-14.5); WHITE BLOOD COUNT 6.5 10^3/uL (4.0-10.0)
[2017-03-16 06:36] LABS: ALKALINE PHOSPHATASE 27 U/L (45-117); ALT/SGPT 10 U/L (12-78); ANION GAP 5 MEQ/L (8-16); AST/SGOT 14 U/L (7-37); BLOOD UREA NITROGEN 12 MG/DL (7-18); CALCIUM LEVEL 8.7 MG/DL (8.8-10.2); CARBON DIOXIDE LEVEL 30 MEQ/L (21-32); CHLORIDE LEVEL 108 MEQ/L (98-107); CREATININE FOR GFR 0.87 MG/DL (0.55-1.02); GLOMERULAR FILTRATION RATE > 60.0 (>32); GLUCOSE, FASTING 85 MG/DL (83-110); POTASSIUM SERUM 3.9 MEQ/L (3.5-5.1); SODIUM LEVEL 143 MEQ/L (136-145)
[2017-03-16 06:37] LABS: ALBUMIN 2.3 GM/DL (3.2-5.2); ALBUMIN/GLOBULIN RATIO 0.68 (1.00-1.93); BILIRUBIN,TOTAL 0.4 MG/DL (0.2-1.0); TOTAL PROTEIN 5.7 GM/DL (6.4-8.2)
[2017-03-16] MEDS: NYSTATIN 500,000 U/5 ML SUSP UDC SS ×4 (08:47→20:29)
[2017-03-16] MEDS: TAMOXIFEN CITRATE 10 MG TAB PO (08:48)
[2017-03-16] MEDS: BUDESONIDE EC 3 MG CAP (ENTOCORT EC) PO (08:48)
[2017-03-16] MEDS: POTASSIUM CHLORIDE 10 MEQ SR TABLET PO ×2 (08:49→20:30)
[2017-03-16] MEDS: ASPIRIN 81 MG ENTERIC TAB PO (08:50)
[2017-03-16] MEDS: LISINOPRIL 10 MG TAB PO (08:50)
[2017-03-16] MEDS: OXYTROL TOP (08:52)
[2017-03-16] MEDS: AUGMENTIN 500 MG TAB PO ×2 (13:54→20:30)
[2017-03-16] MEDS: ENOXAPARIN 40 MG/0.4 ML SYRINGE (J1650) SC (17:26)
[2017-03-16] MEDS: ATORVASTATIN 20 MG TAB PO (17:26)
[2017-03-17] MEDS: VANCOMYCIN ORAL SOL 250MG/5ML ORAL SYRINGE PO ×2 (05:36→12:44)
[2017-03-17 07:13] LABS: BASO # 0.1 10^3/uL (0.0-0.2); BASO % 0.9 % (0.0-1.0); EOS # 0.1 10^3/uL (0.0-0.50); EOS % 2.3 % (0.0-3.0); HEMATOCRIT 34.5 % (36.0-47.0); HEMOGLOBIN 11.1 g/dl (12.0-16.0); IMMATURE GRANULOCYTE % 0.5 % (0-0); LYMPH # 1.3 10^3/uL (1.5-4.5); MEAN CORPUSCULAR HEMOGLOBIN 29.4 pg (27.0-33.0); MEAN CORPUSCULAR HGB CONC 32.2 g/dl (32.0-36.5); MEAN CORPUSCULAR VOLUME 91.3 fl (80.0-96.0); MONO # 0.7 10^3/uL (0.0-0.8); MONO % 12.7 % (0.0-5.0); NEUTROPHILS # 3.4 10^3/uL (1.8-7.7); NEUTROPHILS % 60.6 % (36.0-66.0); PLATELET COUNT, AUTOMATED 209 10^3/uL (150-450); RED BLOOD COUNT 3.78 10^6/uL (4.00-5.40); RED CELL DISTRIBUTION WIDTH 13.3 % (11.5-14.5); WHITE BLOOD COUNT 5.6 10^3/uL (4.0-10.0)
[2017-03-17 07:31] LABS: ALBUMIN 2.5 GM/DL (3.2-5.2); ALBUMIN/GLOBULIN RATIO 0.69 (1.00-1.93); ALKALINE PHOSPHATASE 31 U/L (45-117); ALT/SGPT 11 U/L (12-78); ANION GAP 6 MEQ/L (8-16); AST/SGOT 17 U/L (7-37); BILIRUBIN,TOTAL 0.3 MG/DL (0.2-1.0); BLOOD UREA NITROGEN 14 MG/DL (7-18); CALCIUM LEVEL 9.1 MG/DL (8.8-10.2); CARBON DIOXIDE LEVEL 30 MEQ/L (21-32); CHLORIDE LEVEL 107 MEQ/L (98-107); CREATININE FOR GFR 0.91 MG/DL (0.55-1.02); GLOMERULAR FILTRATION RATE > 60.0 (>32); GLUCOSE, FASTING 86 MG/DL (83-110); POTASSIUM SERUM 3.9 MEQ/L (3.5-5.1); SODIUM LEVEL 143 MEQ/L (136-145); TOTAL PROTEIN 6.1 GM/DL (6.4-8.2)
[2017-03-17] MEDS: LISINOPRIL 10 MG TAB PO (08:02)
[2017-03-17] MEDS: AUGMENTIN 500 MG TAB PO (08:02)
[2017-03-17] MEDS: TAMOXIFEN CITRATE 10 MG TAB PO (08:02)
[2017-03-17] MEDS: POTASSIUM CHLORIDE 10 MEQ SR TABLET PO (08:02)
[2017-03-17] MEDS: NYSTATIN 500,000 U/5 ML SUSP UDC SS ×2 (08:02→12:44)
[2017-03-17] MEDS: BUDESONIDE EC 3 MG CAP (ENTOCORT EC) PO (08:02)
[2017-03-17] MEDS: OXYTROL TOP (08:03)
[2017-03-17] MEDS: ASPIRIN 81 MG ENTERIC TAB PO (08:03)
[2017-03-17] MEDS: ONDANSETRON 4 MG ORAL DISINTEGRATING TAB (S0181) SL (11:33)
== END 2017-03-17 13:15 | disposition home or self-care (01) | DRG 392 ==
LOC: M MS5PR 10:27
DX: K57.92 Diverticulitis of intestine, part unspecified, without perforation or abscess without bleeding (principal); A04.72 Enterocolitis due to Clostridium difficile, not specified as recurrent; K52.831 Collagenous colitis; I50.9 Heart failure, unspecified; I25.10 Atherosclerotic heart disease of native coronary artery without angina pectoris; E78.5 Hyperlipidemia, unspecified; I11.0 Hypertensive heart disease with heart failure; Z88.2 Allergy status to sulfonamides; Z88.1 Allergy status to other antibiotic agents; Z79.810 Long term (current) use of selective estrogen receptor modulators (SERMs); Z79.82 Long term (current) use of aspirin; Z79.01 Long term (current) use of anticoagulants; Z85.3 Personal history of malignant neoplasm of breast; Z92.3 Personal history of irradiation

== ENCOUNTER → 2017-03-22 | Outpatient (REF) | payer MEDICARE, OTHER ==
[2017-03-22 13:22] LABS: BASO # 0.1 10^3/uL (0.0-0.2); BASO % 0.7 % (0.0-1.0); EOS % 0.4 % (0.0-3.0); HEMATOCRIT 37.6 % (36.0-47.0); IMMATURE GRANULOCYTE % 0.4 % (0-0); LYMPH % 10.1 % (24.0-44.0); MEAN CORPUSCULAR HEMOGLOBIN 29.2 pg (27.0-33.0); MEAN CORPUSCULAR HGB CONC 31.9 g/dl (32.0-36.5); MEAN CORPUSCULAR VOLUME 91.5 fl (80.0-96.0); MONO # 0.6 10^3/uL (0.0-0.8); MONO % 6.6 % (0.0-5.0); NEUTROPHILS # 7.7 10^3/uL (1.8-7.7); NEUTROPHILS % 81.8 % (36.0-66.0); PLATELET COUNT, AUTOMATED 279 10^3/uL (150-450); RED BLOOD COUNT 4.11 10^6/uL (4.00-5.40); RED CELL DISTRIBUTION WIDTH 13.3 % (11.5-14.5); WHITE BLOOD COUNT 9.4 10^3/uL (4.0-10.0)
[2017-03-22 13:42] LABS: ERYTHROCYTE SEDIMENTATION RATE 21 mm/hr (0-42)
[2017-03-22 14:06] LABS: C REACTIVE PROTEIN QUANTITATIV < 0.30 MG/DL (0.00-0.30)
== END ==
LOC: M SFHCPLAZ 10:52
DX: A04.72 Enterocolitis due to Clostridium difficile, not specified as recurrent (principal); K57.92 Diverticulitis of intestine, part unspecified, without perforation or abscess without bleeding
CPT/HCPCS: 86140

== ENCOUNTER → 2017-04-12 | Outpatient (REF) | payer MEDICARE, OTHER ==
[2017-04-12 19:31] LABS: C REACTIVE PROTEIN QUANTITATIV 0.43 MG/DL (0.00-0.30)
[2017-04-12 20:11] LABS: BASO # 0.1 10^3/uL (0.0-0.2); BASO % 1.2 % (0.0-1.0); EOS # 0.1 10^3/uL (0.0-0.50); HEMATOCRIT 36.5 % (36.0-47.0); HEMOGLOBIN 11.6 g/dl (12.0-16.0); IMMATURE GRANULOCYTE % 0.2 % (0-0); LYMPH # 1.2 10^3/uL (1.5-4.5); LYMPH % 19.6 % (24.0-44.0); MEAN CORPUSCULAR HEMOGLOBIN 28.7 pg (27.0-33.0); MEAN CORPUSCULAR HGB CONC 31.8 g/dl (32.0-36.5); MEAN CORPUSCULAR VOLUME 90.3 fl (80.0-96.0); MONO # 0.8 10^3/uL (0.0-0.8); MONO % 13.6 % (0.0-5.0); NEUTROPHILS # 3.7 10^3/uL (1.8-7.7); NEUTROPHILS % 63.4 % (36.0-66.0); PLATELET COUNT, AUTOMATED 220 10^3/uL (150-450); RED BLOOD COUNT 4.04 10^6/uL (4.00-5.40); RED CELL DISTRIBUTION WIDTH 13.2 % (11.5-14.5); WHITE BLOOD COUNT 5.9 10^3/uL (4.0-10.0)
[2017-04-12 21:43] LABS: ERYTHROCYTE SEDIMENTATION RATE 20 mm/hr (0-42)
== END ==
LOC: M SFHCPLAZ 16:15
DX: R19.7 Diarrhea, unspecified (principal)
CPT/HCPCS: 86140

== ENCOUNTER → 2017-04-25 | Outpatient (REF) | payer MEDICARE, OTHER | LOC: M SFHCADAM 15:57 | DX: A04.72 Enterocolitis due to Clostridium difficile, not specified as recurrent (principal) | CPT/HCPCS: 87493 ==

== ENCOUNTER 2017-05-01 10:52 | Inpatient (IN) | payer MEDICARE, OTHER ==
[~2017-05-01 10:52] MED LIST changes: -/ONDA4TA OR; -/PANT40TA OR; -/PANT40TA PO; -ACET-683 PO; -ACET1TAB17 PO; -ACET500L PO; -ACET50TAOT PO; -ACET65TA OR; -ALBU17IN INH; -AMOX500T2 PO; -AMOX875T2 PO; -AQUAOIN2 TOP; -ASPI81TA83 OR; -ASPI81TA85 PO; -ATEN50TA2 OR; -ATOR40TA75 PO; -AUGM875T28 PO; -BACITAB OR; -BACITAB PO; -BOOSLIQ PO; -BUDE3CAP PO; -CALCCHW12 OR; -CALCTAB9 OR; -CALTRATE 600 + D PO; -CALTTAB11 PO; -CENTTAB PO; -CIPR-249 PO; -CIPRO OR; -CLEO150C PO; -COLA100C5 PO; -DOCU100C16 PO; -DYAZ37.5 OR; +ENOXAPARIN 40 MG/0.4 ML SYRINGE (J1650) SC; -ENSULIQ10 PO; -ENSUPOW PO; -ENTO3CAP5 PO; -FERG1TAB PO; -FLAG500T OR; -FLAG500T PO; -FLEEENE4 PR; -FLUC10TA PO; -FLUTISP; -LASI20TA PO; -LIDO5DIS41 TD; -LIPI10TA OR; -LIPI80TA PO; -LISI10TA4 PO; -LOPR1TAB6 PO; -LORT5TAB PO; -LOVE1INJ SC; -LYRI75CA PO; -MAGN1TAB25 PO; -MAGN250T PO; -MAGO400T PO; -MECL-68 PO; -MECL1CHW2 PO; -MELOPOW OR; -METO1TAB87 PO; -METO25TAB PO; -METR0.00 TOP; -METRONIDAZOLE TD; -MILKSUS PO; -MIRA3350 PO; -MOME50SP; -MULTCAP11 PO; -NYAM10003 EXT; -PERCOCET PO; -POTA10CA PO; -PREG25CA PO; -PROB1TAB PO; -RECL5INJ2 IV; -RECLAST IV IV; -SENO8.6T10 PO; -SENO8.6T5 PO; -SYSTANE EYE DROPS OU; -SYSTSOL11 OU; -TAMO20TA4 PO; -TRIA37.53 PO; -TYLE167L PO; -TYLE500T78 PO; -VALI5TAB PO; -VITA100067 PO; -VITAMIN D OR; -VITMTA PO; -WARF05TA PO; -ZOFR4TAB3 PO; -[UNRECOGNIZED DRUG - CODE] OR; -[UNRECOGNIZED DRUG - CODE] TD; -bactroban TOP
[2017-05-01 11:47] LABS: BASO % 0.2 % (0.0-1.0); HEMATOCRIT 33.2 % (36.0-47.0); IMMATURE GRANULOCYTE % 0.5 % (0-3.0); LYMPH # 0.7 10^3/uL (1.5-4.5); LYMPH % 3.9 % (24.0-44.0); MEAN CORPUSCULAR HEMOGLOBIN 29.3 pg (27.0-33.0); MEAN CORPUSCULAR HGB CONC 33.1 g/dl (32.0-36.5); MEAN CORPUSCULAR VOLUME 88.5 fl (80.0-96.0); MONO # 1.2 10^3/uL (0.0-0.8); MONO % 7.1 % (0.0-5.0); NEUTROPHILS # 14.6 10^3/uL (1.8-7.7); NEUTROPHILS % 88.3 % (36.0-66.0); PLATELET COUNT, AUTOMATED 165 10^3/uL (150-450); RED BLOOD COUNT 3.75 10^6/uL (4.00-5.40); RED CELL DISTRIBUTION WIDTH 13.4 % (11.5-14.5); WHITE BLOOD COUNT 16.6 10^3/uL (4.0-10.0)
[2017-05-01 11:56] LABS: ANION GAP 9 MEQ/L (8-16); BLOOD UREA NITROGEN 17 MG/DL (7-18); CALCIUM LEVEL 8.5 MG/DL (8.8-10.2); CARBON DIOXIDE LEVEL 26 MEQ/L (21-32); CHLORIDE LEVEL 103 MEQ/L (98-107); CPK CREATINE PHOSPHOKINASE 68 U/L (26-192); CREATININE FOR GFR 1.07 MG/DL (0.55-1.30); GLOMERULAR FILTRATION RATE 51.5 (>32); GLUCOSE, FASTING 204 MG/DL (70-100); POTASSIUM SERUM 3.3 MEQ/L (3.5-5.1); SODIUM LEVEL 138 MEQ/L (136-145); TROPONIN I < 0.02 NG/ML (< 0.10)
[2017-05-01 12:02] LABS: CK-MB VALUE MASS 1.1 NG/ML (0.0-3.6); MB/CK RELATIVE INDEX 1.61 (< OR =4); THYROID STIMULATING HORMONE 0.087 uIU/ML (0.358-3.740)
[2017-05-01 12:48] LABS: FREE T4 1.19 NG/DL (0.76-1.46); INFLUENZA A AMPLIFICATION NEGATIVE (NEGATIVE); INFLUENZA B AMPLIFICATION NEGATIVE (NEGATIVE)
[2017-05-01] MEDS: POTASSIUM CHLORIDE 10 MEQ SR TABLET PO (13:30)
[2017-05-01 15:39] LABS: AMORPHOUS SEDIMENT RFX SMALL (NEGATIVE); KETONE, URINE AUTO RFX NEGATIVE (NEGATIVE); MUCUS, URINE RFX SMALL (NEGATIVE); NITRITE, URINE AUTO RFX NEGATIVE (NEGATIVE); RBC, URINE AUTO RFX 9 /HPF (0-3); SPECIFIC GRAVITY UR AUTO RFX 1.013 (1.002-1.035); SQUAM EPITHELIAL CELL UR AURFX 1 /HPF (0-6)
[2017-05-01 15:41] LABS: LEUKOCYTE ESTERASE UR AUTO RFX 3+ (NEGATIVE); WBC, URINE AUTO RFX 26 /HPF (0-3)
[2017-05-01 18:27] LABS: BASO % 0.2 % (0.0-1.0); EOS % 0.2 % (0.0-3.0); HEMATOCRIT 34.6 % (36.0-47.0); HEMOGLOBIN 11.4 g/dl (12.0-16.0); IMMATURE GRANULOCYTE % 0.8 % (0-3.0); LYMPH % 6.2 % (24.0-44.0); MEAN CORPUSCULAR HEMOGLOBIN 29.1 pg (27.0-33.0); MEAN CORPUSCULAR HGB CONC 32.9 g/dl (32.0-36.5); MEAN CORPUSCULAR VOLUME 88.3 fl (80.0-96.0); MONO % 5.8 % (0.0-5.0); NEUTROPHILS # 14.6 10^3/uL (1.8-7.7); NEUTROPHILS % 86.8 % (36.0-66.0); PLATELET COUNT, AUTOMATED 152 10^3/uL (150-450); RED BLOOD COUNT 3.92 10^6/uL (4.00-5.40); RED CELL DISTRIBUTION WIDTH 13.5 % (11.5-14.5); WHITE BLOOD COUNT 16.8 10^3/uL (4.0-10.0)
[2017-05-01] MEDS: FLUTICASONE PROP 0.05% NASAL SPRAY 16 GM (FLONASE) (18:37)
[2017-05-01] MEDS: ENOXAPARIN 30 MG/0.3 ML SYR (J1650) SC (18:38)
[2017-05-01 18:59] LABS: LACTIC ACID SEPSIS PROTOCOL 0.7 MMOL/L (0.4-2.0)
[2017-05-01] MEDS: CEFTRIAXONE SOD 1 GM in APPROPRIATE DILUENT 1 EA IV (20:58)
[2017-05-01] MEDS: SENOKOT S TAB PO (20:59)
[2017-05-01] MEDS: ACETAMINOPHEN TAB 650MG DOSE (2X325MG) PO (21:02)
[2017-05-02] MEDS: ACETAMINOPHEN TAB 650MG DOSE (2X325MG) PO ×3 (03:16→18:53)
[2017-05-02 04:48] LABS: BASO # 0.1 10^3/uL (0.0-0.2); BASO % 0.4 % (0.0-1.0); EOS # 0.4 10^3/uL (0.0-0.50); HEMATOCRIT 31.1 % (36.0-47.0); HEMOGLOBIN 10.2 g/dl (12.0-16.0); IMMATURE GRANULOCYTE % 0.4 % (0-3.0); LYMPH # 1.1 10^3/uL (1.5-4.5); LYMPH % 7.5 % (24.0-44.0); MEAN CORPUSCULAR HEMOGLOBIN 28.7 pg (27.0-33.0); MEAN CORPUSCULAR HGB CONC 32.8 g/dl (32.0-36.5); MEAN CORPUSCULAR VOLUME 87.4 fl (80.0-96.0); MONO # 1.1 10^3/uL (0.0-0.8); MONO % 7.7 % (0.0-5.0); NEUTROPHILS # 11.5 10^3/uL (1.8-7.7); PLATELET COUNT, AUTOMATED 149 10^3/uL (150-450); RED BLOOD COUNT 3.56 10^6/uL (4.00-5.40); RED CELL DISTRIBUTION WIDTH 13.4 % (11.5-14.5); WHITE BLOOD COUNT 14.1 10^3/uL (4.0-10.0)
[2017-05-02 05:17] LABS: ALBUMIN 2.6 GM/DL (3.2-5.2); ALBUMIN/GLOBULIN RATIO 0.81 (1.00-1.93); ALKALINE PHOSPHATASE 33 U/L (45-117); ALT/SGPT 12 U/L (12-78); ANION GAP 8 MEQ/L (8-16); AST/SGOT 16 U/L (7-37); BILIRUBIN,TOTAL 0.6 MG/DL (0.2-1.0); BLOOD UREA NITROGEN 16 MG/DL (7-18); CALCIUM LEVEL 8.3 MG/DL (8.8-10.2); CARBON DIOXIDE LEVEL 25 MEQ/L (21-32); CHLORIDE LEVEL 106 MEQ/L (98-107); GLOMERULAR FILTRATION RATE > 60.0 (>32); GLUCOSE, FASTING 98 MG/DL (70-100); POTASSIUM SERUM 3.6 MEQ/L (3.5-5.1); SODIUM LEVEL 139 MEQ/L (136-145); TOTAL PROTEIN 5.8 GM/DL (6.4-8.2)
[2017-05-02] MEDS: SENOKOT S TAB PO ×2 (09:00→20:09)
[2017-05-02] MEDS: TAMOXIFEN CITRATE 10 MG TAB PO (09:20)
[2017-05-02] MEDS: LISINOPRIL 10 MG TAB PO (09:20)
[2017-05-02] MEDS: ENOXAPARIN 30 MG/0.3 ML SYR (J1650) SC (09:21)
[2017-05-02] MEDS: BUDESONIDE EC 3 MG CAP (ENTOCORT EC) PO (09:22)
[2017-05-02] MEDS: FLUTICASONE PROP 0.05% NASAL SPRAY 16 GM (FLONASE) (09:22)
[2017-05-02] MEDS: VANCOMYCIN ORAL SOL 250MG/5ML ORAL SYRINGE PO ×2 (12:32→17:23)
[2017-05-02 13:01] LABS: CPK CREATINE PHOSPHOKINASE 63 U/L (26-192); MB/CK RELATIVE INDEX 1.58 (< OR =4); TROPONIN I < 0.02 NG/ML (< 0.10)
[2017-05-02] MEDS: POTASSIUM CHLORIDE 10 MEQ SR TABLET PO (13:22)
[2017-05-02] MEDS: METOPROLOL TART 25 MG TABLET PO ×2 (13:23→17:24)
[2017-05-02] MEDS: METOPROLOL 5 MG/5 ML VIAL IV (13:23)
[2017-05-02 13:57] LABS: MAGNESIUM LEVEL 1.8 MG/DL (1.8-2.4)
[2017-05-02 14:06] LABS: CPK CREATINE PHOSPHOKINASE 64 U/L (26-192); TROPONIN I 0.02 NG/ML (< 0.10)
[2017-05-02 14:07] LABS: MB/CK RELATIVE INDEX 1.56 (< OR =4)
[2017-05-02] MEDS: LACTOBACILLUS ACIDOPHILUS CAP (BACID) PO (17:23)
[2017-05-02] MEDS: NS 500 ML IV (20:44)
[2017-05-02 21:29] LABS: ANION GAP 9 MEQ/L (8-16); BLOOD UREA NITROGEN 17 MG/DL (7-18); CALCIUM LEVEL 8.4 MG/DL (8.8-10.2); CARBON DIOXIDE LEVEL 23 MEQ/L (21-32); CHLORIDE LEVEL 104 MEQ/L (98-107); CPK CREATINE PHOSPHOKINASE 62 U/L (26-192); CREATININE FOR GFR 1.13 MG/DL (0.55-1.30); GLOMERULAR FILTRATION RATE 48.4 (>32); GLUCOSE, FASTING 205 MG/DL (70-100); POTASSIUM SERUM 3.7 MEQ/L (3.5-5.1); SODIUM LEVEL 136 MEQ/L (136-145); TROPONIN I 0.06 NG/ML (< 0.10)
[2017-05-02 21:30] LABS: MB/CK RELATIVE INDEX 1.61 (< OR =4)
[2017-05-03] MEDS: VANCOMYCIN ORAL SOL 250MG/5ML ORAL SYRINGE PO ×4 (00:36→17:35)
[2017-05-03] MEDS: ACETAMINOPHEN TAB 650MG DOSE (2X325MG) PO ×3 (00:47→17:35)
[2017-05-03] MEDS: METOPROLOL TART 25 MG TABLET PO ×4 (05:56→17:36)
[2017-05-03 06:00] LABS: ALBUMIN 2.3 GM/DL (3.2-5.2); ALBUMIN/GLOBULIN RATIO 0.66 (1.00-1.93); ALKALINE PHOSPHATASE 45 U/L (45-117); ALT/SGPT 11 U/L (12-78); ANION GAP 6 MEQ/L (8-16); AST/SGOT 12 U/L (7-37); BASO # 0.1 10^3/uL (0.0-0.2); BASO % 0.2 % (0.0-1.0); BILIRUBIN,TOTAL 0.7 MG/DL (0.2-1.0); BLOOD UREA NITROGEN 19 MG/DL (7-18); CALCIUM LEVEL 8.2 MG/DL (8.8-10.2); CARBON DIOXIDE LEVEL 23 MEQ/L (21-32); CHLORIDE LEVEL 108 MEQ/L (98-107); CPK CREATINE PHOSPHOKINASE 45 U/L (26-192); CREATININE FOR GFR 1.05 MG/DL (0.55-1.30); EOS # 0.1 10^3/uL (0.0-0.50); EOS % 0.4 % (0.0-3.0); GLOMERULAR FILTRATION RATE 52.7 (>32); GLUCOSE, FASTING 104 MG/DL (70-100); HEMATOCRIT 35.4 % (36.0-47.0); HEMOGLOBIN 11.4 g/dl (12.0-16.0); IMMATURE GRANULOCYTE % 1.4 % (0-3.0); LYMPH # 1.3 10^3/uL (1.5-4.5); LYMPH % 5.3 % (24.0-44.0); MB/CK RELATIVE INDEX 2.22 (< OR =4); MEAN CORPUSCULAR HEMOGLOBIN 29.2 pg (27.0-33.0); MEAN CORPUSCULAR HGB CONC 32.2 g/dl (32.0-36.5); MEAN CORPUSCULAR VOLUME 90.5 fl (80.0-96.0); MONO # 1.8 10^3/uL (0.0-0.8); MONO % 7.3 % (0.0-5.0); NEUTROPHILS # 21.1 10^3/uL (1.8-7.7); NEUTROPHILS % 85.4 % (36.0-66.0); PLATELET COUNT, AUTOMATED 139 10^3/uL (150-450); POTASSIUM SERUM 3.9 MEQ/L (3.5-5.1); RED BLOOD COUNT 3.91 10^6/uL (4.00-5.40); RED CELL DISTRIBUTION WIDTH 13.9 % (11.5-14.5); SODIUM LEVEL 137 MEQ/L (136-145); TOTAL PROTEIN 5.8 GM/DL (6.4-8.2); TROPONIN I 0.02 NG/ML (< 0.10); WHITE BLOOD COUNT 24.7 10^3/uL (4.0-10.0)
[2017-05-03] MEDS: FLUTICASONE PROP 0.05% NASAL SPRAY 16 GM (FLONASE) (08:26)
[2017-05-03] MEDS: ENOXAPARIN 30 MG/0.3 ML SYR (J1650) SC (08:26)
[2017-05-03] MEDS: LACTOBACILLUS ACIDOPHILUS CAP (BACID) PO ×3 (08:26→17:35)
[2017-05-03] MEDS: BUDESONIDE EC 3 MG CAP (ENTOCORT EC) PO (08:26)
[2017-05-03] MEDS: SENOKOT S TAB PO (08:27)
[2017-05-03 09:12] LABS: MAGNESIUM LEVEL 1.9 MG/DL (1.8-2.4)
[2017-05-04] MEDS: VANCOMYCIN ORAL SOL 250MG/5ML ORAL SYRINGE PO ×4 (00:08→17:28)
[2017-05-04] MEDS: ACETAMINOPHEN TAB 650MG DOSE (2X325MG) PO ×2 (04:06→17:27)
[2017-05-04 04:46] LABS: BASO % 0.1 % (0.0-1.0); EOS # 0.3 10^3/uL (0.0-0.50); EOS % 1.6 % (0.0-3.0); HEMATOCRIT 31.6 % (36.0-47.0); HEMOGLOBIN 10.5 g/dl (12.0-16.0); LYMPH # 1.3 10^3/uL (1.5-4.5); LYMPH % 7.9 % (24.0-44.0); MEAN CORPUSCULAR HEMOGLOBIN 29.1 pg (27.0-33.0); MEAN CORPUSCULAR HGB CONC 33.2 g/dl (32.0-36.5); MEAN CORPUSCULAR VOLUME 87.5 fl (80.0-96.0); MONO # 1.2 10^3/uL (0.0-0.8); MONO % 7.6 % (0.0-5.0); NEUTROPHILS # 12.9 10^3/uL (1.8-7.7); NEUTROPHILS % 81.8 % (36.0-66.0); PLATELET COUNT, AUTOMATED 160 10^3/uL (150-450); RED BLOOD COUNT 3.61 10^6/uL (4.00-5.40); RED CELL DISTRIBUTION WIDTH 13.6 % (11.5-14.5); WHITE BLOOD COUNT 15.9 10^3/uL (4.0-10.0)
[2017-05-04 05:17] LABS: ALBUMIN 2.1 GM/DL (3.2-5.2); ALBUMIN/GLOBULIN RATIO 0.58 (1.00-1.93); ALKALINE PHOSPHATASE 44 U/L (45-117); ALT/SGPT 12 U/L (12-78); ANION GAP 9 MEQ/L (8-16); AST/SGOT 14 U/L (7-37); BILIRUBIN,TOTAL 0.5 MG/DL (0.2-1.0); CALCIUM LEVEL 8.2 MG/DL (8.8-10.2); CARBON DIOXIDE LEVEL 22 MEQ/L (21-32); CHLORIDE LEVEL 103 MEQ/L (98-107); CREATININE FOR GFR 0.99 MG/DL (0.55-1.30); GLOMERULAR FILTRATION RATE 56.4 (>32); GLUCOSE, FASTING 92 MG/DL (70-100); POTASSIUM SERUM 3.5 MEQ/L (3.5-5.1); SODIUM LEVEL 134 MEQ/L (136-145); TOTAL PROTEIN 5.7 GM/DL (6.4-8.2)
[2017-05-04] MEDS: ONDANSETRON 4 MG TAB (S0181) PO (05:37)
[2017-05-04] MEDS: METOPROLOL TART 25 MG TABLET PO ×4 (05:42→17:28)
[2017-05-04 05:45] LABS: BLOOD UREA NITROGEN 32 MG/DL (7-18)
[2017-05-04] MEDS: FLUTICASONE PROP 0.05% NASAL SPRAY 16 GM (FLONASE) (08:48)
[2017-05-04] MEDS: LACTOBACILLUS ACIDOPHILUS CAP (BACID) PO ×3 (08:49→17:26)
[2017-05-04] MEDS: ENOXAPARIN 30 MG/0.3 ML SYR (J1650) SC (08:50)
[2017-05-04] MEDS: NS 500 ML IV (09:45)
[2017-05-04] MEDS ORDERED: SLF 3 ML SYR IV (21:15)
[2017-05-04] MEDS: SLF 3 ML SYR IV (21:29)
[2017-05-05] MEDS: METOPROLOL TART 25 MG TABLET PO ×4 (00:46→18:16)
[2017-05-05] MEDS: VANCOMYCIN ORAL SOL 250MG/5ML ORAL SYRINGE PO ×4 (00:46→18:16)
[2017-05-05] MEDS: SLF 3 ML SYR IV ×3 (05:44→22:00)
[2017-05-05] MEDS: ENOXAPARIN 30 MG/0.3 ML SYR (J1650) SC (08:30)
[2017-05-05] MEDS: LACTOBACILLUS ACIDOPHILUS CAP (BACID) PO ×3 (08:30→18:16)
[2017-05-05] MEDS: FLUTICASONE PROP 0.05% NASAL SPRAY 16 GM (FLONASE) (08:31)
[2017-05-05] MEDS: TAMOXIFEN CITRATE 10 MG TAB PO (12:13)
[2017-05-05] MEDS: OXYTROL TD (15:47)
[2017-05-06] MEDS: VANCOMYCIN ORAL SOL 250MG/5ML ORAL SYRINGE PO ×5 (01:03→23:32)
[2017-05-06 06:37] LABS: HEMATOCRIT 32.5 % (36.0-47.0); HEMOGLOBIN 10.6 g/dl (12.0-16.0); MEAN CORPUSCULAR HEMOGLOBIN 28.9 pg (27.0-33.0); MEAN CORPUSCULAR HGB CONC 32.6 g/dl (32.0-36.5); MEAN CORPUSCULAR VOLUME 88.6 fl (80.0-96.0); PLATELET COUNT, AUTOMATED 194 10^3/uL (150-450); RED BLOOD COUNT 3.67 10^6/uL (4.00-5.40); RED CELL DISTRIBUTION WIDTH 13.9 % (11.5-14.5); WHITE BLOOD COUNT 6.5 10^3/uL (4.0-10.0)
[2017-05-06 06:44] LABS: ANION GAP 7 MEQ/L (8-16); BLOOD UREA NITROGEN 30 MG/DL (7-18); CALCIUM LEVEL 8.2 MG/DL (8.8-10.2); CARBON DIOXIDE LEVEL 25 MEQ/L (21-32); CHLORIDE LEVEL 106 MEQ/L (98-107); GLOMERULAR FILTRATION RATE > 60.0 (>32); GLUCOSE, FASTING 85 MG/DL (70-100); POTASSIUM SERUM 3.7 MEQ/L (3.5-5.1); SODIUM LEVEL 138 MEQ/L (136-145)
[2017-05-06] MEDS: METOPROLOL TART 25 MG TABLET PO ×5 (06:49→23:33)
[2017-05-06] MEDS: SLF 3 ML SYR IV ×3 (06:50→20:40)
[2017-05-06] MEDS: LACTOBACILLUS ACIDOPHILUS CAP (BACID) PO ×3 (09:30→17:31)
[2017-05-06] MEDS: ENOXAPARIN 30 MG/0.3 ML SYR (J1650) SC (09:31)
[2017-05-06] MEDS: TAMOXIFEN CITRATE 10 MG TAB PO (09:31)
[2017-05-06] MEDS: FLUTICASONE PROP 0.05% NASAL SPRAY 16 GM (FLONASE) (09:31)
[2017-05-06] MEDS: ACETAMINOPHEN TAB 650MG DOSE (2X325MG) PO ×2 (12:20→21:02)
[2017-05-07] MEDS: VANCOMYCIN ORAL SOL 250MG/5ML ORAL SYRINGE PO ×4 (05:14→23:46)
[2017-05-07] MEDS: METOPROLOL TART 25 MG TABLET PO ×2 (05:14→09:36)
[2017-05-07] MEDS: SLF 3 ML SYR IV ×3 (05:15→20:24)
[2017-05-07 06:28] LABS: HEMATOCRIT 35.9 % (36.0-47.0); HEMOGLOBIN 11.7 g/dl (12.0-16.0); MEAN CORPUSCULAR HEMOGLOBIN 28.7 pg (27.0-33.0); MEAN CORPUSCULAR HGB CONC 32.6 g/dl (32.0-36.5); PLATELET COUNT, AUTOMATED 282 10^3/uL (150-450); RED BLOOD COUNT 4.08 10^6/uL (4.00-5.40); WHITE BLOOD COUNT 7.7 10^3/uL (4.0-10.0)
[2017-05-07] MEDS: LACTOBACILLUS ACIDOPHILUS CAP (BACID) PO ×3 (08:53→17:52)
[2017-05-07] MEDS: ENOXAPARIN 30 MG/0.3 ML SYR (J1650) SC (08:53)
[2017-05-07] MEDS: TAMOXIFEN CITRATE 10 MG TAB PO (08:53)
[2017-05-07] MEDS: ACETAMINOPHEN TAB 650MG DOSE (2X325MG) PO ×2 (08:55→22:28)
[2017-05-07] MEDS: FLUTICASONE PROP 0.05% NASAL SPRAY 16 GM (FLONASE) (08:55)
[2017-05-07] MEDS: METOPROLOL TART 50 MG TAB PO (20:24)
[2017-05-08] MEDS: VANCOMYCIN ORAL SOL 250MG/5ML ORAL SYRINGE PO ×3 (05:30→17:52)
[2017-05-08] MEDS: SLF 3 ML SYR IV ×3 (05:30→22:10)
[2017-05-08] MEDS: TAMOXIFEN CITRATE 10 MG TAB PO (09:26)
[2017-05-08] MEDS: FLUTICASONE PROP 0.05% NASAL SPRAY 16 GM (FLONASE) (09:26)
[2017-05-08] MEDS: ENOXAPARIN 30 MG/0.3 ML SYR (J1650) SC (09:26)
[2017-05-08] MEDS: LACTOBACILLUS ACIDOPHILUS CAP (BACID) PO ×3 (09:26→17:52)
[2017-05-08] MEDS: METOPROLOL TART 50 MG TAB PO ×2 (09:27→22:09)
[2017-05-08] MEDS: ACETAMINOPHEN TAB 650MG DOSE (2X325MG) PO ×3 (10:16→22:10)
[2017-05-09] MEDS: VANCOMYCIN ORAL SOL 250MG/5ML ORAL SYRINGE PO ×4 (00:54→18:11)
[2017-05-09 05:22] LABS: HEMATOCRIT 29.1 % (36.0-47.0); MEAN CORPUSCULAR HEMOGLOBIN 27.9 pg (27.0-33.0); MEAN CORPUSCULAR VOLUME 87.4 fl (80.0-96.0); PLATELET COUNT, AUTOMATED 273 10^3/uL (150-450); RED BLOOD COUNT 3.33 10^6/uL (4.00-5.40); WHITE BLOOD COUNT 5.3 10^3/uL (4.0-10.0)
[2017-05-09 05:26] LABS: HEMOGLOBIN 9.3 g/dl (12.0-16.0)
[2017-05-09 05:32] LABS: ANION GAP 6 MEQ/L (8-16); BLOOD UREA NITROGEN 25 MG/DL (7-18); CALCIUM LEVEL 8.1 MG/DL (8.8-10.2); CARBON DIOXIDE LEVEL 29 MEQ/L (21-32); CHLORIDE LEVEL 105 MEQ/L (98-107); GLOMERULAR FILTRATION RATE > 60.0 (>32); GLUCOSE, FASTING 83 MG/DL (70-100); MAGNESIUM LEVEL 1.9 MG/DL (1.8-2.4); SODIUM LEVEL 140 MEQ/L (136-145)
[2017-05-09] MEDS: SLF 3 ML SYR IV ×3 (05:48→21:37)
[2017-05-09] MEDS: ACETAMINOPHEN TAB 650MG DOSE (2X325MG) PO ×3 (05:48→18:11)
[2017-05-09] MEDS: LACTOBACILLUS ACIDOPHILUS CAP (BACID) PO ×3 (08:58→18:11)
[2017-05-09] MEDS: TAMOXIFEN CITRATE 10 MG TAB PO (08:58)
[2017-05-09] MEDS: OXYTROL TD (08:59)
[2017-05-09] MEDS: FLUTICASONE PROP 0.05% NASAL SPRAY 16 GM (FLONASE) (08:59)
[2017-05-09] MEDS: METOPROLOL TART 50 MG TAB PO ×2 (08:59→21:37)
[2017-05-09] MEDS: ENOXAPARIN 30 MG/0.3 ML SYR (J1650) SC (08:59)
[2017-05-09 12:49] LABS: HEMATOCRIT 33.3 % (36.0-47.0); HEMOGLOBIN 10.8 g/dl (12.0-16.0); MEAN CORPUSCULAR HGB CONC 32.4 g/dl (32.0-36.5); MEAN CORPUSCULAR VOLUME 89.3 fl (80.0-96.0); PLATELET COUNT, AUTOMATED 343 10^3/uL (150-450); RED BLOOD COUNT 3.73 10^6/uL (4.00-5.40); WHITE BLOOD COUNT 8.1 10^3/uL (4.0-10.0)
[2017-05-10] MEDS: VANCOMYCIN ORAL SOL 250MG/5ML ORAL SYRINGE PO ×4 (00:40→17:38)
[2017-05-10] MEDS: ACETAMINOPHEN TAB 650MG DOSE (2X325MG) PO ×3 (05:21→21:12)
[2017-05-10] MEDS: SLF 3 ML SYR IV ×3 (05:22→21:12)
[2017-05-10 05:59] LABS: HEMATOCRIT 29.2 % (36.0-47.0); HEMOGLOBIN 9.7 g/dl (12.0-16.0); MEAN CORPUSCULAR HEMOGLOBIN 29.5 pg (27.0-33.0); MEAN CORPUSCULAR HGB CONC 33.2 g/dl (32.0-36.5); MEAN CORPUSCULAR VOLUME 88.8 fl (80.0-96.0); PLATELET COUNT, AUTOMATED 294 10^3/uL (150-450); RED BLOOD COUNT 3.29 10^6/uL (4.00-5.40); RED CELL DISTRIBUTION WIDTH 14.1 % (11.5-14.5); WHITE BLOOD COUNT 6.3 10^3/uL (4.0-10.0)
[2017-05-10 06:20] LABS: ANION GAP 4 MEQ/L (8-16); BLOOD UREA NITROGEN 26 MG/DL (7-18); CALCIUM LEVEL 8.4 MG/DL (8.8-10.2); CARBON DIOXIDE LEVEL 29 MEQ/L (21-32); CHLORIDE LEVEL 105 MEQ/L (98-107); CREATININE FOR GFR 0.66 MG/DL (0.55-1.30); GLOMERULAR FILTRATION RATE > 60.0 (>32); GLUCOSE, FASTING 88 MG/DL (70-100); SODIUM LEVEL 138 MEQ/L (136-145)
[2017-05-10] MEDS: TAMOXIFEN CITRATE 10 MG TAB PO (08:14)
[2017-05-10] MEDS: METOPROLOL TART 50 MG TAB PO ×2 (08:14→21:12)
[2017-05-10] MEDS: LACTOBACILLUS ACIDOPHILUS CAP (BACID) PO ×3 (08:14→17:38)
[2017-05-10] MEDS: FLUTICASONE PROP 0.05% NASAL SPRAY 16 GM (FLONASE) (08:15)
[2017-05-10] MEDS: ENOXAPARIN 30 MG/0.3 ML SYR (J1650) SC (08:15)
[2017-05-11] MEDS: VANCOMYCIN ORAL SOL 250MG/5ML ORAL SYRINGE PO ×3 (00:21→11:27)
[2017-05-11] MEDS: SLF 3 ML SYR IV (05:17)
[2017-05-11] MEDS: ACETAMINOPHEN TAB 650MG DOSE (2X325MG) PO (05:17)
[2017-05-11 05:48] LABS: HEMATOCRIT 31.2 % (36.0-47.0); MEAN CORPUSCULAR HEMOGLOBIN 28.3 pg (27.0-33.0); MEAN CORPUSCULAR HGB CONC 32.1 g/dl (32.0-36.5); MEAN CORPUSCULAR VOLUME 88.4 fl (80.0-96.0); PLATELET COUNT, AUTOMATED 316 10^3/uL (150-450); RED BLOOD COUNT 3.53 10^6/uL (4.00-5.40); RED CELL DISTRIBUTION WIDTH 14.2 % (11.5-14.5); WHITE BLOOD COUNT 6.4 10^3/uL (4.0-10.0)
[2017-05-11 06:24] LABS: ANION GAP 7 MEQ/L (8-16); BLOOD UREA NITROGEN 27 MG/DL (7-18); CALCIUM LEVEL 8.2 MG/DL (8.8-10.2); CARBON DIOXIDE LEVEL 26 MEQ/L (21-32); CHLORIDE LEVEL 106 MEQ/L (98-107); CREATININE FOR GFR 0.72 MG/DL (0.55-1.30); GLOMERULAR FILTRATION RATE > 60.0 (>32); GLUCOSE, FASTING 84 MG/DL (70-100); POTASSIUM SERUM 4.5 MEQ/L (3.5-5.1); SODIUM LEVEL 139 MEQ/L (136-145)
[2017-05-11] MEDS: METOPROLOL TART 50 MG TAB PO (08:56)
[2017-05-11] MEDS: ENOXAPARIN 30 MG/0.3 ML SYR (J1650) SC (08:56)
[2017-05-11] MEDS: LACTOBACILLUS ACIDOPHILUS CAP (BACID) PO (08:56)
[2017-05-11] MEDS: TAMOXIFEN CITRATE 10 MG TAB PO (08:56)
[2017-05-11] MEDS: FLUTICASONE PROP 0.05% NASAL SPRAY 16 GM (FLONASE) (09:20)
== END 2017-05-11 12:15 | disposition home health service (06) | DRG 372 ==
LOC: M PCU 05-04 19:34 → M ED 10:52 → M ED INP 13:17 → M ICU 16:06
DX: A04.71 Enterocolitis due to Clostridium difficile, recurrent (principal); I47.1 Supraventricular tachycardia; K57.32 Diverticulitis of large intestine without perforation or abscess without bleeding; I50.32 Chronic diastolic (congestive) heart failure; R55 Syncope and collapse; E78.5 Hyperlipidemia, unspecified; M81.0 Age-related osteoporosis without current pathological fracture; M17.2 Bilateral post-traumatic osteoarthritis of knee; M11.261 Other chondrocalcinosis, right knee; E87.6 Hypokalemia; S80.01XA Contusion of right knee, initial encounter; S80.02XA Contusion of left knee, initial encounter; W18.30XA Fall on same level, unspecified, initial encounter; Y92.009 Unspecified place in unspecified non-institutional (private) residence as the place of occurrence of the external cause; Z79.899 Other long term (current) drug therapy; E66.9 Obesity, unspecified; Z85.3 Personal history of malignant neoplasm of breast; Z79.82 Long term (current) use of aspirin; Z88.2 Allergy status to sulfonamides; Z88.8 Allergy status to other drugs, medicaments and biological substances; D72.829 Elevated white blood cell count, unspecified; Z86.73 Personal history of transient ischemic attack (TIA), and cerebral infarction without residual deficits; I27.20 Pulmonary hypertension, unspecified; Z96.642 Presence of left artificial hip joint; D64.9 Anemia, unspecified; I11.0 Hypertensive heart disease with heart failure

== ENCOUNTER 2017-05-12 09:40 | Emergency (ER) | payer MEDICARE, OTHER ==
[2017-05-12 11:18] LABS: ALBUMIN 2.5 GM/DL (3.2-5.2); ALBUMIN/GLOBULIN RATIO 0.83 (1.00-1.93); ALKALINE PHOSPHATASE 43 U/L (45-117); ALT/SGPT 14 U/L (12-78); ANION GAP 5 MEQ/L (8-16); AST/SGOT 20 U/L (7-37); BILIRUBIN,TOTAL 0.3 MG/DL (0.2-1.0); BLOOD UREA NITROGEN 25 MG/DL (7-18); CALCIUM LEVEL 8.2 MG/DL (8.8-10.2); CARBON DIOXIDE LEVEL 28 MEQ/L (21-32); CHLORIDE LEVEL 104 MEQ/L (98-107); CREATININE FOR GFR 0.86 MG/DL (0.55-1.30); GLOMERULAR FILTRATION RATE > 60.0 (>32); GLUCOSE, FASTING 91 MG/DL (70-100); POTASSIUM SERUM 4.2 MEQ/L (3.5-5.1); SODIUM LEVEL 137 MEQ/L (136-145); TOTAL PROTEIN 5.5 GM/DL (6.4-8.2)
== END 2017-05-12 14:14 | disposition home or self-care (01) ==
LOC: M ED 09:40
DX: R60.0 Localized edema (principal); I25.10 Atherosclerotic heart disease of native coronary artery without angina pectoris; I50.9 Heart failure, unspecified; I11.0 Hypertensive heart disease with heart failure; A04.72 Enterocolitis due to Clostridium difficile, not specified as recurrent; E78.5 Hyperlipidemia, unspecified; H81.09 Meniere's disease, unspecified ear; Z79.899 Other long term (current) drug therapy; Z79.51 Long term (current) use of inhaled steroids; Z79.2 Long term (current) use of antibiotics; Z88.1 Allergy status to other antibiotic agents; Z88.8 Allergy status to other drugs, medicaments and biological substances; Z88.2 Allergy status to sulfonamides; Z85.3 Personal history of malignant neoplasm of breast; Z98.890 Other specified postprocedural states
CPT/HCPCS: 71046

== ENCOUNTER 2017-05-21 23:57 | Emergency (ER) | payer MEDICARE, OTHER ==
[2017-05-22] MEDS: FUROSEMIDE 40 MG/4 ML VIAL (J1940) IV (00:30)
[2017-05-22 00:45] LABS: VENOUS HCO3 26.5 MEQ/L (23.0-27.0); VENOUS PARTIAL PRESSURE CO2 46.1 mmHg (38.0-50.0); VENOUS PH 7.378 UNITS (7.330-7.430); VENOUS STANDARD HCO3 25.1 MEQ/L
[2017-05-22 00:46] LABS: BASO # 0.1 10^3/uL (0.0-0.2); BASO % 1.1 % (0.0-1.0); EOS # 0.1 10^3/uL (0.0-0.50); HEMATOCRIT 31.5 % (36.0-47.0); HEMOGLOBIN 10.2 g/dl (12.0-16.0); IMMATURE GRANULOCYTE % 0.4 % (0-3.0); LYMPH # 1.6 10^3/uL (1.5-4.5); LYMPH % 22.5 % (24.0-44.0); MEAN CORPUSCULAR HEMOGLOBIN 29.1 pg (27.0-33.0); MEAN CORPUSCULAR HGB CONC 32.4 g/dl (32.0-36.5); MONO # 0.7 10^3/uL (0.0-0.8); MONO % 10.4 % (0.0-5.0); NEUTROPHILS # 4.6 10^3/uL (1.8-7.7); NEUTROPHILS % 64.6 % (36.0-66.0); PLATELET COUNT, AUTOMATED 295 10^3/uL (150-450); RED CELL DISTRIBUTION WIDTH 15.1 % (11.5-14.5); WHITE BLOOD COUNT 7.1 10^3/uL (4.0-10.0)
[2017-05-22 01:26] LABS: ANION GAP 8 MEQ/L (8-16); BLOOD UREA NITROGEN 18 MG/DL (7-18); CALCIUM LEVEL 8.7 MG/DL (8.8-10.2); CARBON DIOXIDE LEVEL 27 MEQ/L (21-32); CHLORIDE LEVEL 104 MEQ/L (98-107); CPK CREATINE PHOSPHOKINASE 67 U/L (26-192); CREATININE FOR GFR 0.81 MG/DL (0.55-1.30); GLOMERULAR FILTRATION RATE > 60.0 (>32); GLUCOSE, FASTING 101 MG/DL (70-100); POTASSIUM SERUM 4.1 MEQ/L (3.5-5.1); SODIUM LEVEL 139 MEQ/L (136-145); TROPONIN I < 0.02 NG/ML (< 0.10)
[2017-05-22 01:29] LABS: CK-MB VALUE MASS 1.4 NG/ML (0.0-3.6); MB/CK RELATIVE INDEX 2.08 (< OR =4); NT-PRO BNP 2963 PG/ML (<450)
== END 2017-05-22 05:14 | disposition home or self-care (01) ==
LOC: M ED 23:57
DX: I50.9 Heart failure, unspecified (principal); J90 Pleural effusion, not elsewhere classified; Z79.899 Other long term (current) drug therapy; Z88.1 Allergy status to other antibiotic agents; Z88.2 Allergy status to sulfonamides; Z88.8 Allergy status to other drugs, medicaments and biological substances
CPT/HCPCS: J1940

== ENCOUNTER → 2017-05-26 | Outpatient (REF) | payer MEDICARE, OTHER ==
[2017-05-26 15:42] LABS: HEMATOCRIT 29.8 % (36.0-47.0); HEMOGLOBIN 9.3 g/dl (12.0-16.0); MEAN CORPUSCULAR HEMOGLOBIN 28.4 pg (27.0-33.0); MEAN CORPUSCULAR HGB CONC 31.2 g/dl (32.0-36.5); MEAN CORPUSCULAR VOLUME 90.9 fl (80.0-96.0); PLATELET COUNT, AUTOMATED 223 10^3/uL (150-450); RED BLOOD COUNT 3.28 10^6/uL (4.00-5.40); RED CELL DISTRIBUTION WIDTH 15.7 % (11.5-14.5)
[2017-05-26 16:20] LABS: ANION GAP 8 MEQ/L (8-16); BLOOD UREA NITROGEN 18 MG/DL (7-18); CALCIUM LEVEL 8.2 MG/DL (8.8-10.2); CARBON DIOXIDE LEVEL 29 MEQ/L (21-32); CHLORIDE LEVEL 103 MEQ/L (98-107); CREATININE FOR GFR 0.82 MG/DL (0.55-1.30); GLOMERULAR FILTRATION RATE > 60.0 (>32); GLUCOSE, FASTING 102 MG/DL (70-100); POTASSIUM SERUM 3.9 MEQ/L (3.5-5.1); SODIUM LEVEL 140 MEQ/L (136-145)
== END ==
LOC: M LAB REF 15:30
DX: R60.0 Localized edema (principal); A04.71 Enterocolitis due to Clostridium difficile, recurrent
CPT/HCPCS: 80048

== ENCOUNTER → 2017-05-30 | Outpatient (REF) | payer MEDICARE, OTHER | LOC: M SFHCADAM 12:26 | DX: A04.71 Enterocolitis due to Clostridium difficile, recurrent (principal) ==

== ENCOUNTER → 2017-06-15 | Outpatient (REF) | payer MEDICARE, OTHER ==
[2017-06-15 19:49] LABS: HEMATOCRIT 36.1 % (36.0-47.0); HEMOGLOBIN 11.2 g/dl (12.0-15.5); MEAN CORPUSCULAR HEMOGLOBIN 28.4 pg (27.0-33.0); MEAN CORPUSCULAR VOLUME 91.6 fl (80.0-96.0); PLATELET COUNT, AUTOMATED 204 10^3/uL (150-450); RED BLOOD COUNT 3.94 10^6/uL (4.00-5.40); RED CELL DISTRIBUTION WIDTH 15.5 % (11.5-14.5); WHITE BLOOD COUNT 7.5 10^3/uL (4.0-10.0)
[2017-06-15 20:05] LABS: ALBUMIN 3.6 GM/DL (3.2-5.2); ALBUMIN/GLOBULIN RATIO 1.09 (1.00-1.93); ALKALINE PHOSPHATASE 39 U/L (45-117); ALT/SGPT 14 U/L (12-78); ANION GAP 7 MEQ/L (8-16); AST/SGOT 19 U/L (7-37); BILIRUBIN,TOTAL 0.6 MG/DL (0.2-1.0); BLOOD UREA NITROGEN 17 MG/DL (7-18); CALCIUM LEVEL 8.9 MG/DL (8.8-10.2); CARBON DIOXIDE LEVEL 30 MEQ/L (21-32); CHLORIDE LEVEL 106 MEQ/L (98-107); CREATININE FOR GFR 0.89 MG/DL (0.55-1.30); GLOMERULAR FILTRATION RATE > 60.0 (>32); GLUCOSE, FASTING 86 MG/DL (70-100); SODIUM LEVEL 143 MEQ/L (136-145); TOTAL PROTEIN 6.9 GM/DL (6.4-8.2)
== END ==
LOC: M SFHCADAM 11:47
DX: I25.10 Atherosclerotic heart disease of native coronary artery without angina pectoris (principal); I50.30 Unspecified diastolic (congestive) heart failure
CPT/HCPCS: 80053

== ENCOUNTER → 2017-06-16 | Outpatient (REF) | payer MEDICARE, OTHER | LOC: M SFHCADAM 12:41 | DX: R31.9 Hematuria, unspecified (principal) | CPT/HCPCS: 87086 ==

== ENCOUNTER 2017-07-28 17:07 | Inpatient (IN) | payer MEDICARE, OTHER ==
[2017-07-28] MEDS: BUPIVACAINE HCL 0.25% 30 ML VIAL As Ordered ×2 (16:33→22:34)
[2017-07-28] MEDS ORDERED: fentaNYL 250 MCG/5 ML INJECTION (J3010) As Ordered ×2 (18:13→18:23)
[2017-07-28] MEDS ORDERED: PROPOFOL 200 MG/20 ML VIAL As Ordered (18:13)
[2017-07-28] MEDS ORDERED: MIDAZOLAM INJ 2 MG/2 ML VIAL (J2250) As Ordered (18:13)
[2017-07-28] MEDS ORDERED: LIDOCAINE 2% INJ 100 MG/5 ML SDV (FOR ANES.) As Ordered ×2 (18:13→18:23)
[2017-07-28] MEDS ORDERED: ROCURONIUM BROMIDE 50 MG/5 ML VIAL As Ordered (18:13)
[2017-07-28] MEDS: LR 1,000 ML IV ×2 (18:15→22:45)
[2017-07-28] MEDS ORDERED: ETOMIDATE INJ 20MG/10ML VIAL As Ordered (18:22)
[2017-07-28] MEDS ORDERED: dexameTHASONE 4 MG/ML 1ML VIAL (J1100) As Ordered (18:22)
[2017-07-28] MEDS ORDERED: NEOSTIGMINE 10 MG/10 ML VIAL (J2710) As Ordered (18:23)
[2017-07-28] MEDS ORDERED: GLYCOPYRROLATE INJ 0.2 MG/ML 2 ML VIAL As Ordered (18:23)
[2017-07-28 18:34] LABS: HEMATOCRIT 36.2 % (36.0-47.0); HEMOGLOBIN 11.8 g/dl (12.0-15.5); MEAN CORPUSCULAR HEMOGLOBIN 28.6 pg (27.0-33.0); MEAN CORPUSCULAR HGB CONC 32.6 g/dl (32.0-36.5); MEAN CORPUSCULAR VOLUME 87.7 fl (80.0-96.0); PLATELET COUNT, AUTOMATED 164 10^3/uL (150-450); RED BLOOD COUNT 4.13 10^6/uL (4.00-5.40); RED CELL DISTRIBUTION WIDTH 14.3 % (11.5-14.5); WHITE BLOOD COUNT 5.9 10^3/uL (4.0-10.0)
[2017-07-28] MEDS ORDERED: METOPROLOL TART 25 MG TABLET As Ordered (18:34)
[2017-07-28] MEDS: ZOSYN 3.375 GM VIAL (J2543) As Ordered (18:38)
[2017-07-28] MEDS: METOPROLOL TART 25 MG TABLET PO (18:43)
[2017-07-28] MEDS: PIPERACILLIN/TAZOBACTAM SOD 3.375 GM in D5W MINI-BAG PLUS 50 ML IV (18:55)
[2017-07-28] MEDS ORDERED: ePHEDrine SULFATE 25 MG/5 ML(5MG/ML) SYRINGE As Ordered (19:42)
[2017-07-28] MEDS ORDERED: PHENYLephrine HCL 500 MCG/5 ML (100MCG/ML) SYRINGE (J2370) As Ordered (21:20)
[2017-07-28] MEDS ORDERED: PERCOCET 5MG/325MG TAB PO (22:45)
[2017-07-28] MEDS ORDERED: ONDANSETRON 4MG/2ML VIAL (J2405) IV ×2 (22:45→23:00)
[2017-07-28] MEDS ORDERED: MORPHINE 4 MG/ML 1ML VIAL/SYRINGE (J2270) IV (23:00)
[2017-07-28] MEDS ORDERED: fentaNYL 100 MCG/2 ML INJECTION (J3010) As Ordered (23:19)
[2017-07-28] MEDS ORDERED: MEPERIDINE INJ 25 MG/ML VIAL (J2175) As Ordered (23:20)
[2017-07-28] MEDS: MEPERIDINE INJ 25 MG/ML VIAL (J2175) IV ×2 (23:32→23:40)
[2017-07-28] MEDS: fentaNYL 100 MCG/2 ML INJECTION (J3010) IV ×4 (23:33→23:55)
[2017-07-29] MEDS: LR 1,000 ML IV (00:32)
[2017-07-29] MEDS: PIPERACILLIN/TAZOBACTAM SOD 3.375 GM in D5W MINI-BAG PLUS 50 ML IV (01:55)
[2017-07-29] MEDS: NORCO, ANEXSIA 5/325MG TABLET (HYDROcodone/ACETAMINOPHEN) PO ×4 (02:15→21:23)
[2017-07-29 06:35] LABS: BASO % 0.1 % (0.0-1.0); HEMATOCRIT 33.4 % (36.0-47.0); HEMOGLOBIN 10.9 g/dl (12.0-15.5); IMMATURE GRANULOCYTE % 0.4 % (0-3.0); LYMPH # 0.5 10^3/uL (1.5-4.5); LYMPH % 4.2 % (24.0-44.0); MEAN CORPUSCULAR HEMOGLOBIN 28.6 pg (27.0-33.0); MEAN CORPUSCULAR HGB CONC 32.6 g/dl (32.0-36.5); MEAN CORPUSCULAR VOLUME 87.7 fl (80.0-96.0); MONO # 0.2 10^3/uL (0.0-0.8); NEUTROPHILS # 9.9 10^3/uL (1.8-7.7); NEUTROPHILS % 93.3 % (36.0-66.0); PLATELET COUNT, AUTOMATED 153 10^3/uL (150-450); RED BLOOD COUNT 3.81 10^6/uL (4.00-5.40); RED CELL DISTRIBUTION WIDTH 14.1 % (11.5-14.5); WHITE BLOOD COUNT 10.6 10^3/uL (4.0-10.0)
[2017-07-29 07:14] LABS: ALBUMIN 2.7 GM/DL (3.2-5.2); ALBUMIN/GLOBULIN RATIO 0.93 (1.00-1.93); ALKALINE PHOSPHATASE 30 U/L (45-117); ALT/SGPT 17 U/L (12-78); ANION GAP 10 MEQ/L (8-16); AST/SGOT 29 U/L (7-37); BILIRUBIN,TOTAL 0.8 MG/DL (0.2-1.0); BLOOD UREA NITROGEN 14 MG/DL (7-18); CALCIUM LEVEL 8.3 MG/DL (8.8-10.2); CARBON DIOXIDE LEVEL 24 MEQ/L (21-32); CHLORIDE LEVEL 107 MEQ/L (98-107); CREATININE FOR GFR 0.92 MG/DL (0.55-1.30); GLOMERULAR FILTRATION RATE > 60.0 (>32); GLUCOSE, FASTING 149 MG/DL (70-100); POTASSIUM SERUM 3.2 MEQ/L (3.5-5.1); SODIUM LEVEL 141 MEQ/L (136-145); TOTAL PROTEIN 5.6 GM/DL (6.4-8.2)
[2017-07-29] MEDS: METOPROLOL TART 50 MG TAB PO ×2 (08:30→21:23)
[2017-07-29] MEDS: ATORVASTATIN 20 MG TAB PO (21:22)
[2017-07-30] MEDS: NORCO, ANEXSIA 5/325MG TABLET (HYDROcodone/ACETAMINOPHEN) PO ×3 (05:31→21:01)
[2017-07-30 06:12] LABS: BASO % 0.3 % (0.0-1.0); EOS # 0.1 10^3/uL (0.0-0.50); EOS % 1.5 % (0.0-3.0); HEMATOCRIT 31.1 % (36.0-47.0); HEMOGLOBIN 10.2 g/dl (12.0-15.5); IMMATURE GRANULOCYTE % 0.2 % (0-3.0); LYMPH # 1.7 10^3/uL (1.5-4.5); LYMPH % 19.1 % (24.0-44.0); MEAN CORPUSCULAR HEMOGLOBIN 28.9 pg (27.0-33.0); MEAN CORPUSCULAR HGB CONC 32.8 g/dl (32.0-36.5); MEAN CORPUSCULAR VOLUME 88.1 fl (80.0-96.0); MONO # 0.9 10^3/uL (0.0-0.8); MONO % 9.8 % (0.0-5.0); NEUTROPHILS # 6.2 10^3/uL (1.8-7.7); NEUTROPHILS % 69.1 % (36.0-66.0); PLATELET COUNT, AUTOMATED 142 10^3/uL (150-450); RED BLOOD COUNT 3.53 10^6/uL (4.00-5.40); RED CELL DISTRIBUTION WIDTH 14.5 % (11.5-14.5); WHITE BLOOD COUNT 8.9 10^3/uL (4.0-10.0)
[2017-07-30 06:30] LABS: ANION GAP 8 MEQ/L (8-16); BLOOD UREA NITROGEN 19 MG/DL (7-18); CALCIUM LEVEL 8.6 MG/DL (8.8-10.2); CARBON DIOXIDE LEVEL 27 MEQ/L (21-32); CHLORIDE LEVEL 105 MEQ/L (98-107); CREATININE FOR GFR 1.05 MG/DL (0.55-1.30); GLOMERULAR FILTRATION RATE 52.7 (>32); GLUCOSE, FASTING 101 MG/DL (70-100); POTASSIUM SERUM 3.2 MEQ/L (3.5-5.1); SODIUM LEVEL 140 MEQ/L (136-145)
[2017-07-30] MEDS: METOPROLOL TART 50 MG TAB PO ×2 (08:54→20:59)
[2017-07-30] MEDS: FUROSEMIDE 40 MG TAB PO (12:19)
[2017-07-30] MEDS: POTASSIUM CHLORIDE 10 MEQ SR TABLET PO ×2 (17:07→21:00)
[2017-07-30] MEDS: ATORVASTATIN 20 MG TAB PO (21:01)
[2017-07-31] MEDS: ACETAMINOPHEN TAB 650MG DOSE (2X325MG) PO (09:37)
[2017-07-31] MEDS: FUROSEMIDE 40 MG TAB PO (09:38)
[2017-07-31] MEDS: METOPROLOL TART 50 MG TAB PO (09:38)
[2017-07-31] MEDS: POTASSIUM CHLORIDE 10 MEQ SR TABLET PO (09:38)
[2017-07-31] MEDS: NORCO, ANEXSIA 5/325MG TABLET (HYDROcodone/ACETAMINOPHEN) PO ×2 (09:40→13:26)
== END 2017-07-31 13:29 | disposition home or self-care (01) | DRG 330 ==
LOC: M ED INP 17:07 → M MS5PR 07-29 00:10
PROC: 0DBE0ZZ Excision of Large Intestine, Open Approach (ICD-10-PCS; principal; 2017-07-28 14:15)
DX: K57.32 Diverticulitis of large intestine without perforation or abscess without bleeding (principal); I50.32 Chronic diastolic (congestive) heart failure; I11.0 Hypertensive heart disease with heart failure; E78.00 Pure hypercholesterolemia, unspecified; F41.9 Anxiety disorder, unspecified; Z85.3 Personal history of malignant neoplasm of breast; Z53.31 Laparoscopic surgical procedure converted to open procedure

== ENCOUNTER → 2017-08-11 | Outpatient (CLI) | payer MEDICARE, OTHER ==
[2017-08-11 14:17] LABS: ANION GAP 7 MEQ/L (8-16); BLOOD UREA NITROGEN 16 MG/DL (7-18); CALCIUM LEVEL 8.5 MG/DL (8.8-10.2); CARBON DIOXIDE LEVEL 30 MEQ/L (21-32); CHLORIDE LEVEL 105 MEQ/L (98-107); CREATININE FOR GFR 0.94 MG/DL (0.55-1.30); GLOMERULAR FILTRATION RATE 59.8 (>32); GLUCOSE, FASTING 189 MG/DL (70-100); POTASSIUM SERUM 3.6 MEQ/L (3.5-5.1); SODIUM LEVEL 142 MEQ/L (136-145)
== END ==
LOC: M SMT 08:57
DX: E87.6 Hypokalemia (principal)
CPT/HCPCS: 80048

== ENCOUNTER 2017-08-13 07:44 | Emergency (ER) | payer MEDICARE, OTHER ==
[2017-08-13 08:27] LABS: BASO # 0.1 10^3/uL (0.0-0.2); BASO % 1.1 % (0.0-1.0); EOS # 0.1 10^3/uL (0.0-0.50); EOS % 1.4 % (0.0-3.0); HEMATOCRIT 38.4 % (36.0-47.0); HEMOGLOBIN 12.3 g/dl (12.0-15.5); IMMATURE GRANULOCYTE % 0.2 % (0-3.0); LYMPH # 1.3 10^3/uL (1.5-4.5); LYMPH % 19.3 % (24.0-44.0); MEAN CORPUSCULAR HEMOGLOBIN 28.7 pg (27.0-33.0); MEAN CORPUSCULAR VOLUME 89.5 fl (80.0-96.0); MONO # 0.5 10^3/uL (0.0-0.8); MONO % 7.8 % (0.0-5.0); NEUTROPHILS # 4.6 10^3/uL (1.8-7.7); NEUTROPHILS % 70.2 % (36.0-66.0); PLATELET COUNT, AUTOMATED 288 10^3/uL (150-450); RED BLOOD COUNT 4.29 10^6/uL (4.00-5.40); RED CELL DISTRIBUTION WIDTH 14.1 % (11.5-14.5); WHITE BLOOD COUNT 6.5 10^3/uL (4.0-10.0)
[2017-08-13] MEDS: NS 1,000 ML IV (08:33)
[2017-08-13 08:47] LABS: ALBUMIN 3.8 GM/DL (3.2-5.2); ALBUMIN/GLOBULIN RATIO 1.03 (1.00-1.93); ALKALINE PHOSPHATASE 47 U/L (45-117); ALT/SGPT 20 U/L (12-78); ANION GAP 7 MEQ/L (8-16); AST/SGOT 23 U/L (7-37); BILIRUBIN,DIRECT 0.2 MG/DL (0.0-0.2); BILIRUBIN,TOTAL 0.6 MG/DL (0.2-1.0); BLOOD UREA NITROGEN 16 MG/DL (7-18); CALCIUM LEVEL 9.2 MG/DL (8.8-10.2); CARBON DIOXIDE LEVEL 31 MEQ/L (21-32); CHLORIDE LEVEL 105 MEQ/L (98-107); CREATININE FOR GFR 0.95 MG/DL (0.55-1.30); GLOMERULAR FILTRATION RATE 59.1 (>32); GLUCOSE, FASTING 113 MG/DL (70-100); LIPASE 317 U/L (73-393); POTASSIUM SERUM 3.2 MEQ/L (3.5-5.1); SODIUM LEVEL 143 MEQ/L (136-145); TOTAL PROTEIN 7.5 GM/DL (6.4-8.2)
[2017-08-13] MEDS: GASTROGRAFIN SOLUTION 30ML PO ×2 (09:34→09:55)
[2017-08-13] MEDS: POTASSIUM CHLORIDE 10 MEQ SR TABLET PO (09:34)
[2017-08-13] MEDS ORDERED: ISOVUE-370 76% 100ML VIAL (Q9967) As Ordered (10:10)
== END 2017-08-13 15:47 | disposition home or self-care (01) ==
LOC: M ED 07:44
DX: R10.9 Unspecified abdominal pain (principal); Z98.890 Other specified postprocedural states; Z90.49 Acquired absence of other specified parts of digestive tract; I11.0 Hypertensive heart disease with heart failure; I50.9 Heart failure, unspecified; E78.9 Disorder of lipoprotein metabolism, unspecified; E55.9 Vitamin D deficiency, unspecified; F41.9 Anxiety disorder, unspecified; K57.92 Diverticulitis of intestine, part unspecified, without perforation or abscess without bleeding; M81.0 Age-related osteoporosis without current pathological fracture; Z85.3 Personal history of malignant neoplasm of breast; Z88.1 Allergy status to other antibiotic agents; Z88.2 Allergy status to sulfonamides; Z88.8 Allergy status to other drugs, medicaments and biological substances; Z79.899 Other long term (current) drug therapy
CPT/HCPCS: Q9963

== ENCOUNTER → 2017-08-26 | Outpatient (REF) | payer MEDICARE, OTHER ==
[2017-08-26 18:54] LABS: ANION GAP 7 MEQ/L (8-16); BLOOD UREA NITROGEN 16 MG/DL (7-18); CALCIUM LEVEL 8.6 MG/DL (8.8-10.2); CARBON DIOXIDE LEVEL 29 MEQ/L (21-32); CHLORIDE LEVEL 108 MEQ/L (98-107); GLOMERULAR FILTRATION RATE > 60.0 (>32); GLUCOSE, FASTING 82 MG/DL (70-100); MAGNESIUM LEVEL 2.1 MG/DL (1.8-2.4); POTASSIUM SERUM 3.8 MEQ/L (3.5-5.1); SODIUM LEVEL 144 MEQ/L (136-145)
== END ==
LOC: M SFHCADAM 14:11
DX: E87.6 Hypokalemia (principal)
CPT/HCPCS: 83735

== ENCOUNTER → 2017-08-31 | Outpatient (CLI) | payer MEDICARE, OTHER | LOC: M WHC 08:57 | DX: Z12.31 Encounter for screening mammogram for malignant neoplasm of breast (principal); R92.8 Other abnormal and inconclusive findings on diagnostic imaging of breast; Z78.0 Asymptomatic menopausal state; Z92.3 Personal history of irradiation; Z85.3 Personal history of malignant neoplasm of breast | CPT/HCPCS: 77067 ==

== ENCOUNTER → 2017-09-05 | Outpatient (CLI) | payer MEDICARE, OTHER | LOC: M WHC 14:17 | DX: Z85.3 Personal history of malignant neoplasm of breast (principal); N85.4 Malposition of uterus; N85.00 Endometrial hyperplasia, unspecified; N85.8 Other specified noninflammatory disorders of uterus | CPT/HCPCS: 76830 ==

== ENCOUNTER 2017-10-07 00:20 | Emergency (ER) | payer MEDICARE, OTHER ==
[2017-10-07 02:29] LABS: BASO # 0.1 10^3/uL (0.0-0.2); BASO % 0.8 % (0.0-1.0); EOS # 0.2 10^3/uL (0.0-0.50); EOS % 3.3 % (0.0-3.0); HEMATOCRIT 38.2 % (36.0-47.0); HEMOGLOBIN 12.4 g/dl (12.0-15.5); IMMATURE GRANULOCYTE % 0.2 % (0-3.0); LYMPH # 2.3 10^3/uL (1.5-4.5); LYMPH % 37.7 % (24.0-44.0); MEAN CORPUSCULAR HEMOGLOBIN 29.2 pg (27.0-33.0); MEAN CORPUSCULAR HGB CONC 32.5 g/dl (32.0-36.5); MEAN CORPUSCULAR VOLUME 89.9 fl (80.0-96.0); MONO # 0.7 10^3/uL (0.0-0.8); MONO % 11.4 % (0.0-5.0); NEUTROPHILS # 2.8 10^3/uL (1.8-7.7); NEUTROPHILS % 46.6 % (36.0-66.0); PLATELET COUNT, AUTOMATED 186 10^3/uL (150-450); RED BLOOD COUNT 4.25 10^6/uL (4.00-5.40); RED CELL DISTRIBUTION WIDTH 14.6 % (11.5-14.5)
[2017-10-07 02:50] LABS: ALBUMIN 3.5 GM/DL (3.2-5.2); ALBUMIN/GLOBULIN RATIO 1.03 (1.00-1.93); ALKALINE PHOSPHATASE 38 U/L (45-117); ALT/SGPT 17 U/L (12-78); ANION GAP 8 MEQ/L (8-16); AST/SGOT 27 U/L (7-37); BILIRUBIN,DIRECT 0.2 MG/DL (0.0-0.2); BILIRUBIN,TOTAL 0.5 MG/DL (0.2-1.0); BLOOD UREA NITROGEN 24 MG/DL (7-18); CARBON DIOXIDE LEVEL 31 MEQ/L (21-32); CHLORIDE LEVEL 104 MEQ/L (98-107); CPK CREATINE PHOSPHOKINASE 116 U/L (26-192); CREATININE FOR GFR 1.02 MG/DL (0.55-1.30); GLOMERULAR FILTRATION RATE 54.4 (>32); GLUCOSE, FASTING 109 MG/DL (70-100); LIPASE 383 U/L (73-393); POTASSIUM SERUM 3.9 MEQ/L (3.5-5.1); SODIUM LEVEL 143 MEQ/L (136-145); TOTAL PROTEIN 6.9 GM/DL (6.4-8.2); TROPONIN I < 0.02 NG/ML (< 0.10)
[2017-10-07 02:51] LABS: CK-MB VALUE MASS 2.2 NG/ML (<3.6); MB/CK RELATIVE INDEX 1.89 (< OR =4)
[2017-10-07] MEDS: NS 500 ML IV (04:15)
[2017-10-07 05:17] LABS: APPEARANCE, URINE CLEAR (CLEAR); BACTERIA, URINE AUTO NEGATIVE (NEGATIVE); BILIRUBIN, URINE AUTO NEGATIVE (NEGATIVE); BLOOD, URINE BLOOD NEGATIVE (NEGATIVE); COLOR, URINE YELLOW (YELLOW); GLUCOSE, URINE (UA) AUTO NEGATIVE (NEGATIVE); KETONE, URINE AUTO NEGATIVE (NEGATIVE); LEUKOCYTE ESTERASE, URINE AUTO 1+ (NEGATIVE); NITRITE, URINE AUTO NEGATIVE (NEGATIVE); PROTEIN, URINE AUTO NEGATIVE (NEGATIVE); RBC, URINE AUTO 2 /HPF (0-3); SPECIFIC GRAVITY URINE AUTO 1.009 (1.002-1.035); SQUAMOUS EPITHELIAL CELL UR AU 0 /HPF (0-6); UROBILINOGEN, URINE AUTO 0.2 mg/dL (0.0-2.0); WBC, URINE AUTO 8 /HPF (0-3)
== END 2017-10-07 05:46 | disposition home or self-care (01) ==
LOC: M ED 00:20
DX: E86.0 Dehydration (principal); M79.602 Pain in left arm; R01.1 Cardiac murmur, unspecified; I10 Essential (primary) hypertension; M19.90 Unspecified osteoarthritis, unspecified site; M81.0 Age-related osteoporosis without current pathological fracture; Z88.1 Allergy status to other antibiotic agents; Z88.2 Allergy status to sulfonamides; Z88.8 Allergy status to other drugs, medicaments and biological substances; Z79.899 Other long term (current) drug therapy
CPT/HCPCS: 93005

== ENCOUNTER → 2017-10-19 | Outpatient (REF) | payer MEDICARE, OTHER ==
[2017-10-19 19:32] LABS: ANION GAP 10 MEQ/L (8-16); BLOOD UREA NITROGEN 23 MG/DL (7-18); CALCIUM LEVEL 8.9 MG/DL (8.8-10.2); CARBON DIOXIDE LEVEL 28 MEQ/L (21-32); CHLORIDE LEVEL 104 MEQ/L (98-107); CREATININE FOR GFR 1.01 MG/DL (0.55-1.30); GLOMERULAR FILTRATION RATE 55.1 (>32); GLUCOSE, FASTING 70 MG/DL (70-100); POTASSIUM SERUM 4.3 MEQ/L (3.5-5.1); SODIUM LEVEL 142 MEQ/L (136-145)
== END ==
LOC: M SFHCADAM 14:09
DX: I87.2 Venous insufficiency (chronic) (peripheral) (principal)
CPT/HCPCS: 80048

== ENCOUNTER 2017-12-02 05:48 | Day surgery (SDC) | payer MEDICARE, OTHER ==
[2017-12-02] MEDS ORDERED: LIDOCAINE 1% MDV 20ML VIAL SQ (06:00)
[2017-12-02 06:27] LABS: HEMATOCRIT 41.7 % (36.0-47.0); HEMOGLOBIN 13.4 g/dl (12.0-15.5); MEAN CORPUSCULAR HEMOGLOBIN 29.2 pg (27.0-33.0); MEAN CORPUSCULAR HGB CONC 32.1 g/dl (32.0-36.5); MEAN CORPUSCULAR VOLUME 90.8 fl (80.0-96.0); PLATELET COUNT, AUTOMATED 191 10^3/uL (150-450); RED BLOOD COUNT 4.59 10^6/uL (4.00-5.40); RED CELL DISTRIBUTION WIDTH 14.3 % (11.5-14.5); WHITE BLOOD COUNT 5.8 10^3/uL (4.0-10.0)
[2017-12-02] MEDS: LR 1,000 ML IV (07:03)
[2017-12-02] MEDS ORDERED: dexameTHASONE 4 MG/ML 1ML VIAL (J1100) As Ordered (07:16)
[2017-12-02] MEDS ORDERED: PROPOFOL 200 MG/20 ML VIAL As Ordered (07:16)
[2017-12-02] MEDS ORDERED: LIDOCAINE 2% INJ 100 MG/5 ML SDV (FOR ANES.) As Ordered (07:16)
[2017-12-02] MEDS ORDERED: fentaNYL 100 MCG/2 ML INJECTION (J3010) As Ordered (07:16)
[2017-12-02] MEDS ORDERED: ONDANSETRON 4MG/2ML VIAL (J2405) As Ordered (07:16)
[2017-12-02] MEDS ORDERED: MIDAZOLAM INJ 2 MG/2 ML VIAL (J2250) As Ordered (07:17)
[2017-12-02] MEDS: ACETAMINOPHEN 650 MG SUPP As Ordered (07:50)
[2017-12-02] MEDS ORDERED: ePHEDrine SULFATE 25 MG/5 ML(5MG/ML) SYRINGE As Ordered (07:55)
[2017-12-02] MEDS ORDERED: ONDANSETRON 4MG/2ML VIAL (J2405) IV (08:30)
[2017-12-02] MEDS ORDERED: PERCOCET 5MG/325MG TAB PO ×2 (08:30)
[2017-12-02] MEDS ORDERED: LR 1,000 ML IV (08:30)
[2017-12-02] MEDS ORDERED: fentaNYL 100 MCG/2 ML INJECTION (J3010) IV (08:30)
[2017-12-02] MEDS ORDERED: METOCLOPRAMIDE INJ 10MG/2ML VIAL (J2765) IV (08:30)
[2017-12-02] MEDS ORDERED: IBUPROFEN 800 MG TAB PO (09:00)
== END 2017-12-02 10:05 | disposition home or self-care (01) ==
LOC: M SDC 05:48
DX: N85.00 Endometrial hyperplasia, unspecified (principal); Z85.3 Personal history of malignant neoplasm of breast; Z79.899 Other long term (current) drug therapy; I25.10 Atherosclerotic heart disease of native coronary artery without angina pectoris; I25.2 Old myocardial infarction; I10 Essential (primary) hypertension; E78.5 Hyperlipidemia, unspecified; Z92.3 Personal history of irradiation; Z79.82 Long term (current) use of aspirin
CPT/HCPCS: 58558

== ENCOUNTER → 2017-12-07 | Outpatient (CLI) | payer MEDICARE, OTHER | LOC: M ONCR 12:56 | DX: C50.412 Malignant neoplasm of upper-outer quadrant of left female breast (principal) | CPT/HCPCS: G0463 ==

== ENCOUNTER 2017-12-20 08:02 | Emergency (ER) | payer MEDICARE, OTHER ==
[2017-12-20 08:58] LABS: BASO % 0.8 % (0.0-1.0); EOS # 0.1 10^3/uL (0.0-0.50); EOS % 1.4 % (0.0-3.0); HEMATOCRIT 38.9 % (36.0-47.0); HEMOGLOBIN 12.6 g/dl (12.0-15.5); IMMATURE GRANULOCYTE % 0.3 % (0-3.0); LYMPH # 1.1 10^3/uL (1.5-4.5); LYMPH % 30.2 % (24.0-44.0); MEAN CORPUSCULAR HEMOGLOBIN 29.5 pg (27.0-33.0); MEAN CORPUSCULAR HGB CONC 32.4 g/dl (32.0-36.5); MEAN CORPUSCULAR VOLUME 91.1 fl (80.0-96.0); MONO # 0.5 10^3/uL (0.0-0.8); MONO % 12.7 % (0.0-5.0); NEUTROPHILS % 54.6 % (36.0-66.0); PLATELET COUNT, AUTOMATED 139 10^3/uL (150-450); RED BLOOD COUNT 4.27 10^6/uL (4.00-5.40); RED CELL DISTRIBUTION WIDTH 14.3 % (11.5-14.5); WHITE BLOOD COUNT 3.6 10^3/uL (4.0-10.0)
[2017-12-20] MEDS: METOPROLOL TART 50 MG TAB PO (09:18)
[2017-12-20 09:41] LABS: ANION GAP 2 MEQ/L (8-16); BLOOD UREA NITROGEN 18 MG/DL (7-18); CALCIUM LEVEL 8.8 MG/DL (8.8-10.2); CARBON DIOXIDE LEVEL 31 MEQ/L (21-32); CHLORIDE LEVEL 107 MEQ/L (98-107); CPK CREATINE PHOSPHOKINASE 108 U/L (26-192); CREATININE FOR GFR 1.01 MG/DL (0.55-1.30); GLOMERULAR FILTRATION RATE 54.9 (>32); GLUCOSE, FASTING 96 MG/DL (70-100); MB/CK RELATIVE INDEX 1.67 (< OR =4); NT-PRO BNP 1448 PG/ML (<450); POTASSIUM SERUM 4.3 MEQ/L (3.5-5.1); SODIUM LEVEL 140 MEQ/L (136-145); THYROID STIMULATING HORMONE 0.378 uIU/ML (0.358-3.740); TROPONIN I < 0.02 NG/ML (< 0.10)
== END 2017-12-20 11:01 | disposition home or self-care (01) ==
LOC: M ED 08:02
DX: R06.02 Shortness of breath (principal); I25.10 Atherosclerotic heart disease of native coronary artery without angina pectoris; I50.9 Heart failure, unspecified; E78.5 Hyperlipidemia, unspecified; E55.9 Vitamin D deficiency, unspecified; M81.0 Age-related osteoporosis without current pathological fracture; H81.09 Meniere's disease, unspecified ear; I47.1 Supraventricular tachycardia; Z85.3 Personal history of malignant neoplasm of breast; Z86.19 Personal history of other infectious and parasitic diseases; I51.7 Cardiomegaly; Z79.82 Long term (current) use of aspirin; Z79.899 Other long term (current) drug therapy; Z88.2 Allergy status to sulfonamides; Z88.8 Allergy status to other drugs, medicaments and biological substances; Z88.1 Allergy status to other antibiotic agents
CPT/HCPCS: 71046

== ENCOUNTER → 2017-12-22 | Outpatient (CLI) | payer MEDICARE, OTHER | LOC: M RAD 12:31 | DX: M79.89 Other specified soft tissue disorders (principal) | CPT/HCPCS: 93971 ==

== ENCOUNTER 2017-12-24 08:26 | Emergency (ER) | payer MEDICARE, OTHER ==
[2017-12-24 09:14] LABS: BASO % 0.4 % (0.0-1.0); EOS # 0.1 10^3/uL (0.0-0.50); EOS % 1.3 % (0.0-3.0); HEMATOCRIT 38.9 % (36.0-47.0); HEMOGLOBIN 12.7 g/dl (12.0-15.5); IMMATURE GRANULOCYTE % 0.2 % (0-3.0); LYMPH # 1.2 10^3/uL (1.5-4.5); LYMPH % 24.3 % (24.0-44.0); MEAN CORPUSCULAR HEMOGLOBIN 29.6 pg (27.0-33.0); MEAN CORPUSCULAR HGB CONC 32.6 g/dl (32.0-36.5); MEAN CORPUSCULAR VOLUME 90.7 fl (80.0-96.0); MONO # 0.4 10^3/uL (0.0-0.8); MONO % 8.6 % (0.0-5.0); NEUTROPHILS # 3.1 10^3/uL (1.8-7.7); NEUTROPHILS % 65.2 % (36.0-66.0); PLATELET COUNT, AUTOMATED 158 10^3/uL (150-450); RED BLOOD COUNT 4.29 10^6/uL (4.00-5.40); RED CELL DISTRIBUTION WIDTH 14.3 % (11.5-14.5); WHITE BLOOD COUNT 4.7 10^3/uL (4.0-10.0)
[2017-12-24 09:34] LABS: ALBUMIN 3.3 GM/DL (3.2-5.2); ALKALINE PHOSPHATASE 36 U/L (45-117); ALT/SGPT 19 U/L (12-78); ANION GAP 7 MEQ/L (8-16); AST/SGOT 22 U/L (7-37); BILIRUBIN,DIRECT 0.3 MG/DL (0.0-0.2); BILIRUBIN,TOTAL 0.8 MG/DL (0.2-1.0); BLOOD UREA NITROGEN 20 MG/DL (7-18); CALCIUM LEVEL 8.8 MG/DL (8.8-10.2); CARBON DIOXIDE LEVEL 28 MEQ/L (21-32); CHLORIDE LEVEL 109 MEQ/L (98-107); CPK CREATINE PHOSPHOKINASE 97 U/L (26-192); CREATININE FOR GFR 1.06 MG/DL (0.55-1.30); GLUCOSE, FASTING 104 MG/DL (70-100); MB/CK RELATIVE INDEX 1.75 (< OR =4); NT-PRO BNP 1546 PG/ML (<450); POTASSIUM SERUM 3.9 MEQ/L (3.5-5.1); SODIUM LEVEL 144 MEQ/L (136-145); TOTAL PROTEIN 6.6 GM/DL (6.4-8.2); TROPONIN I < 0.02 NG/ML (< 0.10)
[2017-12-24] MEDS ORDERED: ISOVUE-370 76% 100ML VIAL (Q9967) As Ordered ×2 (09:35)
== END 2017-12-24 10:49 | disposition home or self-care (01) ==
LOC: M ED 08:26
DX: F41.9 Anxiety disorder, unspecified (principal); I50.9 Heart failure, unspecified; E78.5 Hyperlipidemia, unspecified; I11.0 Hypertensive heart disease with heart failure; I10 Essential (primary) hypertension
CPT/HCPCS: Q9967

== ENCOUNTER 2017-12-25 08:26 | Emergency (ER) | payer MEDICARE, OTHER ==
[2017-12-25 09:16] LABS: BASO % 0.6 % (0.0-1.0); EOS # 0.1 10^3/uL (0.0-0.50); EOS % 1.9 % (0.0-3.0); HEMATOCRIT 40.4 % (36.0-47.0); HEMOGLOBIN 13.1 g/dl (12.0-15.5); IMMATURE GRANULOCYTE % 0.2 % (0-3.0); LYMPH # 1.4 10^3/uL (1.5-4.5); LYMPH % 26.6 % (24.0-44.0); MEAN CORPUSCULAR HEMOGLOBIN 29.1 pg (27.0-33.0); MEAN CORPUSCULAR HGB CONC 32.4 g/dl (32.0-36.5); MEAN CORPUSCULAR VOLUME 89.8 fl (80.0-96.0); MONO # 0.5 10^3/uL (0.0-0.8); MONO % 10.1 % (0.0-5.0); NEUTROPHILS # 3.2 10^3/uL (1.8-7.7); NEUTROPHILS % 60.6 % (36.0-66.0); PLATELET COUNT, AUTOMATED 194 10^3/uL (150-450); RED CELL DISTRIBUTION WIDTH 14.3 % (11.5-14.5); WHITE BLOOD COUNT 5.3 10^3/uL (4.0-10.0)
[2017-12-25 10:15] LABS: ALBUMIN 3.3 GM/DL (3.2-5.2); ALBUMIN/GLOBULIN RATIO 0.83 (1.00-1.93); ALKALINE PHOSPHATASE 34 U/L (45-117); ALT/SGPT 18 U/L (12-78); ANION GAP 3 MEQ/L (8-16); AST/SGOT 31 U/L (7-37); BILIRUBIN,DIRECT 0.3 MG/DL (0.0-0.2); BILIRUBIN,TOTAL 0.8 MG/DL (0.2-1.0); BLOOD UREA NITROGEN 18 MG/DL (7-18); CALCIUM LEVEL 8.9 MG/DL (8.8-10.2); CARBON DIOXIDE LEVEL 29 MEQ/L (21-32); CHLORIDE LEVEL 107 MEQ/L (98-107); CPK CREATINE PHOSPHOKINASE 119 U/L (26-192); CREATININE FOR GFR 1.04 MG/DL (0.55-1.30); FREE THYROXINE INDEX 2.6 % (1.3-4.8); GLOMERULAR FILTRATION RATE 53.1 (>32); GLUCOSE, FASTING 90 MG/DL (70-100); LIPASE 221 U/L (73-393); MAGNESIUM LEVEL 2.3 MG/DL (1.8-2.4); MB/CK RELATIVE INDEX 1.51 (< OR =4); POTASSIUM SERUM 4.7 MEQ/L (3.5-5.1); SODIUM LEVEL 139 MEQ/L (136-145); T UPTAKE 32 % (30-39); THYROID STIMULATING HORMONE 0.553 uIU/ML (0.358-3.740); THYROXINE (T4) 8.2 UG/DL (4.5-12.0); TOTAL PROTEIN 7.3 GM/DL (6.4-8.2); TROPONIN I < 0.02 NG/ML (< 0.10)
[2017-12-25 10:37] LABS: KETONE, URINE AUTO RFX NEGATIVE (NEGATIVE); LEUKOCYTE ESTERASE UR AUTO RFX NEGATIVE (NEGATIVE); MUCUS, URINE RFX SMALL (NEGATIVE); NITRITE, URINE AUTO RFX NEGATIVE (NEGATIVE); RBC, URINE AUTO RFX 1 /HPF (0-3); SQUAM EPITHELIAL CELL UR AURFX 0 /HPF (0-6); WBC, URINE AUTO RFX 1 /HPF (0-3)
[2017-12-25 13:14] LABS: C REACTIVE PROTEIN QUANTITATIV < 0.30 MG/DL (0.00-0.30)
[2017-12-25 13:33] LABS: ERYTHROCYTE SEDIMENTATION RATE 6 mm/hr (0-42)
== END 2017-12-25 13:57 | disposition home or self-care (01) ==
LOC: M ED 08:26
DX: R53.1 Weakness (principal); R00.1 Bradycardia, unspecified; R94.31 Abnormal electrocardiogram [ECG] [EKG]; I50.9 Heart failure, unspecified; I11.0 Hypertensive heart disease with heart failure; E78.5 Hyperlipidemia, unspecified; M19.90 Unspecified osteoarthritis, unspecified site; Z85.3 Personal history of malignant neoplasm of breast; Z88.1 Allergy status to other antibiotic agents; Z88.8 Allergy status to other drugs, medicaments and biological substances; Z88.2 Allergy status to sulfonamides; Z79.899 Other long term (current) drug therapy; Z79.82 Long term (current) use of aspirin
CPT/HCPCS: 93005

== ENCOUNTER 2018-02-19 09:55 | Emergency (ER) | payer MEDICARE, OTHER ==
[2018-02-19 10:28] LABS: BASO # 0.1 10^3/uL (0.0-0.2); BASO % 0.8 % (0.0-1.0); EOS # 0.1 10^3/uL (0.0-0.50); HEMATOCRIT 40.5 % (36.0-47.0); HEMOGLOBIN 13.1 g/dl (12.0-15.5); IMMATURE GRANULOCYTE % 0.3 % (0-3.0); LYMPH # 1.3 10^3/uL (1.5-4.5); MEAN CORPUSCULAR HEMOGLOBIN 30.1 pg (27.0-33.0); MEAN CORPUSCULAR HGB CONC 32.3 g/dl (32.0-36.5); MEAN CORPUSCULAR VOLUME 93.1 fl (80.0-96.0); MONO # 0.6 10^3/uL (0.0-0.8); MONO % 10.2 % (0.0-5.0); NEUTROPHILS # 4.3 10^3/uL (1.8-7.7); NEUTROPHILS % 67.7 % (36.0-66.0); PLATELET COUNT, AUTOMATED 218 10^3/uL (150-450); RED BLOOD COUNT 4.35 10^6/uL (4.00-5.40); RED CELL DISTRIBUTION WIDTH 13.4 % (11.5-14.5); WHITE BLOOD COUNT 6.3 10^3/uL (4.0-10.0)
[2018-02-19 11:23] LABS: ALBUMIN 3.3 GM/DL (3.2-5.2); ALKALINE PHOSPHATASE 34 U/L (45-117); ALT/SGPT 17 U/L (12-78); ANION GAP 7 MEQ/L (8-16); AST/SGOT 24 U/L (7-37); BILIRUBIN,DIRECT 0.2 MG/DL (0.0-0.2); BILIRUBIN,TOTAL 0.6 MG/DL (0.2-1.0); BLOOD UREA NITROGEN 19 MG/DL (7-18); CALCIUM LEVEL 8.6 MG/DL (8.8-10.2); CARBON DIOXIDE LEVEL 30 MEQ/L (21-32); CHLORIDE LEVEL 107 MEQ/L (98-107); CPK CREATINE PHOSPHOKINASE 112 U/L (26-192); CREATININE FOR GFR 0.98 MG/DL (0.55-1.30); GLOMERULAR FILTRATION RATE 56.9 (>32); GLUCOSE, FASTING 93 MG/DL (70-100); MB/CK RELATIVE INDEX 1.96 (< OR =4); POTASSIUM SERUM 4.2 MEQ/L (3.5-5.1); SODIUM LEVEL 144 MEQ/L (136-145); THYROID STIMULATING HORMONE 0.216 uIU/ML (0.358-3.740); TOTAL PROTEIN 6.6 GM/DL (6.4-8.2); TROPONIN I < 0.02 NG/ML (< 0.10)
== END 2018-02-19 12:46 | disposition home or self-care (01) ==
LOC: M ED 09:55
DX: J90 Pleural effusion, not elsewhere classified (principal); Z79.899 Other long term (current) drug therapy; Z79.82 Long term (current) use of aspirin; Z88.1 Allergy status to other antibiotic agents; Z88.2 Allergy status to sulfonamides; Z88.8 Allergy status to other drugs, medicaments and biological substances
CPT/HCPCS: 71046

== ENCOUNTER 2018-03-24 07:56 | Emergency (ER) | payer MEDICARE, OTHER ==
[~2018-03-24] VITALS: Ht 154.9 cm; Wt 58.5 kg
[~2018-03-24 07:56] MED LIST changes: +/ONDA4TA OR; +/PANT40TA OR; +/PANT40TA PO; +ACET-683 PO; +ACET1TAB55 PO; +ACET500L PO; +ACET500T15 PO; +ACET650S3 PO; +ACET65SU PR; +ACET65TA OR; +ALBU17IN INH; +AMOX500T2 PO; +AMOX875T2 PO; +AQUAOIN2 TOP; +ASPI1TAB PO; +ASPI81TA83 OR; +ASPI81TA85 PO; +ATEN50TA2 OR; +ATOR40TA75 PO; +AUGM875T28 PO; +BACITAB OR; +BACITAB PO; +BOOSLIQ PO; +BUDE3CAP PO; +CALCCHW12 OR; +CALCTAB9 OR; +CALTRATE 600 + D PO; +CALTTAB11 PO; +CENTCHW3 PO; +CENTTAB PO; +CIPR-249 PO; +CIPRO OR; +CLEO150C PO; +COLA100C5 PO; +DOCU100C16 PO; +DYAZ37.5 OR; -ENOXAPARIN 40 MG/0.4 ML SYRINGE (J1650) SC; +ENSULIQ10 PO; +ENSUPOW PO; +ENTO3CAP5 PO; +FERG1TAB PO; +FIRS50SO PO; +FLAG500T OR; +FLAG500T PO; +FLEEENE4 PR; +FLUC10TA PO; +FLUTISP; +FURO20TA2 PO; +KLOR10TA76 PO; +LASI20TA3 PO; +LASI40TA9 PO; +LIDO5DIS41 TD; +LIPI10TA OR; +LIPI20TA PO; +LIPI80TA PO; +LISI10TA4 PO; +LOPR1TAB6 PO; +LORA-243 PO; +LORT5TAB PO; +LOVE1INJ SC; +LYRI75CA PO; +MAGN1TAB25 PO; +MAGN250T PO; +MAGO400T PO; +MECL-68 PO; +MECL-86 PO; +MECL1CHW2 PO; +MELOPOW OR; +METO1TAB87 PO; +METO25TAB PO; +METO50TA7 PO; +METR0.00 TOP; +METR0.7533 TOP; +METRCRM TOP; +METRONIDAZOLE TD; +MICR10CA PO; +MILK120011 PO; +MIRA3350 PO; +MOME50SP; +MULTCAP11 PO; +NYAM10003 EXT; +PERCOCET PO; +POTA1TAB23 PO; +PREG25CA PO; +PROB1TAB PO; +RECL5INJ2 IV; +RECLAST IV IV; +RISATAB3 PO; +SENO8.6T10 PO; +SENO8.6T5 PO; +SYST1SOL OU; +SYSTANE EYE DROPS OU; +SYSTSOL11 OU; +TAMO20TA8 PO; +TRIA37.53 PO; +TYLE167L PO; +TYLE500T78 PO; +VALI5TAB PO; +VANC125C2 PO; +VANC1CAP6 PO; +VITA100066 PO; +VITA100067 PO; +VITAMIN D OR; +VITMTA PO; +WARF05TA PO; +ZOFR4TAB14 PO; +ZOFR4TAB16 PO; +[UNRECOGNIZED DRUG - CODE]; +[UNRECOGNIZED DRUG - CODE] OR; +[UNRECOGNIZED DRUG - CODE] TD; +bactroban TOP; +entocort PO
[2018-03-24 09:17] LABS: BASO % 0.7 % (0.0-1.0); EOS # 0.1 10^3/uL (0.0-0.50); EOS % 1.3 % (0.0-3.0); HEMATOCRIT 38.2 % (36.0-47.0); HEMOGLOBIN 12.4 g/dl (12.0-15.5); LYMPH % 17.1 % (24.0-44.0); MEAN CORPUSCULAR HGB CONC 32.5 g/dl (32.0-36.5); MEAN CORPUSCULAR VOLUME 92.3 fl (80.0-96.0); MONO # 0.8 10^3/uL (0.0-0.8); MONO % 13.9 % (0.0-5.0); NEUTROPHILS # 3.7 10^3/uL (1.8-7.7); NEUTROPHILS % 66.6 % (36.0-66.0); PLATELET COUNT, AUTOMATED 166 10^3/uL (150-450); RED BLOOD COUNT 4.14 10^6/uL (4.00-5.40); WHITE BLOOD COUNT 5.6 10^3/uL (4.0-10.0)
--- NOTE | 2018-03-24 09:21 | REP ---
Chest two views HISTORY: Shortness of breath Comparison: 02/19/2018 The lungs are clear. The cardiac silhouette is enlarged. The pulmonary vasculature is normal in appearance. The bony structure is intact. IMPRESSION: Cardiomegaly. Electronically Signed by Faheem Marks MD 03/24/2018 09:12 A
[2018-03-24 09:42] LABS: BLOOD UREA NITROGEN 17 MG/DL (7-18); CARBON DIOXIDE LEVEL 30 MEQ/L (21-32); CHLORIDE LEVEL 105 MEQ/L (98-107); CPK CREATINE PHOSPHOKINASE 87 U/L (26-192); CREATININE FOR GFR 0.97 MG/DL (0.55-1.30); GLOMERULAR FILTRATION RATE 57.6 (>32); GLUCOSE, FASTING 122 MG/DL (70-100); MB/CK RELATIVE INDEX 1.84 (< OR =4); POTASSIUM SERUM 3.9 MEQ/L (3.5-5.1); SODIUM LEVEL 141 MEQ/L (136-145); TROPONIN I < 0.02 NG/ML (< 0.10)
[2018-03-24 09:51] VITALS: BP 139/65
--- NOTE | 2018-03-24 22:02 | ECGEPIP ---
Stationary ECG Study [facility] Test Date: 2018-03-24 Pat Name: LEA CAMPBELL Department: Room: - Gender: F Manager Steel: enio : 1930 Requested By: RADHA LARSON Order Number: [id number] Reading MD: Alirio Bateman Measurements Intervals [place] Rate: 49 P: 66 KS: 148 QRS: 50 QRSD: 90 T: 64 QT: 433 QTc: 392 Interpretive Statements SINUS BRADYCARDIA MINIMAL ST DEPRESSION Electronically Signed On 03-24-2018 22:02:24 EST by Alirio Bateman
== END 2018-03-24 10:01 | disposition home or self-care (01) ==
LOC: M ED 07:56
DX: R06.02 Shortness of breath (principal); I11.0 Hypertensive heart disease with heart failure; I50.9 Heart failure, unspecified

== ENCOUNTER → 2018-05-19 | Outpatient (REF) | payer MEDICARE, OTHER | LOC: M SFHCPLAZ 12:15 | PROVIDERS: ATTEND Family Medicine | DX: M54.5 Low back pain (principal) | CPT/HCPCS: 81002; 87086; G0463 ==

== ENCOUNTER → 2018-06-13 | Outpatient (CLI) | payer MEDICARE, OTHER ==
[~2018-06-13] MED LIST changes: -/ONDA4TA OR; -/PANT40TA OR; -/PANT40TA PO; -ASPI1TAB PO; +ASPI81TA26 PO; +BUDE3CAP15 PO; -FERG1TAB PO; +FERG27TA PO; -MAGN1TAB25 PO; +MAGN1TAB26 PO; +MECL1CHW PO; -MECL1CHW2 PO; +METO1TAB63 PO; -METO25TAB PO; +ONDA-1 OR; +OXYC1TAB23 PO; +PROT1TAB2 OR; +PROT1TAB2 PO; -VANC125C2 PO; +VANC125C3 PO
[2018-06-13 12:23] LABS: HEMATOCRIT 43.5 % (36.0-47.0); HEMOGLOBIN 13.5 g/dl (12.0-15.5); MEAN CORPUSCULAR HEMOGLOBIN 28.9 pg (27.0-33.0); MEAN CORPUSCULAR VOLUME 93.1 fl (80.0-96.0); PLATELET COUNT, AUTOMATED 187 10^3/uL (150-450); RED BLOOD COUNT 4.67 10^6/uL (4.00-5.40); WHITE BLOOD COUNT 5.2 10^3/uL (4.0-10.0)
[2018-06-13 12:53] LABS: ALBUMIN 3.8 GM/DL (3.2-5.2); BILIRUBIN,TOTAL 0.9 MG/DL (0.2-1.0); CALCIUM LEVEL 9.2 MG/DL (8.8-10.2); CHOLESTEROL RISK RATIO 1.444 (<5); CREATININE FOR GFR 1.01 MG/DL (0.55-1.30); GLOMERULAR FILTRATION RATE 54.9 (>32); POTASSIUM SERUM 4.4 MEQ/L (3.5-5.1); TOTAL PROTEIN 7.1 GM/DL (6.4-8.2)
== END ==
LOC: M SMT 08:21
PROVIDERS: ATTEND Family Medicine
DX: K52.89 Other specified noninfective gastroenteritis and colitis (principal); I11.9 Hypertensive heart disease without heart failure; E78.2 Mixed hyperlipidemia

== ENCOUNTER 2018-06-24 00:56 | Emergency (ER) | payer MEDICARE, OTHER ==
[~2018-06-24] VITALS: Ht 154.9 cm; Wt 54.5 kg
[2018-06-24 02:43] LABS: ABG BASE EXCESS 2.5 (-2.0-2.0); ABG HCO3 27.1 MEQ/L (22.0-26.0); ABG O2 SATURATION 97.2 % (95.0-99.0); ABG PARTIAL PRESSURE CO2 41.6 mmHg (35.0-45.0); ABG PARTIAL PRESSURE O2 88.1 mmHg (75.0-100.0); ABG STANDARD HCO3 26.7 MEQ/L (22.0-26.0); ABG TOTAL CO2 28.3 MEQ/L (23.0-31.0); ABG pH (ARTERIAL) 7.431 UNITS (7.350-7.450)
[2018-06-24 03:03] LABS: BASO % 0.7 % (0.0-1.0); EOS # 0.1 10^3/uL (0.0-0.50); EOS % 1.7 % (0.0-3.0); HEMATOCRIT 38.7 % (36.0-47.0); HEMOGLOBIN 12.6 g/dl (12.0-15.5); LYMPH # 1.8 10^3/uL (1.5-4.5); LYMPH % 29.7 % (24.0-44.0); MEAN CORPUSCULAR HEMOGLOBIN 29.9 pg (27.0-33.0); MEAN CORPUSCULAR HGB CONC 32.6 g/dl (32.0-36.5); MEAN CORPUSCULAR VOLUME 91.9 fl (80.0-96.0); MONO # 0.9 10^3/uL (0.0-0.8); MONO % 15.1 % (0.0-5.0); NEUTROPHILS # 3.2 10^3/uL (1.8-7.7); NEUTROPHILS % 52.5 % (36.0-66.0); PLATELET COUNT, AUTOMATED 176 10^3/uL (150-450); RED BLOOD COUNT 4.21 10^6/uL (4.00-5.40)
[2018-06-24 03:25] LABS: CALCIUM LEVEL 8.8 MG/DL (8.8-10.2); GLOMERULAR FILTRATION RATE 55.6 (>32); POTASSIUM SERUM 3.9 MEQ/L (3.5-5.1)
[2018-06-24] MEDS ORDERED: FUROSEMIDE 100 MG/10 ML VIAL (J1940) IV ONE (03:30)
[2018-06-24 05:30] VITALS: BP 142/67
--- NOTE | 2018-06-24 06:29 | ECGEPIP ---
Stationary ECG Study [facility] - ED Test Date: 2018-06-24 Pat Name: LEA CAMPBELL Department: Room: - Gender: F Computer Console Operator: ANALI : 1930 Requested By: LUH ALBA Order Number: [id number] Reading MD: Jaron Metzger Measurements Intervals [place] Rate: 70 P: 89 DE: 148 QRS: 59 QRSD: 102 T: 77 QT: 399 QTc: 432 Interpretive Statements SINUS RHYTHM NSTTW ABNORMALITIES SIMILAR TO 03/24/18 Electronically Signed On 06-24-2018 6:29:01 EDT by Jaron Metzger
--- NOTE | 2018-06-24 08:01 | REP ---
Chest x-ray: Two views. History: Shortness of breath. Comparison study: March 24, 2018. Findings: EKG monitoring electrodes overlie the chest. Mild cardiac enlargement is noted. Cardiothoracic ratio measures 53.2%. Pulmonary vasculature is not increased. Pleural angles are sharp. There is no evidence of pulmonary edema. No infiltrate is seen. Thoracic kyphosis is somewhat exaggerated and there is diffuse degenerative disc disease. Impression: Cardiomegaly. Mild hyperinflation. Otherwise no acute disease. Electronically Signed by Ajith Pastrana MD 06/24/2018 07:53 A
== END 2018-06-24 05:52 | disposition home or self-care (01) ==
LOC: M ED 00:56
DX: I50.9 Heart failure, unspecified (principal); E78.5 Hyperlipidemia, unspecified; I25.2 Old myocardial infarction; K57.92 Diverticulitis of intestine, part unspecified, without perforation or abscess without bleeding; Z90.49 Acquired absence of other specified parts of digestive tract; I51.7 Cardiomegaly; Z79.82 Long term (current) use of aspirin; Z79.899 Other long term (current) drug therapy; Z88.2 Allergy status to sulfonamides; Z88.8 Allergy status to other drugs, medicaments and biological substances; Z88.1 Allergy status to other antibiotic agents
CPT/HCPCS: 36415; 36600; 71046; 80048; 82803; 83880; 85025; 93005; 93041; 96374; 99285; J1940

== ENCOUNTER 2018-06-29 15:34 | Inpatient (IN) | payer MEDICARE, OTHER ==
--- NOTE | 2018-06-29 17:18 | HPE ---
DATE OF ADMISSION: 06/29/2018 Katarzyna's history and physical was generated in the office, the patient's electronic medical record and a copy was sent to the hospital with the patient.
[2018-06-29 17:30] VITALS: BP 188/82
[2018-06-29] MEDS ORDERED: FURO20TA2 PO (17:54)
[2018-06-29] MEDS ORDERED: VITAD1000T PO (17:54)
[2018-06-29] MEDS ORDERED: MULT1TAB50 PO (17:54)
[2018-06-29 17:55] LABS: HEMATOCRIT 41.2 % (36.0-47.0); HEMOGLOBIN 13.3 g/dl (12.0-15.5); MEAN CORPUSCULAR HEMOGLOBIN 29.2 pg (27.0-33.0); MEAN CORPUSCULAR HGB CONC 32.3 g/dl (32.0-36.5); MEAN CORPUSCULAR VOLUME 90.4 fl (80.0-96.0); PLATELET COUNT, AUTOMATED 190 10^3/uL (150-450); RED BLOOD COUNT 4.56 10^6/uL (4.00-5.40); WHITE BLOOD COUNT 7.5 10^3/uL (4.0-10.0)
[2018-06-29] MEDS ORDERED: SPIR-10 PO (17:56)
[2018-06-29 18:22] LABS: ALBUMIN 3.7 GM/DL (3.2-5.2); ALT/SGPT 20 U/L (12-78); BILIRUBIN,TOTAL 0.7 MG/DL (0.2-1.0); BLOOD UREA NITROGEN 21 MG/DL (7-18); CALCIUM LEVEL 9.3 MG/DL (8.8-10.2); CARBON DIOXIDE LEVEL 30 MEQ/L (21-32); CHLORIDE LEVEL 104 MEQ/L (98-107); CPK CREATINE PHOSPHOKINASE 151 U/L (26-192); CREATININE FOR GFR 1.16 MG/DL (0.55-1.30); GLOMERULAR FILTRATION RATE 46.8 (>32); GLUCOSE, FASTING 93 MG/DL (70-100); MB/CK RELATIVE INDEX 1.52 (< OR =4); NT-PRO BNP 2431 PG/ML (<450); POTASSIUM SERUM 3.8 MEQ/L (3.5-5.1); SODIUM LEVEL 140 MEQ/L (136-145); TOTAL PROTEIN 7.1 GM/DL (6.4-8.2); TROPONIN I < 0.02 NG/ML (< 0.10)
[2018-06-29] MEDS ORDERED: NITROGLYCERIN 2% OINT 1 GM *U/D* PKT TOP SCH (20:15)
[2018-06-29 20:28] VITALS: BP 160/72
[2018-06-29] MEDS: FUROSEMIDE 100 MG/10 ML VIAL (J1940) IV SCH (20:31)
[2018-06-29] MEDS: NITROGLYCERIN 2% OINT 1 GM *U/D* PKT TOP SCH (20:58)
[2018-06-29] MEDS: ATORVASTATIN 20 MG TAB PO SCH (20:58)
[2018-06-29] MEDS: METOPROLOL TART 50 MG TAB PO SCH (20:59)
[2018-06-29] MEDS: POTASSIUM CHLORIDE 10 MEQ SR TABLET PO SCH (20:59)
[2018-06-29 23:22] LABS: CPK CREATINE PHOSPHOKINASE 118 U/L (26-192); MB/CK RELATIVE INDEX 1.69 (< OR =4); TROPONIN I < 0.02 NG/ML (< 0.10)
[2018-06-30] VITALS (9 sets, daily range): BP systolic 84–133; BP diastolic 44–71
[2018-06-30] MEDS: FUROSEMIDE 100 MG/10 ML VIAL (J1940) IV SCH ×2 (01:24→06:38)
[2018-06-30] MEDS: NITROGLYCERIN 2% OINT 1 GM *U/D* PKT TOP SCH ×4 (01:27→18:00)
[2018-06-30 05:27] LABS: HEMATOCRIT 40.6 % (36.0-47.0); HEMOGLOBIN 13.1 g/dl (12.0-15.5); MEAN CORPUSCULAR HEMOGLOBIN 29.1 pg (27.0-33.0); MEAN CORPUSCULAR HGB CONC 32.3 g/dl (32.0-36.5); MEAN CORPUSCULAR VOLUME 90.2 fl (80.0-96.0); PLATELET COUNT, AUTOMATED 181 10^3/uL (150-450); WHITE BLOOD COUNT 5.9 10^3/uL (4.0-10.0)
[2018-06-30 05:47] LABS: BLOOD UREA NITROGEN 22 MG/DL (7-18); CALCIUM LEVEL 8.7 MG/DL (8.8-10.2); CARBON DIOXIDE LEVEL 30 MEQ/L (21-32); CHLORIDE LEVEL 105 MEQ/L (98-107); CPK CREATINE PHOSPHOKINASE 107 U/L (26-192); CREATININE FOR GFR 1.05 MG/DL (0.55-1.30); GLOMERULAR FILTRATION RATE 52.5 (>32); GLUCOSE, FASTING 86 MG/DL (70-100); POTASSIUM SERUM 3.5 MEQ/L (3.5-5.1); SODIUM LEVEL 141 MEQ/L (136-145); TROPONIN I < 0.02 NG/ML (< 0.10)
--- NOTE | 2018-06-30 07:15 | REP ---
PA and lateral chest: Comparison is 06/24/2018. There is no pulmonary edema. There are no pleural effusions. Lung betancur are clear but hyperinflated, unchanged. Cardiac size is upper normal, unchanged. The ayo and mediastinum are unchanged. There is mild thoracic scoliosis convex right, unchanged. Impression: No acute cardiopulmonary findings. No interval change. Electronically Signed by Sammy Ervin MD 06/30/2018 07:07 A
[2018-06-30] MEDS: ENOXAPARIN 30 MG/0.3 ML SYR (J1650) SC SCH (09:27)
[2018-06-30] MEDS: SPIRONOLACTONE 12.5MG PER 1/2 TABLET PO SCH (09:29)
[2018-06-30] MEDS: METOPROLOL TART 50 MG TAB PO SCH ×2 (09:29→20:44)
[2018-06-30] MEDS: TAMOXIFEN CITRATE 10 MG TAB PO SCH (09:31)
[2018-06-30] MEDS: POTASSIUM CHLORIDE 10 MEQ SR TABLET PO SCH ×2 (09:32→20:43)
--- NOTE | 2018-06-30 09:53 | IPNPDOC ---
Subjective Date Seen The patient was seen on 06/30/18. Subjective Chief Complaint/HPI no cough, no dyispnea, no headache, no dizziness Constitutional: Denies: Chills, Malaise, Night Sweats ENT: Denies: Head Aches Pulmonary: Denies: Dyspnea, Cough, Pleuritic Chest Pain Cardiovascular: Denies: Chest Pain, Orthopnea Gastrointestinal: Denies: Nausea, Vomiting, Abdominal Pain Genitourinary: Denies: Dysuria, Incontinence Neurological: Denies: Weakness, Confusion Psych: Reports: Mood Normal Objective Physical Examination General Exam: Positive: Alert Eye Exam: Positive: PERRLA, EOMI ENT Exam: Positive: Atraumatic Neck Exam: Positive: Supple, thyromegaly; Negative: Lymphadenopathy Chest Exam: Positive: Clear to auscultation, Diminished Heart Exam: Positive: Rate Normal, Regular Rhythm; Negative: Murmurs Abdomen Exam: Positive: Normal bowel sounds, Soft Extremity Exam: Negative: Clubbing, Edema Skin Exam: Positive: Nl turgor and temperature; Negative: Rash Neuro Exam: Positive: Normal Speech, Sensation Intact Psych Exam: Positive: Mental status NL Assessment /Plan Problems (1) Heart failure with preserved ejection fraction Status: Acute Response to Treatment: Improving Problem Text: much improved since yesterday. had been in ED a few days before, improved after IV lasix and sent home much worse yesterday at Dr. Rodriguez's office than when in ED so admitted directly. 60 lasix q6 for net negative ordered. has had net of 1.2 L neg since admission. now feels much better and lungs are clear. Echo ordered. in the past had preserved EF. will change to po lasix 40 bid for now. (2) HTN (hypertension) Status: Chronic Response to Treatment: Improving Problem Text: had elevated pressures in office so concern for renovascular htn, renal art u/s doppler ordered. couldn't be done this am due to no prep (NPO needed) will do tomorrow. Plan/VTE VTE Prophylaxis Ordered?: Yes VS, I&O, 24H, Fishbone Vital Signs/I&O Vital Signs Date Time Temp Pulse Resp B/P (MAP) Pulse Ox O2 Delivery O2 Flow Rate FiO2 06/30/18 09:29 69 128/60 06/30/18 08:00 98.7 18 96 I&O- Last 24 Hours up to 6 AM 06/30/18 06:00 Intake Total 300 ml Output Total 1000 ml Balance -700 ml Laboratory Data 24H LABS Laboratory Tests 2 06/29/18 17:41: Nucleated Red Blood Cells % (auto) 0.0, Anion Gap 6L, Glomerular Filtration Rate 46.8, Blood Urea Nitrogen 21H, Creatinine 1.16, Sodium Level 140, Potassium Level 3.8, Chloride Level 104, Carbon Dioxide Level 30, Calcium Level 9.3, Aspartate Amino Transf (AST/SGOT) 29, Alanine Aminotransferase (ALT/SGPT) 20, Total Creatine Kinase 151, Alkaline Phosphatase 39L, Total Bilirubin 0.7, Total Protein 7.1, Albumin 3.7, Creatine Kinase MB 2.0, Creatine Kinase MB Relative Index 1.52, Troponin I < 0.02, JN-Jjq-[id number]-Type Natriuretic Peptide 2431H, Alb umin/Globulin Ratio 1.09 06/29/18 22:40: Total Creatine Kinase 118, Creatine Kinase MB 2.0, Creatine Kinase MB Relative Index 1.69, Troponin I < 0.02 06/30/18 05:01: Nucleated Red Blood Cells % (auto) 0.0, Anion Gap 6L, Glomerular Filtration Rate 52.5, Blood Urea Nitrogen 22H, Creatinine 1.05, Sodium Level 141, Potassium Level 3.5, Chloride Level 105, Carbon Dioxide Level 30, Calcium Level 8.7L, Total Creatine Kinase 107, Creatine Kinase MB 2.0, Creatine Kinase MB Relative Index 1.50, Troponin I < 0.02 CBC/BMP Laboratory Tests 06/29/18 17:41 Red Blood Count 4.56, Mean Corpuscular Volume 90.4, Mean Corpuscular Hemoglobin 29.2, Mean Corpuscular Hemoglobin Concent 32.3, Red Cell Distribution Width 13.8, Calcium Level 9.3, Aspartate Amino Transf (AST/SGOT) 29, Alanine Aminotransferase (ALT/SGPT) 20, Total Creatine Kinase 151, Alkaline Phosphatase 39 L, Total Bilirubin 0.7, Total Protein 7.1, Albumin 3.7 06/30/18 05:01 Red Blood Count 4.50, Mean Corpuscular Volume 90.2, Mean Corpuscular Hemoglobin 29.1, Mean Corpuscular Hemoglobin Concent 32.3, Red Cell Distribution Width 13.8, Calcium Level 8.7 L, Total Creatine Kinase 107 Liban English MD Jun 30, 2018 09:53
[2018-06-30] MEDS: ACETAMINOPHEN TAB 650MG DOSE (2X325MG) PO PRN (12:43)
--- NOTE | 2018-06-30 13:06 | ECGEPIP ---
Stationary ECG Study [facility] Test Date: 2018-06-29 Pat Name: LEA CAMPBELL Department: Room: [place] [address] Gender: F Materials Intern: MARJORIE : 1930 Requested By: José Antonio Rodriguez Order Number: [id number] Reading MD: Geoff Harrington Measurements Intervals [place] Rate: 74 P: 95 ND: 150 QRS: 59 QRSD: 90 T: 70 QT: 395 QTc: 441 Interpretive Statements Normal sinus rhythm. Isolated PVC. LA conduction disturbance. Prominent voltage and strain pattern in keeping with LVH No change from 06/24/18 Electronically Signed On 06-30-2018 13:05:36 EDT by Geoff Harrington
[2018-06-30 15:18] LABS: BLOOD UREA NITROGEN 27 MG/DL (7-18); CARBON DIOXIDE LEVEL 32 MEQ/L (21-32); CHLORIDE LEVEL 103 MEQ/L (98-107); CPK CREATINE PHOSPHOKINASE 99 U/L (26-192); CREATININE FOR GFR 1.29 MG/DL (0.55-1.30); GLOMERULAR FILTRATION RATE 41.4 (>32); GLUCOSE, FASTING 120 MG/DL (70-100); MAGNESIUM LEVEL 2.1 MG/DL (1.8-2.4); MB/CK RELATIVE INDEX 1.52 (< OR =4); POTASSIUM SERUM 3.8 MEQ/L (3.5-5.1); SODIUM LEVEL 140 MEQ/L (136-145); TROPONIN I < 0.02 NG/ML (< 0.10)
[2018-06-30] MEDS: FUROSEMIDE 40 MG TAB PO SCH (17:08)
[2018-06-30] MEDS: ATORVASTATIN 20 MG TAB PO SCH (20:43)
[2018-07-01] VITALS (9 sets, daily range): BP systolic 97–163; BP diastolic 54–85
[2018-07-01 05:51] LABS: HEMATOCRIT 40.1 % (36.0-47.0); HEMOGLOBIN 13.2 g/dl (12.0-15.5); MEAN CORPUSCULAR HEMOGLOBIN 29.7 pg (27.0-33.0); MEAN CORPUSCULAR HGB CONC 32.9 g/dl (32.0-36.5); MEAN CORPUSCULAR VOLUME 90.3 fl (80.0-96.0); PLATELET COUNT, AUTOMATED 171 10^3/uL (150-450); RED BLOOD COUNT 4.44 10^6/uL (4.00-5.40); WHITE BLOOD COUNT 5.8 10^3/uL (4.0-10.0)
[2018-07-01 06:14] LABS: CALCIUM LEVEL 8.8 MG/DL (8.8-10.2); CREATININE FOR GFR 1.15 MG/DL (0.55-1.30); GLOMERULAR FILTRATION RATE 47.3 (>32); POTASSIUM SERUM 3.5 MEQ/L (3.5-5.1)
--- NOTE | 2018-07-01 07:20 | ECHO ---
DATE OF STUDY: 06/29/2018 AGE: 87 REFERRING PROVIDER: Dr. Joés Antonio Rodriguez PATIENT LOCATION: Room 3217 REASON FOR ECHOCARDIOGRAM: Shortness of breath. 2D MEASUREMENTS: IVS: 1.1 cm LV: 4.0 cm LVPW: 0.8 cm LA: 3.8 cm Aorta: 2.8 cm IVC: 1.4 cm DOPPLER MEASUREMENTS: Peak velocity across the aortic valve: 1.4 m/s Peak velocity across the LVOT: 1.2 m/s Mitral E: 0.72 Mitral A: 0.39 with a ratio of 1.8 Maximum tricuspid valve velocity: 2.8 m/s 2D COMMENTS: 1. Normal left ventricular size, wall thickness, and normal global left ventricular systolic function. The estimated global left ventricular systolic ejection fraction is 60-65%. 2. Subjectively, the left atrium appeared to be mildly enlarged. Normal right atrium and right ventricle. 3. The atrial septum revealed a small color flow jet noted at the level of the fossa ovalis with possible left to right shunt. 4. Normal aortic root. 5. No pericardial effusion seen. 6. Mildly calcified aortic valve with normal leaflet excursion. Normal mitral valve, tricuspid valve, and pulmonic valve. The proximal pulmonary artery branches were not well visualized. 7. The inferior vena cava was normal in size, central venous pressure is most likely normal. Doppler, it detects moderate mitral regurgitation, mild tricuspid regurgitation. The calculated pulmonary artery systolic pressure varied between 30 to 40 mmHg. Assessment of the left ventricular diastolic function appeared to be normal. A small color flow jet was noted at the level of the fossa ovalis that may represent a small patent foramen ovale with left to right shunt by Doppler. IMPRESSION: 1. Normal global left ventricular systolic and diastolic function. 2. Aortic valve sclerosis without stenosis or aortic regurgitation. 3. Moderate mitral regurgitation. Subjectively, the left atrium appeared to be mildly enlarged. 4. Possible patent foramen ovale (PFO) with left the right intracardiac shunt.
[2018-07-01] MEDS: POTASSIUM CHLORIDE 10 MEQ SR TABLET PO SCH ×2 (09:40→20:58)
[2018-07-01] MEDS: FUROSEMIDE 40 MG TAB PO SCH ×3 (09:40→16:42)
[2018-07-01] MEDS: METOPROLOL TART 50 MG TAB PO SCH ×2 (09:40→20:58)
[2018-07-01] MEDS: TAMOXIFEN CITRATE 10 MG TAB PO SCH (09:40)
[2018-07-01] MEDS: SPIRONOLACTONE 12.5MG PER 1/2 TABLET PO SCH (09:41)
[2018-07-01] MEDS: ENOXAPARIN 30 MG/0.3 ML SYR (J1650) SC SCH (09:48)
--- NOTE | 2018-07-01 13:51 | IPN ---
DATE: 07/01/2018 The patient is seen today on PCU. She was signed out to me earlier by Dr. English. She was admitted several days ago by Dr. Rodriguez with congestive heart failure. She has been on diuretics which have helped. Her blood pressure has been quite labile. She had a renovascular ultrasound this morning to see whether there could be an element of renal artery stenosis contributing to this. She reports that her edema has resolved, her breathing is better but she is feeling somewhat weak. No chest pains or palpitations. No nausea, vomiting, abdominal pain. Her current medication regimen calls for her to receive furosemide 40 mg twice a day, tamoxifen 20 mg daily, spironolactone 12-1/2 mg daily, Lovenox 30 mg daily, Lopressor 50 mg twice a day, potassium 10 mEq twice a day, atorvastatin 40 mg daily. ON EXAMINATION: Temperature is 98.9, blood pressure 163/76. Interestingly, it had been 112/65 last evening and as low as 84/44 yesterday afternoon. Oxygen (O2) saturation on room air is 95%. She is alert, oriented, pleasant, cooperative, not in any distress. There is no jugular venous distension. Her lungs are clear to auscultation. Heart: Has slightly irregular rhythm without any murmur, click or gallop. Abdomen is soft, nontender without any masses or organomegaly. Bowel sounds are active. I do not think there is any edema to speak of at this time. LABORATORY: Studies this morning showed a hemoglobin of 13.2, WBCs 5800, BUN is 32, creatinine 1.15. Sodium 143, potassium 3.5. Her echocardiogram showed normal global left ventricular systolic and diastolic function, aortic valve sclerosis without stenosis or regurgitation, moderate mitral regurgitation with some mild enlargement of the left atrium, possible patent foramen ovale. ASSESSMENT: Heart failure with preserved ejection fraction. Symptomatically improved. Hypertension, labile. Question renovascular hypertension. PLAN: The patient will continue on the current medication regimen. I was contemplating starting her on a calcium channel traci as an antihypertensive/afterload agent, but given her low blood pressures yesterday, I do not want to do this. I will order some physical therapy for her, and we will be awaiting her renal ultrasound report. SHYANN
[2018-07-01] MEDS: ACETAMINOPHEN TAB 650MG DOSE (2X325MG) PO PRN (16:16)
[2018-07-01] MEDS: ATORVASTATIN 20 MG TAB PO SCH (20:57)
[2018-07-02 04:00] VITALS: BP 123/72
[2018-07-02 05:57] LABS: HEMATOCRIT 40.4 % (36.0-47.0); MEAN CORPUSCULAR HEMOGLOBIN 29.3 pg (27.0-33.0); MEAN CORPUSCULAR HGB CONC 32.2 g/dl (32.0-36.5); PLATELET COUNT, AUTOMATED 176 10^3/uL (150-450); RED BLOOD COUNT 4.44 10^6/uL (4.00-5.40); WHITE BLOOD COUNT 6.3 10^3/uL (4.0-10.0)
[2018-07-02 06:19] LABS: CALCIUM LEVEL 8.7 MG/DL (8.8-10.2); CREATININE FOR GFR 1.21 MG/DL (0.55-1.30); GLOMERULAR FILTRATION RATE 44.6 (>32); POTASSIUM SERUM 3.6 MEQ/L (3.5-5.1)
[2018-07-02 08:00] VITALS: BP 117/61
[2018-07-02] MEDS: FUROSEMIDE 40 MG TAB PO SCH (08:38)
[2018-07-02] MEDS: ACETAMINOPHEN TAB 650MG DOSE (2X325MG) PO PRN ×2 (08:38→17:10)
[2018-07-02] MEDS: SPIRONOLACTONE 12.5MG PER 1/2 TABLET PO SCH (08:38)
[2018-07-02] MEDS: POTASSIUM CHLORIDE 10 MEQ SR TABLET PO SCH ×2 (08:38→20:14)
[2018-07-02] MEDS: TAMOXIFEN CITRATE 10 MG TAB PO SCH (08:39)
[2018-07-02] MEDS: METOPROLOL TART 50 MG TAB PO SCH ×2 (08:39→20:14)
[2018-07-02] MEDS: ENOXAPARIN 30 MG/0.3 ML SYR (J1650) SC SCH (08:40)
--- NOTE | 2018-07-02 09:11 | REP ---
Renal vascular ultrasound: Right Kidney: Measures 9.0 cm length. Extraparenchymal renal artery. Peak renal artery flow velocity the the the 125 cm/ sec Peak aortic velocity: 58.5 cm/sec Renal/aortic ratio: 2.1. Intraparenchymal renal arteries. Resistive index: upper pole 0.79 mid pole 0.79 lower pole 0.76 Acceleration time: upper pole 0.036 mid pole 0.030 lower pole 0.034 Left kidney: Measures 90.2 7 meters length. Extraparenchymal renal artery: Peak renal artery flow velocity: 98.5 cm/sec. Peak aortic velocity: 58.5 cm/sec Renal/aortic ratio: 1.7 Intraparenchymal renal arteries: Resistive index: Upper pole 0.82 mid pole 0.7 set lower pole 0.85 Acceleration time: Upper pole 0.036 mid pole 0.040 lower pole 0.032 Impression: There is no Doppler ultrasound evidence of renal artery stenosis. The intraparenchymal artery resistive indices are mildly elevated bilaterally , likely from chronic renal disease. Bilateral renal ultrasound: The right kidney measures 9.0 x 4.5 x 3.8 cm. The left kidney measures 9.2 x 4.2 x 4.2 cm. The kidneys are in the low normal size range. Renal cortical echogenicity is mildly increased, compatible with medical renal disease. There is no hydronephrosis on the right on the left. There are no renal calculi. There are no solid renal masses. There is a right renal mid pole cyst measuring 2.7 x 0.6 x 0.7 cm. There is a left renal upper pole cyst measuring 1.1 x 0.6 x 0 6 cm. There is a left renal lower pole exophytic cyst measuring 10.0 3.9 x 8.8 cm. All of the cysts appear to be simple cyst. Bladder: The bladder is incompletely distended and cannot be further evaluated. Impression: Bilateral simple renal cysts as described. Mildly echogenic renal cortices compatible with medical renal disease. The kidneys are in the low normal size range bilaterally. Electronically Signed by Sammy Ervin MD 07/01/2018 09:03 A
[2018-07-02 12:00] VITALS: BP 104/63
[2018-07-02 16:00] VITALS: BP 133/59
[2018-07-02 20:00] VITALS: BP 132/65
[2018-07-02] MEDS: ATORVASTATIN 20 MG TAB PO SCH (20:14)
[2018-07-02 23:59] VITALS: BP 107/66
[2018-07-03 03:20] VITALS: BP 168/70
[2018-07-03 04:00] VITALS: BP 134/66
[2018-07-03 05:24] LABS: HEMATOCRIT 39.3 % (36.0-47.0); HEMOGLOBIN 12.6 g/dl (12.0-15.5); MEAN CORPUSCULAR HEMOGLOBIN 29.8 pg (27.0-33.0); MEAN CORPUSCULAR HGB CONC 32.1 g/dl (32.0-36.5); MEAN CORPUSCULAR VOLUME 92.9 fl (80.0-96.0); PLATELET COUNT, AUTOMATED 165 10^3/uL (150-450); RED BLOOD COUNT 4.23 10^6/uL (4.00-5.40); WHITE BLOOD COUNT 5.5 10^3/uL (4.0-10.0)
--- NOTE | 2018-07-03 05:46 | IPN ---
DATE OV VISIT: 07/02/2018 The patient is seen today on progressive care unit (PCU). She seems a little more energetic today. She says she has been up out of bed and has done some walking with the physical therapist. She is not having any cough, no sensation of chest congestion. No chest pains or palpitations. She is not having any edema at this point. CURRENT MEDICATIONS: - Lasix 40 mg twice a day - Nolvadex 20 mg daily - Aldactone 12-1/2 mg daily - Lovenox 30 mg daily - Lopressor 50 mg twice a day - potassium 10 mEq twice a day - atorvastatin 40 mg daily PHYSICAL EXAMINATION: VITAL SIGNS: On examination her highest blood pressure since last evening was 123/67. This morning it was 117/61, temperature is 98.0, pulse 62, respirations 18, O2 saturations 96% on room air. GENERAL: She is alert, pleasant, cooperative, not at all in any distress. HEENT: No facial weakness. Speech is clear. NECK: No neck masses, tenderness or adenopathy. No carotid bruits. I do not think there is any jugular venous distension or hepatojugular reflux. LUNG: Her lungs were clear to auscultation. HEART: Heart has regular rhythm and not hearing any murmur, click or gallop. LABORATORY DATA: Hemoglobin was 13.0, WBCs 6300. Her BUN is 38, creatinine is 1.1. Two days ago her BUN had been 27. Potassium is 3.6. Her renal ultrasound showed some renal cysts but no hydronephrosis and no evidence of renal artery stenosis. ASSESSMENT: 1. Heart failure with preserved ejection fraction symptomatically improved. 2. Hypertension, labile. Blood pressure appears to have settled down. 3. Azotemia most likely due to increased diuretic dosage. PLAN: The patient will continue on her current medication regimen. The only change I am going to make is to back off on her furosemide, given that her BUN is climbing. Looking at her in and out (I and O) she was actually net positive yesterday but I think she is not fluid overloaded at this point. Assuming she is feeling well tomorrow and her labs are stable I think she could be discharged. [facility]
[2018-07-03 06:14] LABS: CALCIUM LEVEL 8.7 MG/DL (8.8-10.2); CREATININE FOR GFR 1.31 MG/DL (0.55-1.30); GLOMERULAR FILTRATION RATE 40.7 (>32); POTASSIUM SERUM 4.4 MEQ/L (3.5-5.1)
[2018-07-03 08:00] VITALS: BP 134/75
[2018-07-03] MEDS: SPIRONOLACTONE 12.5MG PER 1/2 TABLET PO SCH (08:42)
[2018-07-03 08:43] VITALS: BP 134/75
[2018-07-03] MEDS: METOPROLOL TART 50 MG TAB PO SCH (08:43)
[2018-07-03] MEDS: POTASSIUM CHLORIDE 10 MEQ SR TABLET PO SCH (08:43)
[2018-07-03] MEDS: ENOXAPARIN 30 MG/0.3 ML SYR (J1650) SC SCH (08:44)
[2018-07-03] MEDS: TAMOXIFEN CITRATE 10 MG TAB PO SCH (08:54)
[2018-07-03] MEDS ORDERED: FUROSEMIDE 40 MG TAB PO SCH (09:00)
[2018-07-03] MEDS ORDERED: LOPR1TAB6 PO (09:22)
--- NOTE | 2018-07-03 13:51 | DSES ---
DATE OF ADMISSION: 06/29/2018 DATE OF DISCHARGE: 07/03/2018 PRIMARY CARE PHYSICIAN: Dr. José Antonio Rodriguez ATTENDING PHYSICIAN: Dr. Von Barber HISTORY OF PRESENT ILLNESS: This is an 87-year-old female who follows with Dr. José Antonio Rodriguez for her primary care who presented to his office on 06/29/2018 with another episode of sudden shortness of breath that awakened her. She was showing edema of her legs and a systolic pressure in the 180s. The patient was subsequently admitted to the family medicine service. HOSPITAL COURSE: The patient was placed on Lasix 40 mg IV every 6. The patient showed a net negative of 1.2 liters since admission with significant improvement in symptoms. The patient was subsequently transitioned to 40 mg by mouth twice a day of her furosemide. However, her diuresis slowed and her creatinine and BUN started to climb. She was decreased back to 40 mg by mouth daily along with spironolactone 12.5 mg daily with continuing stability of her dyspnea and no increasing lower extremity edema. The patient passed a physical therapy evaluation and was cleared safe for discharge. PROCEDURES COMPLETED DURING HOSPITALIZATION: Include echocardiogram. This demonstrated a questionable PFO with an EF of 60-65%, pulmonary artery pressure of pressure of 30 to 40 mm. The patient also shows moderate mitral regurgitation with mildly enlarged left atrium. The patient is also status post renal ultrasound to rule out renal artery stenosis. This was negative. PHYSICAL EXAMINATION: Today, vital signs are stable. The patient is afebrile. HEENT: Neck is supple, without lymphadenopathy or jugular venous distention (JVD). Cardiovascular: Heart rhythm irregular. Pulmonary: Lungs are clear. Abdomen: Soft and nontender. Bilateral lower extremities are without any edema. Neurologic: The patient is alert and oriented times three. Psych: Affect is appropriate. Conversation is congruent. Patient maintains eye contact. ASSESSMENT: 1. Heart failure with preserved ejection fraction. 2. Hypertension. 3. Pulmonary hypertension with increased pressures. 4. Patent foramen ovale (PFO). PLAN: The patient will be discharged to home. Diet is 2 gram sodium with 1800 mL fluid restriction. Activity is as tolerated. She will followup with her PCP on 07/07/2018 at 11:30. She will have a BMP completed within the next two days to followup on her creatinine levels. She will followup with Dr. Benavides within the next one to two weeks. The patient's clinical course was reviewed with Dr. Benavides and he is agreeable to current plan and agreeable to followup in his office. MEDICATIONS: - acetaminophen 1000 mg one by mouth twice a day - aspirin 81 mg one daily - atorvastatin 40 mg daily in the evening - fluticasone one spray to each nostril daily - furosemide 40 mg one by mouth daily - Probiotic twice a day - metoprolol tartrate 50 mg twice a day - metronidazole 0.75% cream one application topically daily - multivitamin with iron and folic acid one daily - oxybutynin 3.9 mg transdermal twice weekly - potassium chloride 10 mEq by mouth twice a day - Systane eye drops one drop both eyes twice a day - spironolactone 12.5 mg daily - tamoxifen 20 mg daily - vitamin D 1000 international units by mouth daily The patient is discharged in stable and satisfactory condition with no further questions at time of discharge.
== END 2018-07-03 11:36 | disposition home or self-care (01) | DRG 291 ==
LOC: M PCU 16:56
PROVIDERS: ADMIT Family Medicine; ATTEND Family Medicine
DX: I11.0 Hypertensive heart disease with heart failure (principal); I50.31 Acute diastolic (congestive) heart failure; Q21.1 Atrial septal defect; K57.32 Diverticulitis of large intestine without perforation or abscess without bleeding; A04.71 Enterocolitis due to Clostridium difficile, recurrent; I27.20 Pulmonary hypertension, unspecified; Z79.82 Long term (current) use of aspirin; Z79.899 Other long term (current) drug therapy; I25.10 Atherosclerotic heart disease of native coronary artery without angina pectoris; I25.2 Old myocardial infarction; E78.5 Hyperlipidemia, unspecified; M81.0 Age-related osteoporosis without current pathological fracture; E55.9 Vitamin D deficiency, unspecified; M19.90 Unspecified osteoarthritis, unspecified site; Z85.3 Personal history of malignant neoplasm of breast

== ENCOUNTER → 2018-07-04 | Outpatient (CLI) | payer MEDICARE, OTHER ==
[~2018-07-04] MED LIST changes: +MULT1TAB50 PO; +SPIR-10 PO; +VITAD1000T PO
[2018-07-04 08:53] LABS: CALCIUM LEVEL 9.5 MG/DL (8.8-10.2); CREATININE FOR GFR 1.41 MG/DL (0.55-1.30); GLOMERULAR FILTRATION RATE 37.4 (>32); POTASSIUM SERUM 4.2 MEQ/L (3.5-5.1)
== END ==
LOC: M LAB 07:46
PROVIDERS: ATTEND Nurse Practitioner Family
DX: I11.9 Hypertensive heart disease without heart failure (principal)

== ENCOUNTER → 2018-07-06 | Outpatient (CLI) | payer MEDICARE, OTHER ==
[2018-07-06 09:29] LABS: CREATININE FOR GFR 1.34 MG/DL (0.55-1.30); GLOMERULAR FILTRATION RATE 39.6 (>32); POTASSIUM SERUM 3.9 MEQ/L (3.5-5.1)
== END ==
LOC: M LAB 07:56
PROVIDERS: ATTEND Family Medicine
DX: I50.30 Unspecified diastolic (congestive) heart failure (principal)

== ENCOUNTER → 2018-07-13 | Outpatient (REF) | payer MEDICARE, OTHER ==
[~2018-07-13] MED LIST changes: +BOOSLIQ77 PO
[2018-07-13 12:58] LABS: HEMATOCRIT 42.9 % (36.0-47.0); HEMOGLOBIN 13.6 g/dl (12.0-15.5); MEAN CORPUSCULAR HEMOGLOBIN 29.7 pg (27.0-33.0); MEAN CORPUSCULAR HGB CONC 31.7 g/dl (32.0-36.5); MEAN CORPUSCULAR VOLUME 93.7 fl (80.0-96.0); PLATELET COUNT, AUTOMATED 192 10^3/uL (150-450); RED BLOOD COUNT 4.58 10^6/uL (4.00-5.40); WHITE BLOOD COUNT 5.4 10^3/uL (4.0-10.0)
[2018-07-13 13:08] LABS: CALCIUM LEVEL 9.2 MG/DL (8.8-10.2); CREATININE FOR GFR 1.11 MG/DL (0.55-1.30); GLOMERULAR FILTRATION RATE 49.3 (>32); POTASSIUM SERUM 4.7 MEQ/L (3.5-5.1)
== END ==
LOC: M SFHCADAM 09:08
PROVIDERS: ATTEND Family Medicine
DX: I50.30 Unspecified diastolic (congestive) heart failure (principal); R10.9 Unspecified abdominal pain
CPT/HCPCS: 80048; 85027; G0463

== ENCOUNTER 2018-07-14 11:07 | Observation (INO) | payer MEDICARE, OTHER ==
[~2018-07-14] VITALS: Ht 154.9 cm; Wt 57.2 kg
[~2018-07-14 11:07] MED LIST changes: -BOOSLIQ77 PO
[2018-07-14 11:32] VITALS: BP 150/77
[2018-07-14 11:39] VITALS: BP 150/77
[2018-07-14] MEDS ORDERED: METO50TA7 PO (11:59)
[2018-07-14] MEDS ORDERED: BOOSLIQ77 PO (11:59)
[2018-07-14] MEDS ORDERED: ACETAMINOPHEN TAB 650MG DOSE (2X325MG) PO PRN (12:00)
--- NOTE | 2018-07-14 12:10 | HPE ---
DATE OF ADMISSION: 07/14/2018 Katarzyna was admitted from the office with congestive heart failure. History and physical was generated on the office based Triage system and a copy should be added to her hospital record.
[2018-07-14 12:46] LABS: HEMATOCRIT 39.3 % (36.0-47.0); HEMOGLOBIN 12.6 g/dl (12.0-15.5); MEAN CORPUSCULAR HEMOGLOBIN 29.5 pg (27.0-33.0); MEAN CORPUSCULAR HGB CONC 32.1 g/dl (32.0-36.5); PLATELET COUNT, AUTOMATED 174 10^3/uL (150-450); RED BLOOD COUNT 4.27 10^6/uL (4.00-5.40); WHITE BLOOD COUNT 5.9 10^3/uL (4.0-10.0)
[2018-07-14 13:10] LABS: ALBUMIN 3.5 GM/DL (3.2-5.2); BILIRUBIN,TOTAL 0.5 MG/DL (0.2-1.0); CREATININE FOR GFR 1.2 MG/DL (0.55-1.30); POTASSIUM SERUM 4.5 MEQ/L (3.5-5.1); TOTAL PROTEIN 6.3 GM/DL (6.4-8.2)
[2018-07-14] MEDS: LACTOBACILLUS ACIDOPHILUS CAP (BACID) PO SCH ×2 (13:46→18:06)
[2018-07-14] MEDS: FUROSEMIDE 100 MG/10 ML VIAL (J1940) IV SCH ×3 (13:47→23:37)
[2018-07-14] MEDS: ENOXAPARIN 30 MG/0.3 ML SYR (J1650) SC SCH (13:48)
--- NOTE | 2018-07-14 14:15 | REP ---
Chest two views HISTORY: CHF Comparison: 06/29/2018 The lungs are clear. The heart is upper limits of normal in size. The pulmonary vasculature is normal in appearance. Degenerative change is present in the thoracic spine. IMPRESSION: No acute disease. Electronically Signed by Faheem Marks MD 07/14/2018 02:07 P
[2018-07-14] MEDS ORDERED: SLF 3 ML SYR IV PRN (15:30)
[2018-07-14 16:00] VITALS: BP 118/55
--- NOTE | 2018-07-14 16:39 | ECGEPIP ---
Stationary ECG Study [facility] Test Date: 2018-07-14 Pat Name: LEA CAMPBELL Department: Room: [place] [address] Gender: F [employer]: MARJORIE : 1930 Requested By: José Antonio Rodriguez Order Number: [id number] Reading MD: Leif Coombs Measurements Intervals [place] Rate: 53 P: 79 AL: 140 QRS: 55 QRSD: 98 T: 71 QT: 428 QTc: 405 Interpretive Statements Sinus bradycardia Normal EKG No significant change when compared to prior tracing of 06/29/2018 Electronically Signed On 07-14-2018 16:39:34 EDT by Leif Coombs
[2018-07-14 20:00] VITALS: BP 140/67
[2018-07-14] MEDS: POTASSIUM CHLORIDE 10 MEQ SR TABLET PO SCH (20:51)
[2018-07-14] MEDS: ATORVASTATIN 20 MG TAB PO SCH (20:52)
[2018-07-14] MEDS: METOPROLOL TART 50 MG TAB PO SCH (20:53)
[2018-07-14 20:55] VITALS: BP 124/58
[2018-07-14] MEDS: SLF 3 ML SYR IV SCH (22:00)
[2018-07-15] VITALS (8 sets, daily range): BP systolic 107–141; BP diastolic 52–81
[2018-07-15 03:34] LABS: HEMATOCRIT 42.6 % (36.0-47.0); HEMOGLOBIN 13.8 g/dl (12.0-15.5); MEAN CORPUSCULAR HEMOGLOBIN 29.6 pg (27.0-33.0); MEAN CORPUSCULAR HGB CONC 32.4 g/dl (32.0-36.5); MEAN CORPUSCULAR VOLUME 91.4 fl (80.0-96.0); PLATELET COUNT, AUTOMATED 175 10^3/uL (150-450); RED BLOOD COUNT 4.66 10^6/uL (4.00-5.40); WHITE BLOOD COUNT 6.1 10^3/uL (4.0-10.0)
[2018-07-15 04:07] LABS: CALCIUM LEVEL 8.4 MG/DL (8.8-10.2); CREATININE FOR GFR 1.18 MG/DL (0.55-1.30); GLOMERULAR FILTRATION RATE 45.9 (>32); MAGNESIUM LEVEL 1.9 MG/DL (1.8-2.4); POTASSIUM SERUM 3.2 MEQ/L (3.5-5.1)
[2018-07-15] MEDS: SLF 3 ML SYR IV SCH ×3 (06:00→22:00)
[2018-07-15] MEDS ORDERED: POTASSIUM CHLORIDE 10 MEQ SR TABLET PO ONE ×2 (07:00→10:00)
[2018-07-15] MEDS: ENOXAPARIN 30 MG/0.3 ML SYR (J1650) SC SCH (08:09)
[2018-07-15] MEDS: ASPIRIN 81 MG ENTERIC TAB PO SCH (08:09)
[2018-07-15] MEDS: LACTOBACILLUS ACIDOPHILUS CAP (BACID) PO SCH ×3 (08:09→17:12)
[2018-07-15] MEDS: POTASSIUM CHLORIDE 10 MEQ SR TABLET PO SCH ×2 (08:10→20:17)
[2018-07-15] MEDS: METOPROLOL TART 50 MG TAB PO SCH ×2 (08:10→20:18)
[2018-07-15] MEDS: FUROSEMIDE 20 MG TAB PO SCH (12:59)
[2018-07-15 15:31] LABS: CALCIUM LEVEL 8.3 MG/DL (8.8-10.2); CREATININE FOR GFR 1.33 MG/DL (0.55-1.30); POTASSIUM SERUM 3.9 MEQ/L (3.5-5.1)
--- NOTE | 2018-07-15 17:38 | IPNPDOC ---
Subjective Date Seen The patient was seen on 07/15/18. Subjective Chief Complaint/HPI dyspnea Events since last encounter She reports that she is feeling well. Dyspnea resolved. She did have a run of V tach last night, which was asymptomatic. She was hypokalemic this a.m., and repeat labs were ordered. She has been seen by PT, who cleared her for home. Pulmonary: Denies: Dyspnea, Cough Cardiovascular: Denies: Chest Pain, Palpitations Gastrointestinal: Denies: Nausea, Vomiting, Diarrhea, Constipation Neurological: Denies: Weakness Psych: Reports: Mood Normal Objective Physical Examination General Exam: Positive: Alert, Cooperative, No Acute Distress Chest Exam: Positive: Clear to auscultation, Normal air movement Heart Exam: Positive: Rate Normal; Negative: Tachycardic Abdomen Exam: Positive: Normal bowel sounds, Soft; Negative: Tenderness Skin Exam: Positive: Nl turgor and temperature Psych Exam: Positive: Mental status NL A-FIB/CHADSVASC A-FIB History Current/History of A-Fib/PAF?: No Assessment /Plan Problems (1) Ventricular tachycardia seen on electrotype servicer Status: Acute Problem Text: Resolved spontaneously, occurred while patient diuresed and hypokalemic. Will monitor overnight on tele. (2) Dyspnea Problem Text: BNP trended down from admission following diuresis; likely secondary to CHF. This was relatively minor, and she has been oxygenating well while here. Today she denies any dyspnea. Moved to med-surg with telemetry. (3) Heart failure with preserved ejection fraction Status: Acute Problem Text: Likely source of dyspnea. Received IV diuretics yesterday, and switched back to home Lasix today. Will continue to monitor. (4) Hypertension Problem Text: Currently controlled on home meds. Plan/VTE VTE Prophylaxis Ordered?: Yes VS, I&O, 24H, Fishbone Vital Signs/I&O Vital Signs Date Time Temp Pulse Resp B/P (MAP) Pulse Ox O2 Delivery O2 Flow Rate FiO2 07/15/18 13:30 98.3 107 17 107/52 (70) 93 I&O- Last 24 Hours up to 6 AM 07/15/18 06:00 Intake Total 1120 ml Output Total 3150 ml Balance -2030 ml Laboratory Data 24H LABS Laboratory Tests 2 07/15/18 03:28: Nucleated Red Blood Cells % (auto) 0.0, Anion Gap 5L, Glomerular Filtration Rate 45.9, Blood Urea Nitrogen 23H, Creatinine 1.18, Sodium Level 141, Potassium Level 3.2#L, Chloride Level 104, Carbon Dioxide Level 32, Calcium Level 8.4L, Magnesium Level 1.9, WK-[id number]-Type Natriuretic Peptide 1605H 07/15/18 14:42: Anion Gap 5L, Glomerular Filtration Rate 40.0, Blood Urea Nitrogen 27H, Creatinine 1.33H, Sodium Level 141, Potassium Level 3.9#, Chloride Level 106, Carbon Dioxide Level 30, Calcium Level 8.3L CBC/BMP Laboratory Tests 07/15/18 03:28 Red Blood Count 4.66, Mean Corpuscular Volume 91.4, Mean Corpuscular Hemoglobin 29.6, Mean Corpuscular Hemoglobin Concent 32.4, Red Cell Distribution Width 13.5, Calcium Level 8.4 L 07/15/18 14:42 Calcium Level 8.3 L JOSEPH AKERS DO July 15, 2018 17:38
[2018-07-15] MEDS: ATORVASTATIN 20 MG TAB PO SCH (20:18)
[2018-07-16 06:00] VITALS: BP 137/65
[2018-07-16] MEDS: SLF 3 ML SYR IV SCH (06:00)
[2018-07-16 06:08] LABS: HEMATOCRIT 43.5 % (36.0-47.0); HEMOGLOBIN 13.8 g/dl (12.0-15.5); MEAN CORPUSCULAR HEMOGLOBIN 29.1 pg (27.0-33.0); MEAN CORPUSCULAR HGB CONC 31.7 g/dl (32.0-36.5); MEAN CORPUSCULAR VOLUME 91.8 fl (80.0-96.0); PLATELET COUNT, AUTOMATED 175 10^3/uL (150-450); RED BLOOD COUNT 4.74 10^6/uL (4.00-5.40); WHITE BLOOD COUNT 5.2 10^3/uL (4.0-10.0)
[2018-07-16 06:29] LABS: CALCIUM LEVEL 8.7 MG/DL (8.8-10.2); CREATININE FOR GFR 1.2 MG/DL (0.55-1.30)
[2018-07-16] MEDS: LACTOBACILLUS ACIDOPHILUS CAP (BACID) PO SCH ×2 (08:05→11:40)
[2018-07-16] MEDS: ENOXAPARIN 30 MG/0.3 ML SYR (J1650) SC SCH (08:05)
[2018-07-16] MEDS: POTASSIUM CHLORIDE 10 MEQ SR TABLET PO SCH (08:05)
[2018-07-16] MEDS: FUROSEMIDE 20 MG TAB PO SCH (08:05)
[2018-07-16 08:06] VITALS: BP 136/66
[2018-07-16] MEDS: METOPROLOL TART 50 MG TAB PO SCH (08:06)
[2018-07-16] MEDS: ASPIRIN 81 MG ENTERIC TAB PO SCH (08:06)
== END 2018-07-16 12:38 | disposition home or self-care (01) ==
LOC: INTOOBSV 11:11 → M ICU 11:11 → M MSPAV 07-15 13:38
PROVIDERS: ADMIT Family Medicine; ATTEND Family Medicine
DX: I50.33 Acute on chronic diastolic (congestive) heart failure (principal); I16.0 Hypertensive urgency; K52.89 Other specified noninfective gastroenteritis and colitis; I25.10 Atherosclerotic heart disease of native coronary artery without angina pectoris; A04.71 Enterocolitis due to Clostridium difficile, recurrent; E78.49 Other hyperlipidemia; E55.9 Vitamin D deficiency, unspecified; Z85.3 Personal history of malignant neoplasm of breast; Z79.82 Long term (current) use of aspirin; Z79.899 Other long term (current) drug therapy; Z88.1 Allergy status to other antibiotic agents; Z88.8 Allergy status to other drugs, medicaments and biological substances
CPT/HCPCS: 36415; 71046; 80048; 80053; 83735; 83880; 85027; 93005; 96372; 96374; 96376; 97161; G0378; G0463; J1650; J1940

== ENCOUNTER → 2018-07-25 | Outpatient (REF) | payer MEDICARE, OTHER ==
[~2018-07-25] MED LIST changes: +BOOSLIQ77 PO
[2018-07-25 12:57] LABS: CALCIUM LEVEL 8.7 MG/DL (8.8-10.2); CREATININE FOR GFR 1.08 MG/DL (0.55-1.30); GLOMERULAR FILTRATION RATE 50.9 (>32); POTASSIUM SERUM 4.1 MEQ/L (3.5-5.1)
== END ==
LOC: M SFHCADAM 09:34
PROVIDERS: ATTEND Family Medicine
DX: I11.9 Hypertensive heart disease without heart failure (principal); I50.30 Unspecified diastolic (congestive) heart failure
CPT/HCPCS: 80048; G0463

== ENCOUNTER 2018-08-04 10:35 | Emergency (ER) | payer MEDICARE, OTHER ==
[~2018-08-04] VITALS: Ht 154.9 cm; Wt 59.2 kg
--- NOTE | 2018-08-04 11:17 | REP ---
CT Head without contrast HISTORY: Trauma COMPARISON: 05/01/2017 Areas of decreased attenuation are present in the periventricular and subcortical white matter. This represents small-vessel ischemic disease. There is no intraparenchymal hemorrhage, acute infarct, mass or midline shift. The ventricular system and cortical sulci as well as subarachnoid space in the posterior fossa are dilated consistent with moderate volume loss. There is no extra cerebral collection. There is no fracture. Mucosal thickening is present in the ethmoid sinuses. IMPRESSION: Small-vessel ischemic disease. 2. Moderate volume loss. Electronically Signed by Faheem Marks MD 08/04/2018 11:09 A
[2018-08-04] MEDS ORDERED: ADACEL/BOOSTRIX VACCINE (DIPHTH/PERTUSS/ACELL/TETANUS)0.5ML SYR (90715) IM ONE (12:00)
[2018-08-04 12:30] VITALS: BP 140/65
== END 2018-08-04 12:40 | disposition home or self-care (01) ==
LOC: EDSEX 10:35 → EDBD 10:35 → M ED 10:35
DX: S00.01XA Abrasion of scalp, initial encounter (principal); S00.03XA Contusion of scalp, initial encounter; W18.39XA Other fall on same level, initial encounter; Y92.480 Sidewalk as the place of occurrence of the external cause; E78.9 Disorder of lipoprotein metabolism, unspecified; I25.10 Atherosclerotic heart disease of native coronary artery without angina pectoris; Z79.899 Other long term (current) drug therapy; Z79.82 Long term (current) use of aspirin; Z88.1 Allergy status to other antibiotic agents; Z88.2 Allergy status to sulfonamides; Z88.8 Allergy status to other drugs, medicaments and biological substances

== ENCOUNTER → 2018-09-01 | Outpatient (CLI) | payer MEDICARE, OTHER ==
--- NOTE | 2018-09-01 17:40 | REPMRS ---
Patient History The patient states she had a clinical breast exam in 06/2018. Patient is postmenopausal, has history of cancer in the left breast at age 84, had previous chest radiation therapy at age 84, and is nulliparous. Family history of endometrial cancer at age 50 or over in mother. Malignant ultrasound-guided core biopsy of the left breast, September 04, 2015. Radiation therapy of the left breast, 2016. Taking tamoxifen for 3 years. Digital Woman Screen Mammo: September 01, 2018 - Exam #: [id number] Bilateral CC and MLO view(s) were taken. Technologist: Nuvia Simms, Technologist Prior study comparison: August 31, 2017, bilateral digital woman screen mammo performed at [facility]. August 30, 2016, digital woman screen mammo performed at [facility]. August 21, 2015, digital woman screen mammo performed at [facility]. FINDINGS: There are scattered fibroglandular densities. There are stable post treatment changes in the left breast. There is a moderate amount of residual fibroglandular tissue which is fairly symmetric. There is no interval development of dominant mass, architectural distortion, or clustered microcalcification typical of malignancy. There has been no change in the appearance of the mammogram from the prior studies. 3-D tomosynthesis shows no additional findings. Assessment: BI-RADS/ACR category 2 mammogram. Benign Findings. Recommendation Routine screening mammogram of both breasts in 1 year (for women over age 40). This mammogram was interpreted with the aid of an FDA-approved computer-aided dectection system. Electronically Signed By: Ryne Pastrana MD 09/01/18 [id number]
== END ==
LOC: M WHC 11:57
PROVIDERS: ATTEND Nurse Practitioner Family
DX: Z12.31 Encounter for screening mammogram for malignant neoplasm of breast (principal); Z78.0 Asymptomatic menopausal state; Z85.3 Personal history of malignant neoplasm of breast; Z92.3 Personal history of irradiation; Z80.49 Family history of malignant neoplasm of other genital organs; Z79.810 Long term (current) use of selective estrogen receptor modulators (SERMs)

== ENCOUNTER 2018-10-01 07:25 | Emergency (ER) | payer MEDICARE, OTHER ==
[~2018-10-01] VITALS: Ht 154.9 cm; Wt 58.3 kg
[2018-10-01] MEDS ORDERED: NS 500 ML IV ONE (07:45)
[2018-10-01 07:56] LABS: BASO % 0.8 % (0.0-1.0); EOS # 0.1 10^3/uL (0.0-0.50); EOS % 1.4 % (0.0-3.0); HEMATOCRIT 43.1 % (36.0-47.0); HEMOGLOBIN 13.7 g/dl (12.0-15.5); LYMPH # 1.4 10^3/uL (1.5-4.5); MEAN CORPUSCULAR HEMOGLOBIN 30.1 pg (27.0-33.0); MEAN CORPUSCULAR HGB CONC 31.8 g/dl (32.0-36.5); MEAN CORPUSCULAR VOLUME 94.7 fl (80.0-96.0); MONO # 0.5 10^3/uL (0.0-0.8); MONO % 10.5 % (0.0-5.0); NEUTROPHILS # 3.1 10^3/uL (1.8-7.7); NEUTROPHILS % 59.9 % (36.0-66.0); PLATELET COUNT, AUTOMATED 179 10^3/uL (150-450); RED BLOOD COUNT 4.55 10^6/uL (4.00-5.40); WHITE BLOOD COUNT 5.1 10^3/uL (4.0-10.0)
[2018-10-01 08:22] LABS: ALBUMIN 3.8 GM/DL (3.2-5.2); BILIRUBIN,DIRECT 0.3 MG/DL (0.0-0.2); BILIRUBIN,TOTAL 0.9 MG/DL (0.2-1.0); TOTAL PROTEIN 7.3 GM/DL (6.4-8.2)
[2018-10-01] MEDS ORDERED: FUROSEMIDE 20 MG TAB PO ONE (08:30)
[2018-10-01] MEDS ORDERED: METOPROLOL TART 50 MG TAB PO ONE (08:30)
[2018-10-01 08:31] VITALS: BP 182/77
[2018-10-01 08:34] LABS: CALCIUM LEVEL 9.1 MG/DL (8.8-10.2); CREATININE FOR GFR 0.98 MG/DL (0.55-1.30); GLOMERULAR FILTRATION RATE 56.9 (>32); POTASSIUM SERUM 3.9 MEQ/L (3.5-5.1)
[2018-10-01 10:58] VITALS: BP 156/92
[2018-10-06] MEDS ORDERED: TAMO20TA8 PO (10:18)
== END 2018-10-01 11:25 | disposition home or self-care (01) ==
LOC: M ED 07:25
DX: R19.7 Diarrhea, unspecified (principal); Z87.19 Personal history of other diseases of the digestive system; I11.9 Hypertensive heart disease without heart failure; I25.2 Old myocardial infarction; I25.10 Atherosclerotic heart disease of native coronary artery without angina pectoris; E78.9 Disorder of lipoprotein metabolism, unspecified; E55.9 Vitamin D deficiency, unspecified; Z85.3 Personal history of malignant neoplasm of breast; Z88.2 Allergy status to sulfonamides; Z88.8 Allergy status to other drugs, medicaments and biological substances; Z88.1 Allergy status to other antibiotic agents; Z79.899 Other long term (current) drug therapy; Z79.82 Long term (current) use of aspirin

== ENCOUNTER → 2018-10-04 | Outpatient (CLI) | payer MEDICARE, OTHER ==
--- NOTE | 2018-10-04 13:46 | REP ---
CT ABDOMEN AND PELVIS WITHOUT CONTRAST: CT abdomen and pelvis performed without IV contrast. Sagittal and coronal reconstruction images are performed. Calcified granuloma is seen in the left lower lobe. There are fibrotic changes in the visualized lung bases. The heart is mildly enlarged. Liver is grossly unremarkable. The patient has had a prior cholecystectomy. The spleen is normal in size. Adrenal glands are grossly unremarkable as is the pancreas. There is a large cyst of the lower pole of the left kidney 8.2 cm in diameter. There is no hydronephrosis or nephrolithiasis bilaterally. There is moderate atherosclerotic calcification of the abdominal aorta without aneurysm. No gross adenopathy is seen. No free air or free fluid is seen. There is no definite bowel wall thickening. There is sigmoid diverticulosis. No gross pelvic abnormality is seen but visualization is limited due to bilateral metallic hip hardware. There are degenerative changes of the spine. IMPRESSION: Somewhat limited exam due to lack of IV contrast and presence of a right hip prosthesis and metallic internal fixation in the left hip causing streak artifact and limiting evaluation of the pelvic structures. The patient has had a prior cholecystectomy. There is a large left renal cyst. There does appear to be sigmoid diverticulosis but there is no definite evidence of diverticulitis. No other evidence of bowel inflammation. No free air or free fluid. Electronically Signed by Sammy Wong MD 10/05/2018 11:04 A
== END ==
LOC: M RAD 11:40
PROVIDERS: ATTEND Family Medicine
DX: N28.1 Cyst of kidney, acquired (principal); K57.92 Diverticulitis of intestine, part unspecified, without perforation or abscess without bleeding; Z96.641 Presence of right artificial hip joint; Z90.49 Acquired absence of other specified parts of digestive tract

== ENCOUNTER → 2018-10-17 | Outpatient (CLI) | payer MEDICARE, OTHER ==
--- NOTE | 2018-10-17 12:38 | REP ---
MRA BRAIN WITHOUT CONTRAST: HISTORY: Rule out infarction. 3D [id number] MR angiography was performed at the level of the [place] of [place]. There is no aneurysm or arteriovenous malformation. Mild atherosclerotic disease involves the vertical petrous, cavernous and supraclinoid internal carotid arteries. The major intracranial vessels are patent. The left vertebral artery is dominant. IMPRESSION: 1. There is no aneurysm or arteriovenous malformation. 2. Atherosclerotic disease as described above. Electronically Signed by Faheem Marks MD 10/17/2018 12:42 P
--- NOTE | 2018-10-17 12:48 | REP ---
MR BRAIN WITHOUT CONTRAST: HISTORY: Rule out infarction . Areas of increased signal intensity on T2-weighted images are present in the periventricular and subcortical white matter. These represents small vessel ischemic disease. There is no intraparenchymal hemorrhage, infarct, mass or midline shift. The ventricular system and cortical sulci are dilated consistent with moderate volume loss. There i s no extracerebral collection. The sinuses are clear. IMPRESSION: 1. Small vessel ischemic disease. 2. Moderate volume loss. Electronically Signed by Faheem Marks MD 10/17/2018 01:30 P
--- NOTE | 2018-10-17 13:21 | REP ---
MRA CAROTIDS WITHOUT AND WITH CONTRAST: HISTORY: Rule out infarction. Unenhanced and contrast enhanced MR angiography were performed at the level of the carotid bifurcations. The distal common carotid arteries and origins of the external and internal carotid arteries are normal. The vertebral arteries are patent. The left vertebral artery is dominant. There are no atherosclerotic lesions. IMPRESSION: Normal MRA carotids. Electronically Signed by Faheem Marks MD 10/17/2018 01:31 P
== END ==
LOC: M RAD 10:23
PROVIDERS: ATTEND Family Medicine
DX: I25.10 Atherosclerotic heart disease of native coronary artery without angina pectoris (principal); I67.82 Cerebral ischemia; I65.23 Occlusion and stenosis of bilateral carotid arteries